=== PATIENT | female | born 1945 | race Caucasian/White ===

== ENCOUNTER → 2017-08-11 | Outpatient (CLI) | payer MEDICARE ==
--- NOTE | 2017-08-11 13:25 | MM ---
Reason for exam: additional evaluation requested from prior study. Last mammogram was performed 11 months ago. History: Patient is postmenopausal, has history of breast cancer at age 62, and is nulliparous. Mastectomy of the right breast, 2006. 3 excisional biopsies of the left breast. Took estrogen for 5 years. Took progesterone for 5 years. Taking antineoplastic for 4 years beginning at age 62. Physical Findings: Nurse did not find any significant physical abnormalities on exam. MG Diagnostic Mammo LT w CAD CC and MLO view(s) were taken of the left breast. Prior study comparison: August 30, 2016, left breast MG 3d diag mammo w/cad LT. August 20, 2015, left breast MG 3d diag mammo w/cad LT. There are scattered fibroglandular densities. Finding: There are typically benign calcifications in the left breast. No significant changes in finding since August 30, 2016 and August 20, 2015. These results were verbally communicated with the patient and result sheet given to the patient on 08/11/17. ASSESSMENT: Benign, BI-RAD 2 RECOMMENDATION: Follow-up diagnostic mammogram of the left breast in 1 year.
== END | disposition home or self-care (01) ==
LOC: RADMAMWWP 12:37
PROVIDERS: ATTEND Family Medicine
DX: C50.919 Malignant neoplasm of unspecified site of unspecified female breast (principal)

== ENCOUNTER → 2017-08-11 | Outpatient (CLI) | payer MEDICARE | END | disposition home or self-care (01) | LOC: LABPAT 13:13 | PROVIDERS: ATTEND Orthopaedic Surgery | DX: Z01.812 Encounter for preprocedural laboratory examination (principal); M16.11 Unilateral primary osteoarthritis, right hip | CPT/HCPCS: 36415; 86850; 86900; 86901; 87070 ==

== ENCOUNTER → 2018-01-08 | Outpatient (CLI) | payer MEDICARE ==
[2018-01-03 15:37] VITALS: BMI 29.2
[2018-01-08 13:41] VITALS: BP 142/93; PULSE 78; RESP 16
--- NOTE | 2018-01-09 06:21 | P.CONS ---
History of Present Illness - Reason for Consult Consult date: 01/08/18 - History of Present Illness This is 72 years old female with a chronic history of severe right knee pain and severe low back pain, the pain in the low back area is constant and increased with any activity, intensity of the pain is 7-8/10, aggravated with any movement, she denies any fever or night sweats denies any change in the bowel movement or urination, pain is more prominent on the right side radiated from the low back area towards the right hip and also to the right mckeon, patient also had severe right knee pain which is aggravated with any activity, patient had right total knee replacement ,the the knee replacement, did not help her knee pain, she is currently on multiple pain medication Ultram 50 mg every 6 hours and Garfield 7.5/325 every 6 hours and Mobic 15 mg daily and the current medication is not helping to control her pain and she denies any side effect of the medication. She denies any excessive drowsiness or sleepiness . Past Medical History Past Medical History: Cancer, Chest Pain / Angina, Fibromyalgia, GERD/Reflux, Hypertension, Osteoarthritis (OA) Additional Past Medical History / Comment(s): HIATAL HERNIA. hx RIGHT BREAST CA. History of Any Multi-Drug Resistant Organisms: None Reported Past Surgical History: Appendectomy, Breast Surgery, Cholecystectomy, Joint Replacement, Orthopedic Surgery Additional Past Surgical History / Comment(s): RODNEY FUNDAPLASTY. RIGHT MASTECTOMY. EDMUNDO CATARACTS. rt knee replacement, left rotator cuff Past Anesthesia/Blood Transfusion Reactions: Previous Problems w/ Anesthesia, Motion Sickness Additional Past Anesthesia/Blood Transfusion Reaction / Comm: Had hallucinations after knee surgery. "takes longer to come out" Past Psychological History: Anxiety Smoking Status: Former smoker Past Alcohol Use History: None Reported Additional Past Alcohol Use History / Comment(s): Quit smoking 25-30 yrs ago. Smoked 1-2 PPD for 30 yrs. Past Drug Use History: None Reported - Past Family History Mother Family Medical History: No Reported History Additional Family Medical History / Comment(s): arthritis Father Family Medical History: Myocardial Infarction (CT) Medications and Allergies Home Medications Medication Instructions Recorded Confirmed Type Escitalopram [Lexapro] 10 mg PO DAILY 09/12/14 01/08/18 History Calcium Carbonate/Vitamin D3 1 tab PO DAILY 08/11/17 01/08/18 History [Calcium 600-Vit D3 200 Tablet] Metoprolol Succinate [Toprol XL] 25 mg PO QAM 08/11/17 01/08/18 History traMADol HCl [Ultram] 50 mg PO Q6H PRN #40 tab 08/22/17 01/08/18 Rx Docusate [Colace] 100 mg PO DAILY PRN 01/03/18 01/08/18 History HYDROcodone/APAP 7.5-325MG [Garfield 1 each PO Q6HR PRN 01/03/18 01/08/18 History 7.5] Meloxicam [Mobic] 15 mg PO DAILY 01/03/18 01/08/18 History Allergies Allergy/AdvReac Type Severity Reaction Status Date / Time ciprofloxacin [From Cipro] Allergy Rash/Hives. Verified 01/08/18 13:33 HOT FLASHES. ciprofloxacin HCl Allergy Rash/Hives. Verified 01/08/18 13:33 [From Cipro] HOT FLASHES. Influenza Virus Vaccines Allergy See Comment Verified 01/08/18 13:33 Sulfa (Sulfonamide Allergy Rash/Hives. Verified 01/08/18 13:33 Antibiotics) HOT FLASHES Physical Exam Vitals: Vital Signs Pulse Resp BP Pulse Ox 01/08/18 13:36 78 16 142/93 99 Social history : not smoker , NO ETOH , NO Illegal drugs Review of Systems : 1- Constitutional : no chills , no fever , no night sweats , 2- Ears : no ear discharge , no change in hearing 3-Nose, Mouth ,Throat ; no bleeding gums, no sore throat , no epistaxis , 4-Cardiovascular : Denies chest pain, , no orthopnea , no palpitation 5-Respiratory : Denies cough , no dyspnea , no hemoptysis 6-Gastrointestinal :, no change in bowel habits , no coffee- ground emesis . 7-Genitourinary : No hematuria , no discharge , no incontinence, 8-Musculoskeletal : gait dysfunction , report low back pain , 9- Neurological : no ataxia , no tremor , no sezure , 10-Psychatric , no suicidal ideation no hallucination 11- Endocrine : no cold intolerence , no polyuria , no polydypsia , 12-Hematologic : no easy bleeding , no easy brusing , 13-Allergic / immunology : no angioedema , no wheezing ,no allergic rhinitis 14-Integumentary : no brttle nails , no change hair / nails , no foot/leg ulcers . Physical Examinations : 1-Constitutional : Cooperative , not in acute distress . 2-HEENT : nech ; supple , no Lymphadenopathy , no Thyromegaly , :eyes , no icterus, no photophobia . ENT : , normal oropharynx , no Thrush 3- Respiratory : Chest clear to auscultations Bilaterally , no wheezing . 4- Cardiovascular : regular rate and rhythem , S1 , S2 , no S3 , no S4. 5- Gastrointestinal: abdomen soft no tenderness , no organomegally . 6- Genitourinary : Defferred . 7-Integumentary : No cellulitis , no ulcers , normal skin turgor , no cyanotic . 8- neurologic : Cranial nerve II to XII intact , no focal neurological deffecit 9-psychatric : alert , oriented X 3 , appropriate affect , intact judgment and insight . 10-Lymphatic : no Lymphadenopathy. 11- musculoskeltal: abnormal gait . Lumber spine moter stegnth lower extremities ,thigh and legs 5/5 Right side , 5/5 Left side deep tendon reflexes : normal Knee Jerk , normal ankle Jerk positive lumber facet Loading Test Range of motion of the lumbar spine Flexion 30 degrees, extension 10 degrees strait leg raising test , positive at 30 degree right side and 60 left side Fabere test positive RT and positive LT . Sever tenderness over the Sacroiliac joint on the right side Decreased ability to flex the right knee joint, decreased ability to extend the right knee joint Results Comments: MRI of the lumbar spine done at [facility]= L4-L5 canal stenosis and disc herniation and facet arthropathy, L5-S1 facet arthropathy and disc bulging Assessment and Plan Assessment: Assessment and plan=1-right knee arthralgia, status post right total knee replacement, should be evaluated by Dr. Dr. Bhatt orthopedic surgeon, 2-chronic severe low back pain secondary to lumbar disc herniation, L4-L5 and L5-S1, and another contributing factor to her low back pain is lumbar facet arthropathy, and right sacroiliitis. Patient could benefit from lumbar epidural steroid injections (right side directed ), in the future if she continued to have pain we'll consider doing right sacroiliac joint , patient should continue using her current pain medication, and she is getting prescription refill from her primary care physician Time with Patient: Greater than 30
== END | disposition home or self-care (01) ==
LOC: PNWHC3 13:10
PROVIDERS: ATTEND Specialist
DX: G89.29 Other chronic pain (principal); M25.561 Pain in right knee; M51.27 Other intervertebral disc displacement, lumbosacral region; M46.1 Sacroiliitis, not elsewhere classified; M46.86 Other specified inflammatory spondylopathies, lumbar region; M79.7 Fibromyalgia; F41.9 Anxiety disorder, unspecified; K44.9 Diaphragmatic hernia without obstruction or gangrene; K21.9 Gastro-esophageal reflux disease without esophagitis; I10 Essential (primary) hypertension; M19.90 Unspecified osteoarthritis, unspecified site; Z85.3 Personal history of malignant neoplasm of breast; Z90.49 Acquired absence of other specified parts of digestive tract; Z87.891 Personal history of nicotine dependence; Z79.899 Other long term (current) drug therapy; Z79.891 Long term (current) use of opiate analgesic; Z96.651 Presence of right artificial knee joint; Z79.1 Long term (current) use of non-steroidal anti-inflammatories (NSAID); Z88.1 Allergy status to other antibiotic agents; Z88.2 Allergy status to sulfonamides; Z88.7 Allergy status to serum and vaccine
CPT/HCPCS: 99201

== ENCOUNTER 2018-02-06 06:23 | Day surgery (SDC) | payer MEDICARE ==
[2018-01-31 14:51] VITALS: BMI 29.5
[2018-02-06] MEDS ORDERED: LACTATED RINGERS 1,000 ML IV SCH (07:30)
[2018-02-06 07:45] VITALS: TEMP 98
[2018-02-06] MEDS ORDERED: LACTATED RINGERS 1,000 ML IV ONE (07:45)
[2018-02-06] MEDS ORDERED: LIDOCAINE 1% 20 ML VIAL (10MG/ML) FOR IV START INTRADERMA ONE (07:46)
[2018-02-06] MEDS ORDERED: IV FLUID CONTINUATION 1,000 ML IV ONE (08:33)
[2018-02-06 08:36] VITALS: RESP 16
[2018-02-06 08:53] VITALS: BP 130/81; PULSE 76
--- NOTE | 2018-02-06 09:20 | FL ---
Fluoroscopy HISTORY: Pain 15 seconds fluoroscopy time supplied to the referring clinician. 3 intraoperative C-arm images docum ent the procedure. See dictated report from anesthesia.
--- NOTE | 2018-02-06 10:50 | P.PCN ---
Date of Procedure: 02/06/18 Surgeon: Adrian Morin Pathology: none sent Condition: stable Disposition: PACU Description of Procedure: PREOPERATIVE DIAGNOSIS: 1-Lumbar radiculitis. POSTOPERATIVE DIAGNOSIS: 1-Lumbar radiculitis. PROCEDURE 1. Lumbar epidural steroid injection under fluoroscopic guidance at the L4-L5 level. 2. Lumbar epidurogram. ANESTHESIA: Local with 1% lidocaine; IV sedation with Versed/fentanyl. EBL: Minimal PROCEDURE INDICATION: The patient with low back pain and radiculitis symptoms unresponsive to conservative treatment, LESI #1 today. Fluoroscopy was used to optimize visualization of the needle placement and to maximize safety. No use of blood thinners. PROCEDURE DESCRIPTION / TECHNIQUE: The patient was seen and identified in the preoperative area. Risks, benefits, complications, and alternatives were discussed with the patient, including but not limited to bleeding, infection, nerve damage, allergic reactions to medications, and incomplete pain relief. The patient agreed to proceed with the procedure and signed the consent after all questions were answered. IV was started, and vital signs were stable. Patient was taken to the OR and time out was completed to confirm patient position, procedure, laterality of pain, and allergies. The patient was placed in the prone position on procedure table and a pillow was placed under the abdomen to reduce lumbar lordosis. The lumbosacral area was prepped and draped in the usual sterile fashion. Critical pause was taken. Vital signs were closely monitored during the procedure. Conscious sedation was used during the procedure to decrease patients anxiety. Using anterior-posterior fluoroscopy, the L4-L5 interlaminar space was identified and the skin over this site was marked and then infiltrated with 1% lidocaine subcutaneously in a right paramedian fashion. Subsequently, a 20- gauge 3.5-inch Tuohy epidural needle was inserted and advanced toward the epidural space using the Loss of resistance technique and guided by AP and lateral fluoroscopy. The correct needle position in the epidural space was verified with the injection of 2 mL of the water soluble contrast dye Isovue 200 contrast and observing an excellent epidurogram with the epidural spread of the dye, after negative aspiration for blood and CSF and in the absence of paresthesias. Again after negative aspiration, a 6 ml mixture containing 40 mg of Depo Medrol and 3 ml of preservative free Normal Saline, and 2 ml of preservative free lidocaine 1% solution was injected and a washout of epidurogram was seen. Needle was withdrawn intact, skin was cleansed, and bandages were applied. COMPLICATIONS: None COMMENTS: DISPOSITION / PLANS: The patient was placed in a supine position and transferred to the recovery area in a stable condition for observation. There was no evidence of lower extremity motor or sensory deficit after the procedure. Patient was discharged from the recovery room after meeting discharge criteria. Home discharge instructions were given to the patient by the staff. The patient was reexamined prior to discharge and there were no issues. The patient will schedule a follow up in the clinic in 2-4 weeks to evaluate efficacy. Per previous notes will consider R SIJ injection if relief minimal from LESI #1.
== END 2018-02-06 09:11 | disposition home or self-care (01) ==
LOC: ORPAIN 06:23
PROVIDERS: ATTEND Anesthesiology
DX: G89.29 Other chronic pain (principal); M51.16 Intervertebral disc disorders with radiculopathy, lumbar region; M46.96 Unspecified inflammatory spondylopathy, lumbar region; M46.1 Sacroiliitis, not elsewhere classified; M25.561 Pain in right knee; Z96.651 Presence of right artificial knee joint; I20.9 Angina pectoris, unspecified; M79.7 Fibromyalgia; K21.9 Gastro-esophageal reflux disease without esophagitis; I10 Essential (primary) hypertension; M19.90 Unspecified osteoarthritis, unspecified site; F41.9 Anxiety disorder, unspecified; K44.9 Diaphragmatic hernia without obstruction or gangrene; Z79.1 Long term (current) use of non-steroidal anti-inflammatories (NSAID); Z79.899 Other long term (current) drug therapy; Z88.1 Allergy status to other antibiotic agents; Z88.2 Allergy status to sulfonamides; Z88.7 Allergy status to serum and vaccine; Z91.048 Other nonmedicinal substance allergy status; Z85.3 Personal history of malignant neoplasm of breast; Z90.11 Acquired absence of right breast and nipple; Z90.49 Acquired absence of other specified parts of digestive tract; Z87.891 Personal history of nicotine dependence
CPT/HCPCS: 62323; J2250; J1030; J3010; Q9966

== ENCOUNTER → 2018-03-05 | Outpatient (CLI) | payer MEDICARE ==
[2018-03-05 15:56] VITALS: BP 161/70; PULSE 66; RESP 16
--- NOTE | 2018-03-05 16:02 | P.PN ---
Subjective Progress Note Date: 03/05/18 Principal diagnosis: Lumbar stenosis This is a 73-year-old female with history of fibromyalgia and lower back pain with bilateral groin pain. The patient had right total hip replacement. She received 1 epidural steroid injection in the lumbar area which had helped her pain only for 3 days as she states. She complains today of a new pain that has been there only for 2 or 3 weeks starting from her mid thoracic spine and going around to the front of the chest with no numbness or tingling and no allodynia to touch. She also has no skin rash in that area. There are no alleviating or relieving factors. The patient denies any weight loss or nocturnal pain recently. The patient has history of remote breast carcinoma with total removal of the right breast. She did not have to have any chemotherapy or radiotherapy. Objective - Vital Signs Vital signs: Intake & Output 03/04/18 03/05/18 03/05/18 18:59 06:59 18:59 Weight 78.925 kg - Constitutional General appearance: Present: obese - EENT Eyes: Present: PERRLA - Neurologic Neurologic: Present: CNII-XII intact - Psychiatric Psychiatric: Present: A&O x's 3, appropriate affect, intact judgment & insight ( Positive tenderness on the right side of the chest wall with no allodynia to touch and no skin rash.) Assessment and Plan Plan: This is a pleasant 73-year-old lady with history of lower back pain, bilateral groin pain and lumbar stenosis. She also has recent pain in the midthoracic area with radiation around the chest anteriorly with no paresthesia and no skin rash. The patient has history of remote breast carcinoma with total right breast removal 10 years ago and she said that since her breast surgery she's been having some pain on the right side of the chest however it has become more severe lately. It seems that this midthoracic pain is musculoskeletal in origin most likely, I do not see signs of tumor recurrence with the patient denying any nocturnal pain or any weight loss recently. Just to be on the safe side I will recommend that the patient sees her family for this physician or oncologist to rule out any recurrence of her breast tumor. We will repeat lumbar epidural steroid injection for only one more time. I will give her prescription for Lyrica 50 mg at night. The patient receives [place]eland 7.5 mg from her family physician who is weaning her off norco.
== END | disposition home or self-care (01) ==
LOC: PNWHC3 14:12
PROVIDERS: ATTEND Anesthesiology
DX: G89.28 Other chronic postprocedural pain (principal); M54.6 Pain in thoracic spine; M48.061 Spinal stenosis, lumbar region without neurogenic claudication; M79.7 Fibromyalgia; Z85.3 Personal history of malignant neoplasm of breast; Z96.641 Presence of right artificial hip joint; Z79.891 Long term (current) use of opiate analgesic; Z98.890 Other specified postprocedural states; Z90.11 Acquired absence of right breast and nipple
CPT/HCPCS: 99211

== ENCOUNTER 2018-04-04 07:55 | Day surgery (SDC) | payer MEDICARE ==
[2018-04-02 12:54] VITALS: BMI 29.8
[~2018-04-04 07:55] MED LIST: LACTATED RINGERS 1,000 ML IV SCH
[2018-04-04 08:27] VITALS: RESP 16; TEMP 97.5
[2018-04-04] MEDS ORDERED: LIDOCAINE 1% 20 ML VIAL (10MG/ML) FOR IV START INTRADERMA ONE (08:30)
[2018-04-04] MEDS ORDERED: IV FLUID CONTINUATION 1,000 ML IV ONE (10:10)
--- NOTE | 2018-04-04 10:19 | P.PCN ---
Date of Procedure: 04/04/18 Surgeon: Adrian Morin Pathology: none sent Condition: stable Disposition: PACU Description of Procedure: PREOPERATIVE DIAGNOSIS: 1-Lumbar radiculitis. POSTOPERATIVE DIAGNOSIS: 1-Lumbar radiculitis. PROCEDURE 1. Lumbar epidural steroid injection under fluoroscopic guidance at the L4-L5 level. 2. Lumbar epidurogram. ANESTHESIA: Local with 1% lidocaine; IV sedation with Versed/fentanyl. EBL: Minimal PROCEDURE INDICATION: The patient with low back pain and radiculitis symptoms unresponsive to conservative treatment, LESI #3 today after good relief from previous two. Fluoroscopy was used to optimize visualization of the needle placement and to maximize safety. No use of blood thinners. PROCEDURE DESCRIPTION / TECHNIQUE: The patient was seen and identified in the preoperative area. Risks, benefits, complications, and alternatives were discussed with the patient, including but not limited to bleeding, infection, nerve damage, allergic reactions to medications, and incomplete pain relief. The patient agreed to proceed with the procedure and signed the consent after all questions were answered. IV was started, and vital signs were stable. Patient was taken to the OR and time out was completed to confirm patient position, procedure, laterality of pain, and allergies. The patient was placed in the prone position on procedure table and a pillow was placed under the abdomen to reduce lumbar lordosis. The lumbosacral area was prepped and draped in the usual sterile fashion. Critical pause was taken. Vital signs were closely monitored during the procedure. Conscious sedation was used during the procedure to decrease patients anxiety. Using anterior-posterior fluoroscopy, the L4-L5 interlaminar space was identified and the skin over this site was marked and then infiltrated with 1% lidocaine subcutaneously in a right paramedian fashion. Subsequently, a 20- gauge 3.5-inch Tuohy epidural needle was inserted and advanced toward the epidural space using the Loss of resistance technique and guided by AP and lateral fluoroscopy. The correct needle position in the epidural space was verified with the injection of 2 mL of the water soluble contrast dye Isovue 200 contrast and observing an excellent epidurogram with the epidural spread of the dye, after negative aspiration for blood and CSF and in the absence of paresthesias. Again after negative aspiration, a 6 ml mixture containing 40 mg of Depo Medrol and 3 ml of preservative free Normal Saline, and 2 ml of preservative free lidocaine 1% solution was injected and a washout of epidurogram was seen. Needle was withdrawn intact, skin was cleansed, and bandages were applied. COMPLICATIONS: None COMMENTS: DISPOSITION / PLANS: The patient was placed in a supine position and transferred to the recovery area in a stable condition for observation. There was no evidence of lower extremity motor or sensory deficit after the procedure. Patient was discharged from the recovery room after meeting discharge criteria. Home discharge instructions were given to the patient by the staff. The patient was reexamined prior to discharge and there were no issues. The patient will schedule a follow up in the clinic in 2-4 weeks to evaluate efficacy.
[2018-04-04 10:30] VITALS: BP 132/97; PULSE 64
--- NOTE | 2018-04-04 12:01 | FL ---
Fluoroscopy HISTORY: Pain 6 seconds fluoroscopy time supplied to the referring clinician. 3 intraoperative C-arm images docume nt the procedure. See dictated report from anesthesia.
== END 2018-04-04 10:49 | disposition home or self-care (01) ==
LOC: ORPAIN 07:55
PROVIDERS: ATTEND Anesthesiology
DX: M54.16 Radiculopathy, lumbar region (principal); M79.7 Fibromyalgia; Z96.641 Presence of right artificial hip joint; Z90.11 Acquired absence of right breast and nipple; Z85.3 Personal history of malignant neoplasm of breast; M48.061 Spinal stenosis, lumbar region without neurogenic claudication; Z88.1 Allergy status to other antibiotic agents; Z88.2 Allergy status to sulfonamides; Z88.7 Allergy status to serum and vaccine; Z91.048 Other nonmedicinal substance allergy status
CPT/HCPCS: 62323; J2250; J1030; J3010; Q9966

== ENCOUNTER 2018-05-01 07:48 | Day surgery (SDC) | payer MEDICARE ==
[2018-04-30 08:44] VITALS: BMI 29.5
[2018-05-01 08:52] VITALS: RESP 16; TEMP 97
[2018-05-01] MEDS ORDERED: LIDOCAINE 1% 20 ML VIAL (10MG/ML) FOR IV START INTRADERMA ONE (08:56)
--- NOTE | 2018-05-01 10:00 | P.PCN ---
Date of Procedure: 05/01/18 Procedure(s) Performed: PREOPERATIVE DIAGNOSIS: 1- Lumbar herniated Disc Diseases 2-Lumbar spondylosis with Facet arthropathy without myelopathy. POSTOPERATIVE DIAGNOSIS: 1-Lumber herniated Disc Diseases 2-Lumbar spondylosis with Facet arthropathy without myelopathy. PROCEDURE 1. Lumbar epidural steroid injection under fluoroscopic guidance at the L4-5 level. 2. Lumbar epidurogram. ANESTHESIA: Local with 1% lidocaine 3 ml and , moderate sedation with intravenous Versed 2 mg ,and fentanyle 50 Mcg EBL: Minimal PROCEDURE INDICATION: The patient with low back pain and radiculitis symptoms unresponsive to conservative treatment. Fluoroscopy was used to optimize visualization of the needle placement and to maximize safety. PROCEDURE DESCRIPTION / TECHNIQUE: The patient was seen and identified in the preoperative area. Risks, benefits , complications including but not limited to infections ,bleeding ,allergic reaction to the medications ,nerve damage and not complete pain releife , and alternatives were discussed with the patient. The patient agreed to proceed with the procedure and signed the consent. IV was started, and vital signs were stable. Patient was taken to the OR and time out was completed. The patient was placed in the prone position on procedure table and a pillow was placed under the abdomen to reduce lumbar lordosis. The lumbosacral area was prepped and draped in the usual sterile fashion.ere closely monitored during the procedure. Conscious sedation was used during the procedure to decrease patients anxiety. Vital signs was monitered during the entire procedure. Using anterior-posterior fluoroscopy, the L4-5 interlaminar space was identified and the skin over this site was marked and then infiltrated with 1% lidocaine subcutaneously. Subsequently, a 20-gauge Tuohy epidural needle was inserted and advanced toward the epidural space using the ``Loss of resistance technique and guided by AP and lateral fluoroscopy. The correct needle position in the epidural space was verified with the injection of 2 mL of the water soluble contrast dye Isovue 200 contrast and observing an excellent epidurogram with the epidural spread of the dye, after negative aspiration for blood and CSF and in the absence of paresthesias. Again after negative aspiration, a 6 ml mixture containing 40 mg of Depo-Medrol, and 2 ml of preservative free Normal Saline, and 2 ml of preservative free lidocaine 1% solution was injected and a washout of epidurogram was seen. Needle was withdrawn intact, skin was cleansed, and bandages were applied. COMPLICATIONS: None DISPOSITION / PLANS: The patient was placed in a supine position and transferred to the recovery area in a stable condition for observation. There was no evidence of lower extremity motor or sensory deficit after the procedure. Patient was discharged from the recovery room after meeting discharge criteria. Home discharge instructions were given to the patient by the staff. The patient was reexamined prior to discharge. The patient will schedule a follow up in the clinic in 2-4 weeks.
[2018-05-01 10:49] VITALS: BP 154/67; PULSE 59
[2018-05-01] MEDS ORDERED: IV FLUID CONTINUATION 1,000 ML IV ONE (10:51)
--- NOTE | 2018-05-01 12:29 | FL ---
Fluoroscopy HISTORY: Pain 3 seconds fluoroscopy time supplied to the referring clinician. 1 intraoperative C-arm images doc ument the procedure. See dictated report from anesthesia.
== END 2018-05-01 11:02 | disposition home or self-care (01) ==
LOC: ORPAIN 07:48
PROVIDERS: ATTEND Specialist
DX: M51.16 Intervertebral disc disorders with radiculopathy, lumbar region (principal); M47.26 Other spondylosis with radiculopathy, lumbar region; I10 Essential (primary) hypertension; Z79.1 Long term (current) use of non-steroidal anti-inflammatories (NSAID); Z88.1 Allergy status to other antibiotic agents; Z88.2 Allergy status to sulfonamides; Z88.7 Allergy status to serum and vaccine; Z91.048 Other nonmedicinal substance allergy status
CPT/HCPCS: 62323; J2250; J1030; J3010; 99211

== ENCOUNTER → 2018-09-05 | Outpatient (CLI) | payer MEDICARE ==
--- NOTE | 2018-09-06 11:08 | MM ---
Reason for exam: additional evaluation requested from prior study. Last mammogram was performed 1 year and 1 month ago. History: Patient is postmenopausal, has history of breast cancer at age 62, and is nulliparous. Mastectomy of the right breast, 2006. 3 excisional biopsies of the left breast. Took estrogen for 5 years. Took progesterone for 5 years. Taking antineoplastic for 4 years beginning at age 62. Physical Findings: Nurse Summary: A 1 x 1.5 cm nodule in the left breast below excision (nurse ts). MG 3D Diag Mammo W/Cad LT CC and MLO view(s) were taken of the left breast. Prior study comparison: August 11, 2017, left breast MG diagnostic mammo LT w CAD. August 30, 2016, left breast MG 3d diag mammo w/cad LT. August 20, 2015, left breast MG 3d diag mammo w/cad LT. August 18, 2014, left breast MG diagnostic mammo LT w CAD. August 16, 2013, left diagnostic mammogram w/CAD. There are benign-appearing diffuse calcification the left breast. There are increasing linear arranged calcifications in the left lower outer quadrant 8 cm from the nipple. Stereotactic core biopsy recommended. Finding is changed when compared to previous study. These results were verbally communicated with the patient and result sheet given to the patient on 09/05/18. ASSESSMENT: Suspicious, BI-RAD 4 RECOMMENDATION: Stereotactic core biopsy of the left breast. Manage on a clinical basis with regard to right side lump at mastectomy site. Recurrence not excluded. Called Dr. Dodge with mammographic findings and has scheduled an appointment for the patient for 09/10/18 at 1:[address] Mendosa. PRELIMINARY REPORT CALLED AND FAXED TO DR. MENDOSA ON 09/06/18.
--- NOTE | 2018-09-06 11:10 | USB ---
Reason for exam: clinical finding. History: Patient is postmenopausal, has history of breast cancer at age 62, and is nulliparous. Mastectomy of the right breast, 2007. 3 excisional biopsies of the left breast. Took estrogen for 5 years. Took progesterone for 5 years. Taking antineoplastic for 4 years beginning at age 62. US Breast Limited RT Right limited breast ultrasound including focal area of concern, retroareolar and axilla demonstrates a 2.6 x 0.6 x 1.9cm mixed lesion at 5 o'clock. These results were verbally communicated with the patient and result sheet given to the patient on 09/05/18. ASSESSMENT: Suspicious, BI-RAD 4 RECOMMENDATION: Aspiration and ultrasound core biopsy of the right breast. Manage on a clinical basis with regard to palpable abnormality. Called Dr. Dodge with mammographic findings and has scheduled an appointment for the patient for 09/10/18 at 1:[address] Mendosa. PRELIMINARY REPORT CALLED AND FAXED TO DR. MENDOSA ON 09/06/18.
== END | disposition home or self-care (01) ==
LOC: RADMAMWWP 10:04
PROVIDERS: ATTEND Family Medicine
DX: R92.8 Other abnormal and inconclusive findings on diagnostic imaging of breast (principal)
CPT/HCPCS: 77065; 76642; G0279; 77061

== ENCOUNTER → 2018-09-25 | Day surgery (SDC) | payer MEDICARE ==
[2018-09-25 11:31] VITALS: RESP 15; TEMP 98.1; BMI 30.9
--- NOTE | 2018-09-25 13:58 | MM ---
EXAMINATION TYPE: MG stereo VAD BX LT DATE OF EXAM: 09/25/2018 COMPARISON: Previous mammogram 08/11/2017 CLINICAL HISTORY: Abnormal mammogram TECHNIQUE: Stereotactic guided core biopsy of left breast. FINDINGS: The procedure of stereotactic guided core biopsy was explained to the patient. Benefits, alternatives, and risks were discussed. An informed consent was then obtained. The shortness pathway for biopsy was chosen. Shortness pathway was inferior approach. A vacuum assisted biopsy gun was used to obtain multiple core samples. Marker clip was deployed at the site of biopsy. The patient tolerated the procedure well without any immediate complication. The patient was kept in the radiology department for short stay after the procedure and then discharged home in stable condition. Targeted calcifications are identified in specimen mammogram. Post biopsy mammogram shows the clip to appear in satisfactory position relative to the targeted area of concern on the preprocedure images. Originally described microcalcifications appear somewhat more lateral to the calcifications that have been removed. IMPRESSION: Stereotactic vacuum-assisted breast biopsy as described. Originally described calcifications for biopsy are slightly medial to the calcifications that were removed. Pathology is pending. Short interval follow-up diagnostic mammogram in 3-6 months is recommended, patient can be rescheduled for additional biopsy following wound healing. Pathology Results: Benign LEFT BREAST, NEEDLE CORE BIOPSY: Fibrocystic change with focal dystrophic calcification. Recommendation Follow up mammogram of the left breast in 6 months. LJ
[2018-09-25 16:02] VITALS: BP 163/72; PULSE 69
== END ==
LOC: RADMAMWWP 11:03
PROVIDERS: ATTEND Surgery
DX: N60.12 Diffuse cystic mastopathy of left breast (principal); R92.1 Mammographic calcification found on diagnostic imaging of breast; R92.8 Other abnormal and inconclusive findings on diagnostic imaging of breast; Z88.1 Allergy status to other antibiotic agents; Z88.2 Allergy status to sulfonamides; Z88.7 Allergy status to serum and vaccine; Z91.09 Other allergy status, other than to drugs and biological substances
CPT/HCPCS: 88305; 19081; A4648; J2001

== ENCOUNTER → 2018-11-02 | Outpatient (CLI) | payer MEDICARE ==
[2018-11-02 13:08] LABS: HCT 39.9 % (34.0-46.0); HGB 12.5 gm/dL (11.4-16.0); MCHC 31.4 g/dL (31.0-37.0); MCV 95.5 fL (80.0-100.0); Mean Platelet Volume 7.2; Platelet Count 257 k/uL (150-450); RBC 4.18 m/uL (3.80-5.40); RDW 12.8 % (11.5-15.5); WBC 6.4 k/uL (3.8-10.6)
[2018-11-02 19:52] LABS: Anion Gap 7.8 mmol/L (4.00-12.00); Carbon Dioxide 28.2 mmol/L (21.6-31.8); Potassium 4.8 mmol/L (3.5-5.5)
== END ==
LOC: LABWHC1 12:16
PROVIDERS: ATTEND Internal Medicine Interventional Cardiology
DX: Z01.812 Encounter for preprocedural laboratory examination (principal); I10 Essential (primary) hypertension; R09.89 Other specified symptoms and signs involving the circulatory and respiratory systems; R07.9 Chest pain, unspecified
CPT/HCPCS: 36415; 80051; 82565; 84520; 85027

== ENCOUNTER 2018-11-20 10:45 | Day surgery (SDC) | payer MEDICARE ==
[~2018-11-20 10:45] MED LIST changes: +ALPRAZolam 0.25 MG TAB PO PRN; +ALPRAZolam 0.5 MG TAB PO PRN; +ASPIRIN 325 MG TAB PO STA; +ATORVASTATIN 80 MG TAB PO STA; -LACTATED RINGERS 1,000 ML IV SCH; +NITROGLYCERIN SL TABS 0.4 MG TAB SUBLINGUAL PRN; +SODIUM CHLORIDE 0.9% 1,000 ML in EMPTY BAG 1 BAG IV ONE
[2018-11-20] MEDS ORDERED: LIDOCAINE 1% INJ 10MG/ML (20 ML MDV) ONE (12:51)
[2018-11-20] MEDS ORDERED: MIDAZOLAM 2 MG/2 ML VIAL IV ONE (13:03)
[2018-11-20] MEDS ORDERED: hydrALAZINE HCL 20 MG/ML 1 ML VIAL ONE (13:04)
[2018-11-20] MEDS: hydrALAZINE HCL 20 MG/ML 1 ML VIAL IV ONE ×2 (13:07→13:46)
[2018-11-20] MEDS ORDERED: fentaNYL (PF) 50 MCG/ML 2 ML AMP ONE (13:07)
[2018-11-20] MEDS ORDERED: fentaNYL (PF) 50 MCG/ML 2 ML AMP IV ONE (13:12)
[2018-11-20] MEDS ORDERED: CLOPIDOGREL 75 MG TAB ONE ×3 (13:37→14:40)
[2018-11-20] MEDS ORDERED: BIVALIRUDIN BOLUS 250 MG/50 ML IV ONE (13:38)
[2018-11-20] MEDS ORDERED: CLOPIDOGREL 75 MG TAB PO ONE (13:42)
[2018-11-20] MEDS ORDERED: BIVALIRUDIN 250 MG in SODIUM CHLORIDE 0.9% 50 ML IV ONE (13:43)
[2018-11-20] MEDS ORDERED: NITROGLYCERIN 1000MCG/10ML SYRINGE INTRACORON ONE ×2 (13:48)
[2018-11-20] MEDS ORDERED: IOPAMIDOL-370 125ML BTL INJ ONE (13:50)
[2018-11-20] MEDS ORDERED: hydrALAZINE HCL 20 MG/ML 1 ML VIAL IVP PRN (13:58)
[2018-11-20] MEDS ORDERED: ZOLPIDEM 5 MG TAB PO PRN (13:59)
[2018-11-20] MEDS ORDERED: MAG HYDROX/AL HYDROX/SIMETH 30 ML CUP PO PRN (13:59)
[2018-11-20] MEDS ORDERED: RX INFO: IV CONTRAST WAS GIVEN 1 EACH MISC MISCELLANE PRN (13:59)
[2018-11-20] MEDS ORDERED: ATROPINE SULFATE 0.1 MG/ML 10ML SYRINGE IV PRN (13:59)
[2018-11-20] MEDS ORDERED: NITROGLYCERIN SL TABS 0.4 MG TAB SUBLINGUAL PRN (13:59)
[2018-11-20] MEDS ORDERED: SODIUM CHLORIDE 0.9% 1,000 ML IV SCH (14:00)
--- NOTE | 2018-11-20 14:27 | LTR ---
DATE OF SERVICE: 11/20/2018 RE: Coni Beatty Dear Dr. Dodge; Ms. Coni Beatty underwent a heart catheterization today and she was found to have critical disease involving the mid LAD and severe disease involving the PDA branch of the circumflex. She underwent successful stenting of the LAD with good angiographic results. Thank you for allowing us to participate in her care and please do not hesitate to call if you have any question or concern. Sincerely, Jorgito Gonsalez MD MMEDWINA / JACOB: [id number] /
[2018-11-20] MEDS ORDERED: MAG HYDROX/AL HYDROX/SIMETH 30 ML CUP ONE (14:40)
--- NOTE | 2018-11-20 14:42 | CC ---
CARDIAC CATHETERIZATION REPORT CARDIAC CATHETERIZATION AND PERCUTANEOUS CORONARY INTERVENTION: DATE OF SERVICE: 11/20/2018 PERFORMING PHYSICIAN: Jorgito Gonsalez MD, Senior Information Security Analyst. PROCEDURE PERFORMED: 1. Right heart catheterization. 2. Left heart catheterization. 3. Selective right and left coronary angiogram. 4. Successful stenting of the mid LAD using 2.0 x 12 mm [place] drug-eluting stent with an excellent angiographic result and reduction of stenosis from 90% to 0%. INDICATION: This is a pleasant 73-year-old female patient who was seen for shortness of breath, chest discomfort. The chest discomfort most of the time exertional. She underwent an echocardiogram which revealed normal LV function with evidence of moderate pulmonary hypertension. Because of that, she is scheduled today to undergo a right and left heart catheterization. APPROACH: Right common femoral artery and right common femoral vein. COMPLICATION: None. LEVEL OF SEDATION: Moderate with sedation length of 48 minutes. PROCEDURE DESCRIPTION: After obtaining an informed consent, the patient was brought to the cardiac labor specialist. The right common femoral vein was cannulated using micropuncture technique, the micropuncture wire passed easily. then I placed an 8-[place] sheath in the right common femoral vein. The right common femoral artery was cannulated. Also using micropuncture technique, the micropuncture wire passed easily, then I placed a 6-[place] sheath in the right common femoral artery. After that, I did right heart catheterization using 6-[place]icaraguan swan catheter. Subsequently, I did selective right and left coronary angiogram using JR4 and JL3.5 catheters. Left heart catheterization was performed using 6-[place]icaraguan pigtail catheter. The procedure was completed without any complication. HEMODYNAMICS: 1. The pulmonary artery pressures were as follows, systolic 37, diastolic 16 and mean of 26 mmHg. 2. RV pressures were as follows, systolic 41 and end-diastolic of 11 mmHg. 3. RA pressure was 6 mmHg. 4. The left ventricular end-diastolic pressure was 10 mmHg. SELECTIVE CORONARY ANGIOGRAM: 1. The right coronary artery is a moderate caliber vessel and it is a nondominant vessel and seems to be angiographically normal. 2. The left main is a short left main but appeared to be angiographically normal. It bifurcates into the left circumflex and left anterior descending artery. 3. The left circumflex is a large caliber vessel. It is a nondominant vessel. The proximal circumflex appeared to have intermediate lesion only in the range of 50%. The mid circumflex appeared to be angiographically normal. The circumflex distally appeared to be normal and bifurcates into PDA and PLV branches. The proximal PDA branch appeared to have a tight lesion in the range of 70%. The PLV branch appeared to be angiographically normal. 4. The LAD, the proximal LAD appeared to be calcified with mild disease only. The mid LAD appeared to have a lesion in the range of 50% with another lesion distal to that lesion appeared to be in the range of 90%. The LAD in the very distal portion appeared to be angiographically normal. using Angiomax. Subsequently, I did engage the left main using JL3.5 guide. The LAD was wired using a whisper wire. After that I did balloon angioplasty using 3.5 x 12 mm balloon before I deployed 2.0 x 12 mm balloon and then full stent was performed under fluoroscopy guidance and deployed under 20 atmospheres for 20 seconds with the following angiogram showing good angiographic result and without stenosis from 90% to 0%. There was a flap proximal which I did not touch. CONCLUSION: 1. Mild pulmonary hypertension. The PA systolic pressure was 37 mmHg and mean of 26 mmHg. 2. Critical disease involving the mid LAD. The LAD was stented as described above. 3. Severe disease involving the PDA branch of left circumflex. The disease appeared to be in the range of 70%. POSTPROCEDURE MANAGEMENT: 1. Dual anti-platelet therapy. 2. Risk factor modifications. 3. If the patient continues to be symptomatic, we will proceed with PCI of the PDA. MMODL / IJN: [id number] /
[2018-11-20] MEDS ORDERED: ONDANSETRON 4 MG/2 ML VIAL ONE ×2 (14:48→15:29)
[2018-11-20 19:03] VITALS: RESP 18
[2018-11-21 06:10] LABS: Basophils % (A) 1 %; Eosinophils # (A) 0.1 k/uL (0-0.7); Eosinophils % (A) 2 %; HCT 37.8 % (34.0-46.0); HGB 11.7 gm/dL (11.4-16.0); Lymphocytes # (A) 1.7 k/uL (1.0-4.8); Lymphocytes % (A) 26 %; MCH 29.4 pg (25.0-35.0); MCHC 31.1 g/dL (31.0-37.0); MCV 94.6 fL (80.0-100.0); Mean Platelet Volume 7.3; Monocytes # (A) 0.4 k/uL (0-1.0); Monocytes % (A) 6 %; Neutrophils # (A) 4.2 k/uL (1.3-7.7); Neutrophils % (A) 63 %; Platelet Count 169 k/uL (150-450); RBC 3.99 m/uL (3.80-5.40); RDW 13.4 % (11.5-15.5); WBC 6.7 k/uL (3.8-10.6)
[2018-11-21 06:34] LABS: Calcium 9.1 mg/dL (8.4-10.2); Potassium 4.6 mmol/L (3.5-5.1)
[2018-11-21 08:06] VITALS: BP 134/69; PULSE 98; TEMP 97.8
[2018-11-21] MEDS ORDERED: ASPIRIN 81 MG PO SCH (09:00)
[2018-11-21] MEDS ORDERED: MELOXICAM 7.5 MG TAB PO SCH (09:00)
[2018-11-21] MEDS ORDERED: CHOLECALCIFEROL 1,000 UNIT TAB PO SCH (09:00)
[2018-11-21] MEDS ORDERED: METOPROLOL SUCCINATE (ER) 25 MG TAB.ER.24H PO SCH (09:00)
[2018-11-21] MEDS ORDERED: CLOPIDOGREL 75 MG TAB PO SCH (09:00)
[2018-11-21] MEDS ORDERED: ESCITALOPRAM 10 MG TAB PO SCH (09:00)
[2018-11-21] MEDS ORDERED: ATORVASTATIN 80 MG TAB PO SCH ×2 (09:00→21:00)
[2018-11-21] MEDS ORDERED: CALCIUM CARB-VIT D 500MG-200UN 1 EACH TAB PO SCH (09:00)
[2018-11-21 09:38] VITALS: BMI 30.2
--- NOTE | 2018-11-21 14:03 | P.PN ---
Subjective Progress Note Date: 11/21/18 Discharge note This is a pleasant 73-year-old female who was evaluated as an outpatient for symptoms of chest discomfort and shortness of breath. Is advised to undergo cardiac catheterization which was performed yesterday by Dr. Gonsalez. Subsequently patient underwent angioplasty with stent placement of the left anterior descending artery. Seen and examined this morning, denied any chest pain or difficulty in breathing. She's been up ambulating without any difficulty. Hemodynamically she is stable. EKG from this morning shows normal sinus rhythm with no changes from PCI. Objective - Vital Signs Vital signs: Vital Signs Temp 97.8 F 11/21/18 08:00 Pulse 98 11/21/18 08:00 Resp 18 11/21/18 08:00 BP 134/69 11/21/18 08:00 Pulse Ox 97 11/21/18 08:00 Intake & Output 11/20/18 11/21/18 11/21/18 18:59 06:59 18:59 Intake Total 507 Balance 507 Weight 80 kg 80 kg Intake: IV 192 Intake, IV Titration 75 Amount Sodium Chloride 0.9% 1, 75 000 ml @ 75 mls/hr IV . [id number] KOURTNEY Rx#:[id number] Oral 240 Other: # Voids 1 0 - Exam PHYSICAL EXAMINATION: GENERAL: 73-year-old female in no acute distress at the time of my examination HEENT: Head is atraumatic, normocephalic. Pupils equal, round. Sclera anicteric. Conjunctiva are clear. Mucous membranes of the mouth are moist. Neck is supple. There is no elevated jugular venous pressure. No carotid bruit is heard. HEART EXAMINATION: Heart S1, S2 normal. No murmur or gallop heard. CHEST EXAMINATION: Lungs are clear to auscultation and precussion. No chest wall tenderness is noted on palpation or with deep breathing. ABDOMEN: Soft, nontender. Bowel sounds are heard. No organomegaly noted. EXTREMITIES: 2+ peripheral pulses with no evidence of peripheral edema and no calf tenderness noted. Right groin does have some mild ecchymosis, no hematoma , good distal pulse. NEUROLOGIC patient is awake, alert and oriented 3 . . - Labs CBC & Chem 7: 11/21/18 05:27 11/21/18 05:27 Labs: Abnormal Lab Results - Last 24 Hours (Table) 11/21/18 Range/Units 05:27 Chloride 108 H (98-107) mmol/L Assessment and Plan Plan: Assessment and plan #1 status post angioplasty and stenting of the LAD #2 hyperlipidemia Plan Patient will be discharged home today. Follow-up appointment to see Dr. Chavez in the office in one week. She will be discharged home on Toprol XL 25 mg daily , Lexapro 10 mg daily, vitamin D, calcium, aspirin 81 mg daily, Plavix 75 mg daily, Lipitor 80 mg daily and sublingual nitroglycerin as needed for chest pain. DNP note has been reviewed, I agree with a documented findings and plan of care. Patient was seen and examined.
== END 2018-11-21 09:45 | disposition home or self-care (01) ==
LOC: CATHCVL 10:45 → 3SCARD 15:42 → CATHCVL 11-21 09:45
PROVIDERS: ATTEND Internal Medicine Interventional Cardiology
DX: I25.110 Atherosclerotic heart disease of native coronary artery with unstable angina pectoris (principal); R94.39 Abnormal result of other cardiovascular function study; I10 Essential (primary) hypertension; E78.00 Pure hypercholesterolemia, unspecified; E78.5 Hyperlipidemia, unspecified; I27.20 Pulmonary hypertension, unspecified; Z82.49 Family history of ischemic heart disease and other diseases of the circulatory system; Z72.0 Tobacco use; Z79.1 Long term (current) use of non-steroidal anti-inflammatories (NSAID); Z79.82 Long term (current) use of aspirin; Z79.899 Other long term (current) drug therapy; Z88.1 Allergy status to other antibiotic agents; Z88.2 Allergy status to sulfonamides; Z91.011 Allergy to milk products
CPT/HCPCS: 93460; 80048; 85025; C9600; C1760; C1769 ×5; C1887; C1725; C1894 ×2; C1874; J2250; J0360; J2405; J3010; J0583; Q9967

== ENCOUNTER 2019-01-31 06:23 | Day surgery (SDC) | payer MEDICARE ==
[2019-01-31] MEDS ORDERED: SODIUM CHLORIDE 0.9% 1,000 ML in EMPTY BAG 1 BAG IV ONE (06:28)
[2019-01-31] MEDS ORDERED: ALPRAZolam 0.25 MG TAB PO PRN (06:28)
[2019-01-31] MEDS ORDERED: ASPIRIN 325 MG TAB PO ONE (06:28)
[2019-01-31] MEDS: MIDAZOLAM 2 MG/2 ML VIAL IV ONE ×2 (07:58→08:24)
[2019-01-31] MEDS ORDERED: LIDOCAINE 1% INJ 10MG/ML (20 ML MDV) SQ ONE (08:01)
[2019-01-31] MEDS: VERAPAMIL SYRINGE (5 MG/10 ML) INTRAARTER ONE ×2 (08:02→08:26)
[2019-01-31] MEDS ORDERED: BIVALIRUDIN BOLUS 250 MG/50 ML IV ONE (08:04)
[2019-01-31] MEDS ORDERED: BIVALIRUDIN 250 MG in SODIUM CHLORIDE 0.9% 50 ML IV ONE (08:05)
[2019-01-31] MEDS ORDERED: hydrALAZINE HCL 20 MG/ML 1 ML VIAL IV ONE (08:05)
[2019-01-31] MEDS ORDERED: NITROGLYCERIN 1000MCG/10ML SYRINGE INTRACORON ONE (08:23)
[2019-01-31] MEDS ORDERED: CLOPIDOGREL 75 MG TAB PO ONE (08:26)
[2019-01-31] MEDS ORDERED: IOPAMIDOL-370 125ML BTL INJ ONE (08:26)
[2019-01-31] MEDS ORDERED: NITROGLYCERIN SL TABS 0.4 MG TAB SUBLINGUAL PRN ×2 (08:36→08:37)
[2019-01-31] MEDS ORDERED: MAG HYDROX/AL HYDROX/SIMETH 30 ML CUP PO PRN (08:37)
[2019-01-31] MEDS ORDERED: RX INFO: IV CONTRAST WAS GIVEN 1 EACH MISC MISCELLANE PRN (08:37)
[2019-01-31] MEDS ORDERED: ZOLPIDEM 5 MG TAB PO PRN (08:37)
[2019-01-31] MEDS ORDERED: ATROPINE SULFATE 0.1 MG/ML 10ML SYRINGE IV PRN (08:37)
[2019-01-31] MEDS ORDERED: SODIUM CHLORIDE 0.9% 1,000 ML IV SCH (08:45)
[2019-01-31] MEDS ORDERED: ONDANSETRON 4 MG/2 ML VIAL ONE (08:48)
--- NOTE | 2019-01-31 09:01 | LTR ---
January 31, 2019 Re: Coniade Beatty Dear Dr. Dodge: Ms. Coni Beatty underwent successful stenting of the left circumflex with good angiographic results and without any complication. Thank you again for allowing me to participate in her care and please do not hesitate to call if you have any questions or concerns. Sincerely, MD CASEY Perez / FLYN: [id number] /
--- NOTE | 2019-01-31 09:40 | PTCA ---
PERCUTANEOUSTRANS CORORONARY ANGIOGRAPHY DATE OF SERVICE: January 31, 2019 PERFORMING PHYSICIAN: Jorgito Gonsalez MD, resourcing consultant. PROCEDURE PERFORMED: Successful stenting of the second obtuse marginal branch of left circumflex using 2.0 x 15 mm [place] drug-eluting stent with an excellent angiographic result. INDICATION: This is a 73-year-old lady with history of coronary artery disease and prior stenting of the LAD, who was found to have severe disease involving OM2 and was brought today to undergo an intervention on OM 2. APPROACH: Right radial artery. COMPLICATION: None. LEVEL OF SEDATION: Moderate with sedation length of 26 minutes. PROCEDURE DESCRIPTION: After obtaining an informed consent, the patient was brought to cardiac laborer operator. The right radial artery was cannulated using micropuncture technique, the micropuncture wire passed easily then I placed a 6-Somali sheath 11 cm in the right radial artery. At that point, anticoagulation was initiated using Angiomax. Subsequently I gave the patient 2 mg of verapamil IA. I did engage the left main using JL3.5 Guide. Subsequently I wired OM2 using a run- through wire. I attempted advancing the stent to OM2, but the stent will not cross the mid left circumflex, so because of that, I did wire the OM2 using a heidi wire with another run-through wire. With that, I was able to advance the stent to the OM2 where the stent was positioned under fluoroscopy guidance and deployed under 12 atmospheres for 20 seconds with the following angiogram showing excellent angiographic results and the procedure was completed without any complication. POSTPROCEDURE MANAGEMENT: 1. Dual antiplatelet therapy. 2. Risk factor modifications. 3. Follow up with the patient. MMODL / IJN: [id number] /
[2019-01-31] MEDS ORDERED: ONDANSETRON 4 MG/2 ML VIAL IVP STA (10:32)
[2019-01-31] MEDS: NITROFURANTOIN MONOHYD/M-CRYST 100 MG CAP PO SCH ×2 (12:59→19:55)
[2019-01-31] MEDS: ESCITALOPRAM 10 MG TAB PO SCH (13:00)
[2019-01-31] MEDS: CHOLECALCIFEROL 1,000 UNIT TAB PO SCH (13:00)
[2019-01-31] MEDS: CALCIUM CARB-VIT D 500MG-200UN 1 EACH TAB PO SCH (13:00)
[2019-01-31] MEDS: METOPROLOL SUCCINATE (ER) 25 MG TAB.ER.24H PO SCH (13:01)
[2019-01-31] MEDS ORDERED: ACETAMINOPHEN TAB 325 MG TAB PO PRN (15:15)
[2019-01-31 15:39] VITALS: BMI 30.2
[2019-01-31] MEDS ORDERED: ATORVASTATIN 80 MG TAB PO SCH (21:00)
[2019-02-01 06:34] VITALS: RESP 16
[2019-02-01 07:23] VITALS: BP 136/55; PULSE 67; TEMP 97.2
[2019-02-01 07:32] LABS: Basophils % (A) 1 %; Eosinophils # (A) 0.3 k/uL (0-0.7); Eosinophils % (A) 3 %; HCT 37.9 % (34.0-46.0); HGB 12.3 gm/dL (11.4-16.0); Lymphocytes # (A) 1.5 k/uL (1.0-4.8); Lymphocytes % (A) 19 %; MCH 30.9 pg (25.0-35.0); MCHC 32.5 g/dL (31.0-37.0); Mean Platelet Volume 7.6; Monocytes # (A) 0.4 k/uL (0-1.0); Monocytes % (A) 5 %; Neutrophils # (A) 5.4 k/uL (1.3-7.7); Neutrophils % (A) 70 %; Platelet Count 170 k/uL (150-450); RBC 3.99 m/uL (3.80-5.40); RDW 13.4 % (11.5-15.5); WBC 7.7 k/uL (3.8-10.6)
[2019-02-01 07:48] LABS: Calcium 9.1 mg/dL (8.4-10.2); Potassium 4.6 mmol/L (3.5-5.1)
[2019-02-01] MEDS ORDERED: ASPIRIN 81 MG PO SCH (09:00)
[2019-02-01] MEDS ORDERED: MELOXICAM 7.5 MG TAB PO SCH (09:00)
[2019-02-01] MEDS ORDERED: ATORVASTATIN 80 MG TAB PO SCH (09:00)
[2019-02-01] MEDS ORDERED: CLOPIDOGREL 75 MG TAB PO SCH (09:00)
[2019-02-01] MEDS: ESCITALOPRAM 10 MG TAB PO SCH (09:09)
[2019-02-01] MEDS: METOPROLOL SUCCINATE (ER) 25 MG TAB.ER.24H PO SCH (09:09)
[2019-02-01] MEDS: CHOLECALCIFEROL 1,000 UNIT TAB PO SCH (09:09)
[2019-02-01] MEDS: NITROFURANTOIN MONOHYD/M-CRYST 100 MG CAP PO SCH (09:13)
[2019-02-01] MEDS: CALCIUM CARB-VIT D 500MG-200UN 1 EACH TAB PO SCH (09:13)
--- NOTE | 2019-02-01 10:53 | DS ---
DISCHARGE SUMMARY ADMISSION DATE: 01/31/2019 DISCHARGE DATE: 02/01/2019 BRIEF HISTORY: This is a pleasant 73-year-old female patient who was admitted to the hospital yesterday and underwent successful stenting of OM2 of the circumflex from right radial approach. The procedure was completed without any complication and with good angiographic results. On follow up with her today, she is good and she is asymptomatic. She is going to be discharged home on dual anti-platelet therapy and I will follow up with the patient in the office. MMEDWINA / IJN: [id number] /
== END 2019-02-01 10:39 | disposition home or self-care (01) ==
LOC: CATHCVL 06:23 → 3SCARD 08:26 → CATHCVL 02-01 10:39
PROVIDERS: ATTEND Internal Medicine Interventional Cardiology
DX: I25.10 Atherosclerotic heart disease of native coronary artery without angina pectoris (principal); I10 Essential (primary) hypertension; Z79.02 Long term (current) use of antithrombotics/antiplatelets; Z79.1 Long term (current) use of non-steroidal anti-inflammatories (NSAID); Z88.1 Allergy status to other antibiotic agents; Z88.2 Allergy status to sulfonamides; Z82.49 Family history of ischemic heart disease and other diseases of the circulatory system; Z95.5 Presence of coronary angioplasty implant and graft; Z79.899 Other long term (current) drug therapy; Z72.0 Tobacco use
CPT/HCPCS: 94760; 80048; 85025; C9600; C1887; C1769; C1874; J2250; J0360; J2405; J2001; J0583; Q9967

== ENCOUNTER → 2019-03-28 | Outpatient (CLI) | payer MEDICARE ==
--- NOTE | 2019-03-28 11:49 | MM ---
Reason for exam: follow-up at short interval from prior study. Last mammogram was performed 7 months ago. History: Patient is postmenopausal, has history of breast cancer at age 62, and is nulliparous. Benign MG stereo VAD BX LT of the left breast, September 25, 2018. Mastectomy of the right breast, 2006. 3 excisional biopsies of the left breast. Took estrogen for 5 years. Took progesterone for 5 years. Taking antineoplastic for 4 years beginning at age 62. Physical Findings: Nurse did not find any significant physical abnormalities on exam. MG 3D Diag Mammo W/Cad LT CC, MLO, and XCCL view(s) were taken of the left breast. Prior study comparison: September 05, 2018, left breast MG 3d diag mammo w/cad LT. August 11, 2017, left breast MG diagnostic mammo LT w CAD. The breast tissue is heterogeneously dense. This may lower the sensitivity of mammography. Benign calcifications. Left biopsy marker. These results were verbally communicated with the patient and result sheet given to the patient on 03/28/19. ASSESSMENT: Benign, BI-RAD 2 RECOMMENDATION: Follow-up diagnostic mammogram of the left breast in 1 year.
== END | disposition home or self-care (01) ==
LOC: RADMAMWWP 10:51
PROVIDERS: ATTEND Family Medicine
DX: R92.8 Other abnormal and inconclusive findings on diagnostic imaging of breast (principal)
CPT/HCPCS: 77065; G0279; 77061

== ENCOUNTER → 2019-05-07 | Outpatient (CLI) | payer MEDICARE ==
--- NOTE | 2019-05-07 12:13 | CT ---
EXAMINATION TYPE: CT angio neck DATE OF EXAM: 05/07/2019 HISTORY: Occlusion and stenosis of unspecified carotid artery. COMPARISON: NONE CT DLP: 275.5 mGycm. Automated Exposure Control for Dose Reduction was Utilized. TECHNIQUE: CTA scan of the neck is performed with IV Contrast, patient injected with 50 mL of Isovue 370, axial images are obtained, coronal and sagittal reformatted images are reviewed. Three-D recons tructed images are created on an independent workstation and reviewed. FINDINGS: Carotid/Vascular Structures: Mild to moderate peripheral plaque is seen in the aortic arch . There is normal three-vessel origin from the arch without significant stenosis, mild peripheral plaque is not ed. Right common carotid artery shows normal origin from right brachiocephalic artery. There is moder ate anterior eccentric calcified plaque distal right common carotid artery extending into carotid bul b where there is more significant noncalcified plaque extending into the external carotid artery caus ing significant stenosis. More mild to moderate plaque extends into right internal carotid artery wit h stenosis approaching but measured under 50%. There is some tortuous course to the right internal ca rotid artery without significant plaque or stenosis distal to this. Left common carotid artery shows no significant plaque or stenosis to carotid bulb level where there is moderate anterior calcified plaque that shows more dense mixed but predominantly noncalcified plaq ue extending into proximal internal carotid artery causing significant stenosis. Luminal diameter is narrowed to 2.5 mm raw data image 453 and reconstitutes to 5.6 mm superior to this raw data image 476 . 3-D postprocessing cannot be performed due to IT issues ongoing at this time. There is significant stenosis in the left external carotid artery at its origin. Remainder of left internal carotid artery shows tortuous course with mild calcified plaque but no additional significant stenosis. There is dominant left vertebral artery. Vertebral arteries are patent to basilar junction. Other: Mild to moderate underlying emphysematous changes present. Mild multilevel spurring in the cervical spine with mild multilevel disc space narrowing IMPRESSION: Confirmation of significant stenosis left internal carotid artery estimated at 55%.
== END | disposition home or self-care (01) ==
LOC: RADCTMAIN 10:11
PROVIDERS: ATTEND Thoracic Surgery (Cardiothoracic Vascular Surgery)
DX: I65.22 Occlusion and stenosis of left carotid artery (principal)
CPT/HCPCS: 82565; 84520; 70498; 36415; Q9967

== ENCOUNTER → 2019-07-17 | Outpatient (CLI) | payer MEDICARE ==
[2019-07-17 12:41] LABS: Basophils # (A) 0.1 k/uL (0-0.2); Basophils % (A) 1 %; Eosinophils # (A) 0.2 k/uL (0-0.7); Eosinophils % (A) 3 %; HCT 39.6 % (34.0-46.0); HGB 13.2 gm/dL (11.4-16.0); Lymphocytes # (A) 1.6 k/uL (1.0-4.8); Lymphocytes % (A) 28 %; MCH 31.1 pg (25.0-35.0); MCHC 33.3 g/dL (31.0-37.0); MCV 93.3 fL (80.0-100.0); Monocytes # (A) 0.3 k/uL (0-1.0); Monocytes % (A) 6 %; Neutrophils # (A) 3.4 k/uL (1.3-7.7); Neutrophils % (A) 60 %; Platelet Count 197 k/uL (150-450); RBC 4.24 m/uL (3.80-5.40); RDW 13.7 % (11.5-15.5); WBC 5.6 k/uL (3.8-10.6)
[2019-07-17 12:58] LABS: Potassium 4.4 mmol/L (3.5-5.1)
== END | disposition home or self-care (01) ==
LOC: LABPAT 11:44
PROVIDERS: ATTEND Surgery
DX: Z01.812 Encounter for preprocedural laboratory examination (principal); I65.22 Occlusion and stenosis of left carotid artery
CPT/HCPCS: 80051; 82565; 84520; 85025

== ENCOUNTER 2019-07-25 08:24 | Inpatient (IN) | payer MEDICARE ==
[2019-07-19 09:30] VITALS: BMI 30.5
[~2019-07-25 08:24] MED LIST changes: -ALPRAZolam 0.25 MG TAB PO PRN; -ALPRAZolam 0.5 MG TAB PO PRN; -ASPIRIN 325 MG TAB PO STA; -ATORVASTATIN 80 MG TAB PO STA; +HYDROmorphone 0.5 MG/0.5 ML SYRINGE IVP PRN; +LACTATED RINGERS 1,000 ML IV SCH; +LIDOCAINE 1% 20 ML VIAL (10MG/ML) FOR IV START INTRADERMA PRN; -NITROGLYCERIN SL TABS 0.4 MG TAB SUBLINGUAL PRN; +ONDANSETRON 4 MG/2 ML VIAL IVP ONE; -SODIUM CHLORIDE 0.9% 1,000 ML in EMPTY BAG 1 BAG IV ONE
[2019-07-25] MEDS ORDERED: NITROGLYCERIN-D5W PMX 50 MG in DEXTROSE/WATER 1 250ML.BAG IV SCH (09:15)
[2019-07-25] MEDS ORDERED: ROCURONIUM BROMIDE 10 MG/ML 10 ML VIAL IV ONE (10:10)
[2019-07-25] MEDS ORDERED: LIDOCAINE 1% INJ 10MG/ML (20 ML MDV) ONE (10:10)
[2019-07-25] MEDS ORDERED: PROTAMINE SULFATE 10 MG/ML 5 ML VIAL IV ONE (10:10)
[2019-07-25] MEDS ORDERED: PHENYLEPHRINE-0.9% NACL SYG 1 MG/10 ML SYRINGE ONE (10:10)
[2019-07-25] MEDS ORDERED: fentaNYL (PF) 50 MCG/ML 2 ML AMP ONE (10:10)
[2019-07-25] MEDS ORDERED: PROPOFOL 10 MG/ML 20 ML VIAL IV ONE (10:10)
[2019-07-25] MEDS ORDERED: NITROGLYCERIN-D5W PMX 50 MG/250 ML BOTTLE IV ONE (10:10)
[2019-07-25] MEDS ORDERED: NEOSTIGMINE 1 MG/ML 10 ML VIAL ONE (10:10)
[2019-07-25] MEDS ORDERED: HEPARIN SODIUM,PORCINE 5,000 UNIT/ML 1 ML VIAL ONE (10:10)
[2019-07-25] MEDS ORDERED: GLYCOPYRROLATE 0.2 MG/ML 2 ML VIAL ONE (10:10)
[2019-07-25] MEDS ORDERED: GELATIN SPONGE,ABSORB (LARGE) 1 EACH SPONGE TOPICAL ONE ×2 (10:43→12:06)
[2019-07-25] MEDS ORDERED: LIDOCAINE 1% INJ 10MG/ML (20 ML MDV) SQ ONE ×2 (10:43→12:09)
[2019-07-25] MEDS ORDERED: THROMBIN (BOVINE) 5,000 UNIT VIAL TOPICAL ONE ×2 (10:43→12:06)
[2019-07-25] MEDS ORDERED: LACTATED RINGERS 1,000 ML IV ONE (11:36)
[2019-07-25] MEDS ORDERED: MEPERIDINE 50 MG/ML SYRINGE IVP ONE (12:46)
[2019-07-25] MEDS ORDERED: ACETAMINOPHEN TAB 325 MG TAB PO PRN (12:58)
[2019-07-25] MEDS ORDERED: MAG HYDROX/AL HYDROX/SIMETH 30 ML CUP PO PRN (12:58)
[2019-07-25] MEDS ORDERED: TRIMETHOBENZAMIDE 100 MG/ML 2 ML VIAL IM PRN (12:58)
[2019-07-25] MEDS ORDERED: HYDROcodone/APAP 5-325MG 1 EACH TAB PO PRN (12:58)
--- NOTE | 2019-07-25 13:10 | P.OP ---
Date of Procedure: 07/25/19 Description of Procedure: Date of Procedure: 07/25/2019 Preoperative Diagnosis: High-grade Left Internal carotid artery stenosis, asymptomatic Postoperative Diagnosis: Same Procedure(s) Performed: Left carotid endarterectomy with patch angioplasty Anesthesia: VALENTINE Surgeon: Holly Clark DO Estimated Blood Loss (ml): 30 mL IV Fluids: See anesthesia records Urine Output: See anesthesia records Specimen: Left carotid plaque Condition: stable Disposition: PACU Indications for Procedure: The patient is a 74-year-old female who has been undergoing routine surveillance of her bilateral carotid arteries and on recent evaluation had increased velocities with a ratio greater than 4. Imaging was performed and she was found to be a candidate for left carotid endarterectomy. Risks and benefits were discussed. She seemingly understood and was willing to proceed. At the time of the procedure there was an area of focal high-grade stenosis with significant soft plaquing noted. Normal anatomy otherwise Description of Procedure: After written informed consent was obtained the patient all risks benefits and competitions were described the patient is brought to the operative suite and laid in a supine position. The area of the neck was prepped and draped in usual sterile fashion after appropriate anesthetic was performed per the anesthesiologist. A timeout was performed in normal fashion antibiotics were administered prior to incision. An oblique incision was then created just anterior to the sternocleidomastoid musculature with a 10 blade scalpel and dissection was carried down to the carotid sheath. The carotid sheath was then entered after facial vein was located and suture ligated in normal fashion. The common carotid, internal carotid, external carotid and superior thyroid arteries were located and dissected free in a meticulous fashion circumferentially and controlled with ve ssel loops. Attention was then placed to locating the vagus nerve as well as hypoglossal nerve which were both spared. Once controlled patient was administered heparin and followed with ACTs for appropriate heparinization. Once ACT was above 200 the proximal and distal aspects of the dissection were then controlled with vascular clamps. Arteriotomy was then created with 11 blade scalpel and extended with Adames Singh scissors. Utilizing pressure tubing, stump pressures were obtained and were in the 90s. No shunt was required and endarterectomy was then performed with a [place] and elevator. The plaque was then feathered at the distal aspect and the internal carotid artery and removed. The area was copiously irrigated with heparinized saline and all free debris was removed. A 6-0 Prolene suture was then placed to tack the distal aspect of the dissection at the internal carotid artery. A 0.8 x 8 cm bovine pericardial patch was then chosen and patch angioplasty was performed with 6-0 Prolene suture in a running fashion. Prior to last sutures being placed the inflow was released flushing any free debris out of the patch. This was reclamped and the internal carotid artery was released revealing good brisk flow and was once again reclamped. The external carotid and superior thyroid artery were then released followed by the common carotid artery to allow any free debris to be flushed into the external system. Final sutures were placed and secured. Internal carotid artery control was then released. Good pulsatile flow was noted through the patch and a Doppler was utilized demonstrating good brisk flow into the internal, external carotid arteries without any signs of obstruction. Hemostasis was then assured with thrombin and Gelfoam. A 10- Sinhala TATIANA drain was then placed in normal fashion and secured with 3-0 nylon suture. The incision was then closed in a multilayer fashion after hemostasis was assured. The skin was then cleansed and dressings were placed. Patient tolerated the procedure well and was following commands and moving all extremities. Patient was then sent to PACU for recovery.
[2019-07-25 14:13] LABS: Glucose,Whole Blood 138 mg/dL (75-99)
[2019-07-25] MEDS: PHENYLEPHRINE 40 MG in SODIUM CHLORIDE 0.9% 250 ML IV ONE ×2 (14:16→21:46)
[2019-07-25] MEDS: LACTATED RINGERS 1,000 ML IV SCH ×2 (14:17→21:18)
[2019-07-25] MEDS: BENZOCAINE/MENTHOL LOZENG 1 EACH LOZENGE MUCOUS MEM PRN (14:20)
[2019-07-25] MEDS: CLOPIDOGREL 75 MG TAB PO SCH (15:41)
[2019-07-25] MEDS: HEPARIN SODIUM,PORCINE 5,000 UNIT/ML 1 ML VIAL SQ SCH (15:41)
--- NOTE | 2019-07-25 15:54 | P.CNPUL ---
History of Present Illness Consult date: 07/25/19 Requesting physician: Danny Pat Reason for consult: other (ICU management) Chief complaint: status post left carotid endarterectomy History of present illness: this is a 74-year-old female with history of multiple medical problems including coronary artery disease, history of stenting of the obtuse marginal 2 of the circumflex back in January of 2019 and this procedure was done by Dr. Chavez. Patient had history of carotid artery disease, and has been monitored for quite some time by her primary care physician. Recent workup showed worsening left carotid artery disease, and the patient underwent left carotid endarterectomy today. Postoperatively, the patient was admitted to the intensive care unit, and I was asked to see her on consultation. During my evaluation, the patient had no specific complaints, she had no headache no blurred vision no dizziness. Denies any shortness of breath no cough no wheezing. No nausea no vomiting no abdominal pain, no melena, no hematemesis, no dysuria and no frequency no urgency.her past medical history significant for hypertension, [id number] smoker quit over 25 years ago, strong family history of coronary artery disease.patient also had history of breast cancer and previous mastectomyand previous history of LAD disease requiring stenting. Review of Systems constitutional: Denies any fevers chills night sweats or weight loss. HEENT: Denies any headache blurred vision dizziness or diplopia. Pulmonary: Denies any cough wheezing or shortness of breath Cardiac: Denies any symptoms of angina, known to have history of coronary artery disease and previous stenting 2. GI: Denies any nausea vomiting abdominal pain melena or hematemesis, patient had previous history of EGD for evaluation of hiatal hernia and GERD. Genitourinary: Denies any dysuria frequency or urgency. Neurologic: Denies any headache blurred vision or dizziness. Hematologic: Denies any clotting bleeding or bruising Psychiatric: Denies any symptoms of active depression Endocrine: Denies any heat or cold intolerance. Musculoskeletal: Has chronic arthritis and chronic back pain. She had previous history of right knee arthroplasty. Past Medical History Past Medical History: Coronary Artery Disease (CAD), Cancer, Chest Pain / Angina, Fibromyalgia, GERD/Reflux, Hearing Disorder / Deafness, Hypertension, Osteoarthritis (OA) Additional Past Medical History / Comment(s): Hiatal hernia, hx right breast cancer 2006, hx UTI's, bilateral hearing aid use. History of Any Multi-Drug Resistant Organisms: None Reported Past Surgical History: Appendectomy, Breast Surgery, Cholecystectomy, Hernia Repair, Joint Replacement, Orthopedic Surgery Additional Past Surgical History / Comment(s): RODNEY FUNDOPLASTY. RIGHT MASTECTOMY. BILATERAL CATARACTS, right knee replacement, left rotator cuff repair, right hip replacement, PAIN CLINIC PROCEDURES. Past Anesthesia/Blood Transfusion Reactions: Previous Problems w/ Anesthesia, Motion Sickness Additional Past Anesthesia/Blood Transfusion Reaction / Comment(s): Had "terrible hallucinations" after knee surgery. "Takes longer to come out." Past Psychological History: Anxiety Smoking Status: Former smoker Past Alcohol Use History: None Reported Additional Past Alcohol Use History / Comment(s): Quit smoking 25-30 yrs ago. Smoked 1-2 PPD for 30 yrs. Past Drug Use History: None Reported - Past Family History Mother Family Medical History: No Reported History, Coronary Artery Disease (CAD) Additional Family Medical History / Comment(s): . Father Family Medical History: Myocardial Infarction ([place]) Medications and Allergies Home Medications Medication Instructions Recorded Confirmed Type Escitalopram [Lexapro] 10 mg PO DAILY 09/12/14 07/19/19 History Metoprolol Succinate [Toprol XL] 25 mg PO QAM 08/11/17 07/19/19 History Meloxicam [Mobic] 15 mg PO DAILY 01/03/18 07/25/19 History Aspirin 81 mg PO DAILY 11/15/18 07/25/19 History Calcium Carbonate/Vitamin D3 1 each PO DAILY 11/15/18 07/19/19 History [Calcium 500-Vit D3 200 Tablet] Cholecalciferol (Vitamin D3) 2,000 unit PO DAILY 11/15/18 07/25/19 History [Vitamin D3] Atorvastatin [Lipitor] 80 mg PO HS #30 tab 11/21/18 07/19/19 Rx Clopidogrel [Plavix] 75 mg PO DAILY #30 tab 11/21/18 07/25/19 Rx Nitroglycerin Sl Tabs [Nitrostat] 0.4 mg SUBLINGUAL Q5M PRN #25 tab 11/21/18 07/19/19 Rx Allergies Allergy/AdvReac Type Severity Reaction Status Date / Time adhesive tape Allergy Itching Verified 07/19/19 09:10 ciprofloxacin [From Cipro] Allergy Rash/Hives. Verified 07/19/19 09:10 HOT FLASHES. ciprofloxacin HCl Allergy Rash/Hives. Verified 07/19/19 09:10 [From Cipro] HOT FLASHES. Influenza Virus Vaccines Allergy redness/hot Verified 07/19/19 09:10 flashes Sulfa (Sulfonamide Allergy Rash/Hives. Verified 07/19/19 09:10 Antibiotics) HOT FLASHES, skin turns red Physical Exam Vitals: Vital Signs Temp Pulse Pulse Pulse Resp BP BP 07/25/19 15:00 64 13 07/25/19 14:45 70 16 07/25/19 14:30 79 10 L 07/25/19 14:15 98 F 68 71 15 106/69 07/25/19 13:30 71 18 132/42 07/25/19 13:15 69 18 132/42 07/25/19 13:00 74 18 144/44 07/25/19 12:39 98 F 96 12 154/74 07/25/19 08:56 97.8 F 64 16 197/88 Pulse Ox 07/25/19 15:00 95 07/25/19 14:45 94 L 07/25/19 14:30 94 L 07/25/19 14:15 95 07/25/19 13:30 94 L 07/25/19 13:15 95 07/25/19 13:00 96 07/25/19 12:39 97 07/25/19 08:56 96 Intake and Output 07/25/19 07/25/19 07/25/19 06:59 14:59 22:59 Intake Total 1550 325 Output Total 520 35 Balance 1030 290 Intake: IV 1550 75 Lactated Ringers 1,000 ml 75 @ 75 mls/hr IV .[id number] [facility] Rx#:[id number] Oral 250 Output: Urine 485 35 Estimated Blood Loss 35 Other: Voiding Method Indwelling Catheter ABP, PAP, CO, CI - Last 8 Hours Arterial Blood Pressure 139/40 Arterial Blood Pressure 135/44 Arterial Blood Pressure 125/50 Arterial Blood Pressure 124/42 Physical Exam: Revealed 74-year-old female in no distress. Head: Atraumatic normocephalic. HEENT:[Neck is supple.] [No neck masses.] [No thyromegaly.] [No JVD.]left carotid surgical incision noted, clean, drain is noted, Chest: [Clear throughout, no crackles, no rhonchi, no wheezes.]symmetrical chest expansion Cardiac Exam: [Normal S1 and S2, no S3 gallop, no murmur.] Abdomen: [Soft, nontender, no megaly, no rebound, no guarding, normal bowel sounds.] Extremities: [No clubbing, no edema, no cyanosis.] Neurological Exam: [No focal neurologic deficit.]alert and oriented 3. Psychiatric: Normal mood affect and normal mental status examination. Skin: No rashes. Lymphatics: No lymphadenopathy. Musculoskeletal good muscle tone and no limitation in range of motion, no deformities. Results - Laboratory Findings Abnormal lab findings: Abnormal Labs 07/25/19 14:01 POC Glucose (mg/dL) 138 H Assessment and Plan Assessment: impression: 1 status post elective left carotid endarterectomy, postoperative day #0. 2 history of coronary artery disease, presently asymptomatic and stable, previous stents of LAD and obtuse marginal 2office circumflex. 3 history of breast cancer and previous mastectomy 4 remote smoking history [id number] smoker, presently does not smoke, quit smoking over 25 years ago. 5 history of degenerative joint disease 6 history of fibromyalgia 7 history of hypertension 8 history of GERD 9 history of degenerative joint disease. 10 history of multiple surgeries including appendectomy meniscectomy cholecystectomy and the right knee arthroplasty. History of Rodney fundoplasty. Recommendation: Fully agree with the present treatment plan, patient will be monitored overnight in the ICU, resume back on her usual medications, will co ntinue to follow. Time with Patient: Greater than 30
[2019-07-26] MEDS: HEPARIN SODIUM,PORCINE 5,000 UNIT/ML 1 ML VIAL SQ SCH ×2 (00:27→08:16)
[2019-07-26 05:06] LABS: Basophils % (A) 0 %; Eosinophils # (A) 0.1 k/uL (0-0.7); Eosinophils % (A) 1 %; HCT 30.9 % (34.0-46.0); Lymphocytes # (A) 1.5 k/uL (1.0-4.8); Lymphocytes % (A) 26 %; MCH 31.7 pg (25.0-35.0); Mean Platelet Volume 7.2; Monocytes # (A) 0.3 k/uL (0-1.0); Monocytes % (A) 6 %; Neutrophils # (A) 3.8 k/uL (1.3-7.7); Neutrophils % (A) 65 %; Platelet Count 141 k/uL (150-450); RBC 3.22 m/uL (3.80-5.40); RDW 13.5 % (11.5-15.5); WBC 5.8 k/uL (3.8-10.6)
[2019-07-26 05:10] LABS: HGB 10.2 gm/dL (11.4-16.0)
[2019-07-26] MEDS: BENZOCAINE/MENTHOL LOZENG 1 EACH LOZENGE MUCOUS MEM PRN (05:25)
[2019-07-26] MEDS: LACTATED RINGERS 1,000 ML IV SCH (06:12)
[2019-07-26 06:17] LABS: African American GFR (CKD) >90 (>60 ml/min/1.73 sqM); Anion Gap 4 mmol/L; Blood Urea Nitrogen 15 mg/dL (7-17); Calcium 8.4 mg/dL (8.4-10.2); Carbon Dioxide 28 mmol/L (22-30); Chloride 108 mmol/L (98-107); Glucose 86 mg/dL (74-99); Potassium 4.1 mmol/L (3.5-5.1); Sodium 140 mmol/L (137-145)
[2019-07-26 08:16] VITALS: TEMP 98
[2019-07-26] MEDS: CLOPIDOGREL 75 MG TAB PO SCH (08:16)
--- NOTE | 2019-07-26 08:57 | P.DS ---
Providers Date of admission: 07/25/19 08:24 Attending physician: Holly Pan DO Consults: 07/25/19 13:01 Consult Physician Routine Consulting Provider: Michael Deluca Consult Reason/Comments: icu management Do you want consulting provider notified?: Yes Consult Physician Routine Consulting Provider: Bobby Dodge Reason/Comments: post op carotid endart Do you want consulting provider notified?: Yes Primary care physician: Bobby [facility] Course: Pt is a 74 y/o female who came in initially for a Left carotid endarterectomy for high grade stenosis. She underwent this on 07/25 and it was uneventful. She was monitored in the ICU overnight and did need some hemodynamic support. She is off any precious or nitro as of this morning. She has has minimal drain output. This is removed. She is tolertaing a diet. We will remove her a line and pan catheter. We will increase activity as tolerated. She will continue her home medications. Discharge instructions given, she seemingly understands. We will follow up with her in 2 weeks in the office. Her vital signs are stable and she is in satisfactory condition for discharge home Plan - Discharge Summary Discharge Rx Participant: No New Discharge Prescriptions: No Action Escitalopram [Lexapro] 10 mg PO DAILY Metoprolol Succinate [Toprol XL] 25 mg PO QAM Meloxicam [Mobic] 15 mg PO DAILY Aspirin 81 mg PO DAILY Cholecalciferol (Vitamin D3) [Vitamin D3] 2,000 unit PO DAILY Calcium Carbonate/Vitamin D3 [Calcium 500-Vit D3 200 Tablet] 1 each PO DAILY Atorvastatin [Lipitor] 80 mg PO HS #30 tab Clopidogrel [Plavix] 75 mg PO DAILY #30 tab Nitroglycerin Sl Tabs [Nitrostat] 0.4 mg SUBLINGUAL Q5M PRN #25 tab PRN Reason: Chest Pain Discharge Medication List Escitalopram [Lexapro] 10 mg PO DAILY 09/12/14 [History] Metoprolol Succinate [Toprol XL] 25 mg PO QAM 08/11/17 [History] Meloxicam [Mobic] 15 mg PO DAILY 01/03/18 [History] Aspirin 81 mg PO DAILY 11/15/18 [History] Calcium Carbonate/Vitamin D3 [Calcium 500-Vit D3 200 Tablet] 1 each PO DAILY 11/15/18 [History] Cholecalciferol (Vitamin D3) [Vitamin D3] 2,000 unit PO DAILY 11/15/18 [History] Atorvastatin [Lipitor] 80 mg PO HS #30 tab 11/21/18 [Rx] Clopidogrel [Plavix] 75 mg PO DAILY #30 tab 11/21/18 [Rx] Nitroglycerin Sl Tabs [Nitrostat] 0.4 mg SUBLINGUAL Q5M PRN #25 tab 11/21/18 [Rx] Activity/Diet/Wound Care/Special Instructions: May shower. Resume activity as tolerated. Resume previous diet. Resume home medications. She is already on plavix, aspirin and a high dose statin. Discharge Disposition: HOME SELF-CARE
[2019-07-26] MEDS ORDERED: NITROGLYCERIN SL TABS 0.4 MG TAB SUBLINGUAL PRN (09:12)
[2019-07-26] MEDS ORDERED: ESCITALOPRAM 10 MG TAB PO SCH (09:13)
[2019-07-26] MEDS ORDERED: METOPROLOL SUCCINATE (ER) 25 MG TAB.ER.24H PO SCH (09:14)
[2019-07-26] MEDS ORDERED: ASPIRIN 81 MG PO SCH (09:15)
--- NOTE | 2019-07-26 10:57 | XR ---
EXAMINATION TYPE: XR chest 1V portable DATE OF EXAM: 07/26/2019 COMPARISON: 07/23/2013 HISTORY: Shortness of breath TECHNIQUE: Single frontal view of the chest is obtained. FINDINGS: Subsegmental changes at both lung bases. Atherosclerotic change aorta. Heart size stable. IMPRESSION: Basilar atelectasis or early infiltrate correlate clinically.
--- NOTE | 2019-07-26 11:30 | P.PN ---
Subjective Progress Note Date: 07/26/19 Principal diagnosis: Status post left carotid endarterectomy postoperative day #1 this is a 74-year-old female with history of multiple medical problems including coronary artery disease, history of stenting of the obtuse marginal 2 of the circumflex back in January of 2019 and this procedure was done by Dr. Chavez. Patient had history of carotid artery disease, and has been monitored for quite some time by her primary care physician. Recent workup showed worsening left carotid artery disease, and the patient underwent left carotid endarterectomy today. Postoperatively, the patient was admitted to the intensive care unit, and I was asked to see her on consultation. During my evaluation, the patient had no specific complaints, she had no headache no blurred vision no dizziness. Denies any shortness of breath no cough no wheezing. No nausea no vomiting no abdominal pain, no melena, no hematemesis, no dysuria and no frequency no urgency.her past medical history significant for hypertension, [id number] smoker quit over 25 years ago, strong family history of coronary artery disease.patient also had history of breast cancer and previous mastectomyand previous history of LAD disease requiring stenting. Patient was reevaluated today on 07/26/2019, patient is doing great, no issues overnight, denies any cough no wheezing or shortness of breath. Chest x-ray this morning showed mostly basilar atelectasis, labs including CBC and basic metabolic profile are normal renal profile is normal. Patient is being evaluated by vascular surgery for discharge planning today. Objective - Vital Signs Vital signs: Vital Signs Temp 98 F 07/26/19 08:00 Pulse 63 07/26/19 09:00 Resp 18 07/26/19 09:00 BP 141/44 07/26/19 09:00 Pulse Ox 92 L 07/26/19 09:00 Intake & Output 07/25/19 07/26/19 07/26/19 18:59 06:59 18:59 Intake Total 2157.35 1380.51 610 Output Total 635 1195 290 Balance 1522.35 185.51 320 Weight 86.2 kg Intake: IV 1900 1370 360 Lactated Ringers 1,000 ml 300 1370 360 @ 120 mls/hr IV .Q8H20M [facility] Rx#:[id number] ceFAZolin 2 gm In Sodium 50 Chloride 0.9% 50 ml @ 100 mls/hr IVPB ONCE ONE Rx# :[id number] Intake, IV Titration 7.35 10.51 Amount Nitroglycerin-D5w Pmx 50 7.35 mg In Dextrose/Water 1 250ml.bag @ Titrate IV . Q0M [facility] Rx#:[id number] Phenylephrine 40 mg In 10.51 Sodium Chloride 0.9% 250 ml @ 0.5 MCG/KG/MIN 15. 381 mls/hr IV .[id number] [facility] Rx#:[id number] Oral 250 250 Output: Drainage 40 Left Neck 40 Urine 600 1155 290 Estimated Blood Loss 35 Other: Voiding Method Indwelling Catheter Indwelling Catheter ABP, PAP, CO, CI - Last Documented Arterial Blood Pressure 135/34 - Exam Physical Exam: Revealed a 74-year-old female in no distress. HEENT:[Neck is supple.] [No neck masses.] [No thyromegaly.] [No JVD.] Surgical wound is clean and dry. Chest: [Clear throughout, no crackles, no rhonchi, no wheezes.] Cardiac Exam: [Normal S1 and S2, no S3 gallop, no murmur.] Abdomen: [Soft, nontender, no megaly, no rebound, no guarding, normal bowel sounds.] Extremities: [No clubbing, no edema, no cyanosis.] Neurological Exam: [No focal neurologic deficit.] Psychiatric normal mood affect and normal mental status examination. Skin: No rashes. - Labs CBC & Chem 7: 07/26/19 04:40 07/26/19 05:50 Labs: Abnormal Lab Results - Last 24 Hours (Table) 07/25/19 07/26/19 07/26/19 Range/Units 14:01 04:40 05:50 RBC 3.22 L (3.80-5.40) m/uL Hgb 10.2 L D (11.4-16.0) gm/dL Hct 30.9 L (34.0-46.0) % Plt Count 141 L (150-450) k/uL Chloride 108 H (98-107) mmol/L POC Glucose (mg/dL) 138 H (75-99) mg/dL Assessment and Plan Assessment: impression: 1 status post elective left carotid endarterectomy, postoperative day #1 2 history of coronary artery disease, presently asymptomatic and stable, previous stents 3 history of breast cancer and previous mastectomy 4 remote smoking history [id number] smoker, presently does not smoke, quit smoking over 25 years ago. 5 history of degenerative joint disease 6 history of fibromyalgia 7 history of hypertension 8 history of GERD 9 history of degenerative joint disease. 10 history of multiple surgeries including appendectomy meniscectomy cholecystectomy and the right knee arthroplasty. History of Cindy fundoplasty. Recommendation: Agree with discharge planning, suggest incentive spirometry, follow-up with the primary care physician after discharge in few days or one week, will see on when necessary basis. Time with Patient: Less than 30
[2019-07-26] MEDS ORDERED: ATORVASTATIN 80 MG TAB PO ONE (12:30)
[2019-07-26 12:38] VITALS: BP 137/65; RESP 16
[2019-07-26 13:07] VITALS: PULSE 65
[2019-07-26] MEDS ORDERED: ATORVASTATIN 80 MG TAB PO SCH (21:00)
--- NOTE | 2019-07-26 22:19 | P.CONS ---
History of Present Illness - Reason for Consult Consult date: 07/26/19 - History of Present Illness this is a pleasant 74-year-old white female who was asked to consult and participate in the intensive care unit. Patient is currently stable however has undergone a left carotid endarterectomy. She has known coronary artery disease and cardiovascular disease was found to have a left carotid occlusion and underwen she is doing well with no significant incident. Review of Systems GENERAL: Patient denies fever. Denies chills. EYES: Denies blurred vision. Denies vision changes. Denies eye pain. EARS, NOSE, MOUTH, & THROAT: Denies headache. Denies sore throat. Denies ear pain. RESPIRATORY: Denies cough. Denies shortness of breath. Denies sputum production. Denies hemoptysis. CARDIOVASCULAR: Denies chest pain or pressure. Denies palpitations. Denies arrhythmias. GASTROINTESTINAL: Denies abdominal pain. Denies diarrhea. Denies constipation. Denies nausea. Denies vomiting. Denies heartburn. Denies blood in the stool. GENITOURINARY: Denies urinary frequency. Denies burning. Denies dysuria. Denies cloudy urine. Denies blood in the urine. MUSCULOSKELETAL: Denies myalgias. Denies joint swelling. Denies decreased range of motion beyond patients baseline. INTEGUMENTARY: Denies pruitis. Denies rash. PSYCHIATRIC: Denies suicidal or homicial ideations. ENDOCRINE: Denies weight change. Denies polydipsia. Denies polyuria. HEMATOLOGIC: Denies bleeding disorders. Past Medical History Past Medical History: Coronary Artery Disease (CAD), Cancer, Chest Pain / Angina, Fibromyalgia, GERD/Reflux, Hearing Disorder / Deafness, Hypertension, Osteoarthritis (OA) Additional Past Medical History / Comment(s): Hiatal hernia, hx right breast cancer 2006, hx UTI's, bilateral hearing aid use. History of Any Multi-Drug Resistant Organisms: None Reported Past Surgical History: Appendectomy, Breast Surgery, Cholecystectomy, Hernia Repair, Joint Replacement, Orthopedic Surgery Additional Past Surgical History / Comment(s): RODNEY FUNDOPLASTY. RIGHT MASTECTOMY. BILATERAL CATARACTS, right knee replacement, left rotator cuff repair, right hip replacement, PAIN CLINIC PROCEDURES. Past Anesthesia/Blood Transfusion Reactions: Previous Problems w/ Anesthesia, Motion Sickness Additional Past Anesthesia/Blood Transfusion Reaction / Comm: Had "terrible chapa ucinations" after knee surgery. "Takes longer to come out." Past Psychological History: Anxiety Smoking Status: Former smoker Past Alcohol Use History: None Reported Additional Past Alcohol Use History / Comment(s): Quit smoking 25-30 yrs ago. Smoked 1-2 PPD for 30 yrs. Past Drug Use History: None Reported - Past Family History Mother Family Medical History: No Reported History, Coronary Artery Disease (CAD) Additional Family Medical History / Comment(s): . Father Family Medical History: Myocardial Infarction ([place]) Medications and Allergies Home Medications Medication Instructions Recorded Confirmed Type Escitalopram [Lexapro] 10 mg PO DAILY 09/12/14 07/19/19 History Metoprolol Succinate [Toprol XL] 25 mg PO QAM 08/11/17 07/19/19 History Meloxicam [Mobic] 15 mg PO DAILY 01/03/18 07/25/19 History Aspirin 81 mg PO DAILY 11/15/18 07/25/19 History Calcium Carbonate/Vitamin D3 1 each PO DAILY 11/15/18 07/19/19 History [Calcium 500-Vit D3 200 Tablet] Cholecalciferol (Vitamin D3) 2,000 unit PO DAILY 11/15/18 07/25/19 History [Vitamin D3] Atorvastatin [Lipitor] 80 mg PO HS #30 tab 11/21/18 07/19/19 Rx Clopidogrel [Plavix] 75 mg PO DAILY #30 tab 11/21/18 07/25/19 Rx Nitroglycerin Sl Tabs [Nitrostat] 0.4 mg SUBLINGUAL Q5M PRN #25 tab 11/21/18 07/19/19 Rx Allergies Allergy/AdvReac Type Severity Reaction Status Date / Time adhesive tape Allergy Itching Verified 07/19/19 09:10 ciprofloxacin [From Cipro] Allergy Rash/Hives. Verified 07/19/19 09:10 HOT FLASHES. ciprofloxacin HCl Allergy Rash/Hives. Verified 07/19/19 09:10 [From Cipro] HOT FLASHES. Influenza Virus Vaccines Allergy redness/hot Verified 07/19/19 09:10 flashes Sulfa (Sulfonamide Allergy Rash/Hives. Verified 07/19/19 09:10 Antibiotics) HOT FLASHES, skin turns red Physical Exam Osteopathic Statement: *. No significant issues noted on an osteopathic structural exam other than those noted in the History and Physical/Consult. Vitals: Vital Signs Temp Pulse Pulse Resp BP BP Pulse Ox 07/26/19 12:00 98 F 60 16 137/65 94 L 07/26/19 11:00 61 14 90 L 07/26/19 10:00 67 15 129/59 90 L 07/26/19 09:00 63 18 141/44 92 L 07/26/19 08:00 98 F 69 92 L 07/26/19 07:00 87 94 L 07/26/19 06:00 61 14 96 07/26/19 05:00 84 17 94 L 07/26/19 04:00 98.1 F 58 L 65 12 96 07/26/19 03:00 62 13 96 07/26/19 02:00 62 12 95 07/26/19 01:00 61 15 96 07/26/19 00:38 96 07/26/19 00:02 62 14 96 07/26/19 00:00 98.2 F 62 63 16 95 07/25/19 23:00 63 14 95 07/25/19 22:00 60 16 97 07/25/19 21:00 61 15 96 07/25/19 20:00 98.3 F 65 64 14 94 L 07/25/19 19:00 67 14 95 07/25/19 18:00 67 71 10 L 95 07/25/19 17:00 69 16 93 L 07/25/19 16:45 74 13 95 07/25/19 16:30 72 15 94 L 07/25/19 16:15 62 12 95 07/25/19 16:00 97.9 F 64 13 94 L 07/25/19 15:45 70 17 95 07/25/19 15:30 15 95 07/25/19 15:15 66 15 106/69 96 07/25/19 15:00 64 13 95 07/25/19 14:45 70 16 94 L 07/25/19 14:30 79 10 L 94 L 07/25/19 14:15 98 F 68 71 15 106/69 95 07/25/19 13:30 71 18 132/42 94 L 07/25/19 13:15 69 18 132/42 95 Intake and Output 07/25/19 07/26/19 07/26/19 22:59 06:59 14:59 Intake Total 1025.36 960 860 Output Total 555 755 290 Balance 470.36 205 570 Intake: IV 760 960 410 Lactated Ringers 1,000 ml 710 960 360 @ 120 mls/hr IV .Q8H20M [facility] Rx#:[id number] ceFAZolin 2 gm In Sodium 50 Chloride 0.9% 50 ml @ 100 mls/hr IVPB ONCE ONE Rx# :[id number] ceFAZolin 2 gm In Sodium 50 Chloride 0.9% 50 ml @ 100 mls/hr IVPB Q8H [facility] Rx#: [id number] Intake, IV Titration 15.36 Amount Nitroglycerin-D5w Pmx 50 4.85 mg In Dextrose/Water 1 250ml.bag @ Titrate IV . Q0M [facility] Rx#:[id number] Phenylephrine 40 mg In 10.51 Sodium Chloride 0.9% 250 ml @ 0.5 MCG/KG/MIN 15. 381 mls/hr IV .[id number] [facility] Rx#:[id number] Oral 250 450 Output: Drainage 20 20 Left Neck 20 20 Urine 535 735 290 Other: Voiding Method Indwelling Catheter Indwelling Catheter Weight 86.2 kg ABP, PAP, CO, CI - Last 8 Hours Arterial Blood Pressure 135/34 Arterial Blood Pressure 149/41 Arterial Blood Pressure 153/41 GENERAL: This is a -74 year-old in no apparent distress at the time of examination. Pleasant and cooperative. HEENT: Head is atraumatic, normocephalic. Pupils are equal, round, and reactive to light. Sclerae anicteric. Conjunctivae are clear. Mucus membranes of the mouth are moist. Neck is supple with left carotid endarterectomy scar with drain and Abd pad in place. RESPIRATORY: Clear to auscultation. No wheezes, rales, or rhonchi. No use of a ccessory muscles. Patient maintaining oxygen saturation greater than 92%. No chest wall tenderness is noted on palpation or with deep breathing. CARDIOVASCULAR: Regular rate and rhythm. S1 and S2 noted. No systolic or diastolic murmur auscultated. No JVD noted. No S3 or S4 noted. GASTROINTESTINAL: No distention noted. Abdomen soft and round. Normal active bowel sounds auscultated x 4 quadrants. No pain or tenderness noted upon palpation. INTEGUMENTARY: No cyanosis. No jaundice. No rashes noted. No cellulitis noted. EXTREMITIES: 2+ peripheral pulses. No evidence of peripheral edema. No calf tenderness noted. NEUROLOGIC: Cranial nerves II-XII intact. PSYCHIATRIC: Awake, alert, and oriented X 3. Appropriate affect. Intact judgement and insight. Results CBC & Chem 7: 07/26/19 04:40 07/26/19 05:50 Labs: Abnormal Lab Results - Last 24 Hours (Table) 07/25/19 07/26/19 07/26/19 Range/Units 14:01 04:40 05:50 RBC 3.22 L (3.80-5.40) m/uL Hgb 10.2 L D (11.4-16.0) gm/dL Hct 30.9 L (34.0-46.0) % Plt Count 141 L (150-450) k/uL Chloride 108 H (98-107) mmol/L POC Glucose (mg/dL) 138 H (75-99) mg/dL Assessment and Plan (1) Cardiovascular disease with arteriosclerosis Status: Acute Code(s): I25.10 - ATHSCL HEART DISEASE OF [place] CORONARY ARTERY W/O ANG PCTRS SNOMED Code(s): 22091001 (2) Carotid stenosis, left Status: Acute Code(s): I65.22 - OCCLUSION AND STENOSIS OF LEFT CAROTID ARTERY SNOMED Code(s): 876007460624435 (3) Osteoarthritis of right hip Status: Acute Code(s): M16.11 - UNILATERAL PRIMARY OSTEOARTHRITIS, RIGHT HIP SNOMED Code(s): 910447225597586 Plan: patient is doing well postoperatively.she is stable and probably be transferred to the floor later on today or possibly home. She is to continue her home medications postsurgical recommendationsand follow-up in the office 1-2 weeks at discharge. Thank you for allowing me to participate in this patient's care thank you very for the assistance please do not hesitate to contact me
[2019-07-27] MEDS ORDERED: CALCIUM CARB-VIT D 500MG-200UN 1 EACH TAB PO SCH (09:00)
[2019-07-27] MEDS ORDERED: CHOLECALCIFEROL 1,000 UNIT TAB PO SCH (09:00)
[2019-07-27] MEDS ORDERED: CLOPIDOGREL 75 MG TAB PO SCH (09:00)
[2019-07-27] MEDS ORDERED: MELOXICAM 7.5 MG TAB PO SCH (09:00)
== END 2019-07-26 13:54 | disposition home or self-care (01) | DRG 39 ==
LOC: 2ORMAIN 08:24 → 2SICU 13:37
PROVIDERS: ADMIT Surgery; ATTEND Surgery
PROC: 03UL0KZ Supplement Left Internal Carotid Artery with Nonautologous Tissue Substitute, Open Approach (ICD-10-PCS; 2019-07-25)
PROC: 03CL0ZZ Extirpation of Matter from Left Internal Carotid Artery, Open Approach (ICD-10-PCS; principal; 2019-07-25 10:00)
DX: I65.22 Occlusion and stenosis of left carotid artery (principal); H91.90 Unspecified hearing loss, unspecified ear; I10 Essential (primary) hypertension; I25.10 Atherosclerotic heart disease of native coronary artery without angina pectoris; K21.9 Gastro-esophageal reflux disease without esophagitis; M16.11 Unilateral primary osteoarthritis, right hip; M79.7 Fibromyalgia; Z79.02 Long term (current) use of antithrombotics/antiplatelets; Z79.1 Long term (current) use of non-steroidal anti-inflammatories (NSAID); Z79.82 Long term (current) use of aspirin; Z79.899 Other long term (current) drug therapy; Z82.49 Family history of ischemic heart disease and other diseases of the circulatory system; Z85.3 Personal history of malignant neoplasm of breast; Z87.440 Personal history of urinary (tract) infections; Z87.891 Personal history of nicotine dependence; Z90.11 Acquired absence of right breast and nipple; Z96.641 Presence of right artificial hip joint; Z96.651 Presence of right artificial knee joint; Z97.4 Presence of external hearing-aid; Z98.42 Cataract extraction status, left eye; Z98.41 Cataract extraction status, right eye; Z90.49 Acquired absence of other specified parts of digestive tract; G89.29 Other chronic pain; M54.9 Dorsalgia, unspecified; K44.9 Diaphragmatic hernia without obstruction or gangrene; Z95.5 Presence of coronary angioplasty implant and graft; Z88.1 Allergy status to other antibiotic agents; Z88.2 Allergy status to sulfonamides; Z88.7 Allergy status to serum and vaccine
CPT/HCPCS: 36415; 71045; 80048; 85025; 86850; 86900; 86901; 88304; 88311

== ENCOUNTER → 2019-12-12 | Outpatient (CLI) | payer MEDICARE ==
[2019-12-12 11:10] VITALS: BP 149/74; PULSE 73; RESP 18
--- NOTE | 2019-12-16 14:41 | P.PAINPG ---
Subjective Progress Note Date: 12/12/19 This is a 74-year-old female with history of lumbar degenerative disc disease, lumbar spinal stenosis, fibromyalgia. She was last seen in our clinic in April 2018, at which point she underwent lumbar epidural steroid injections at L4-5 2. She was then lost to follow-up. Today, she returns to clinic, her chief complaint is bilateral low back pain, radiating to bilateral groin and anterior thigh, rated as 8/10. She reports that she had 2 and 4 months of good relief from prior epidurals. Of note, she has undergone carotid endarterectomy approximately 5 months ago, and is on Plavix, which cannot be stopped until January 2020. She is interested in noninterventional pain management at this point. Of note, she is not doing any home exercises. She has also undergone right hip replacement in the past. Her current medications for pain include meloxicam. Review of systems is negative for shortness of breath, new onset weakness, numbness/tingling, abdominal pain, malaise, fever, night sweats, chills, homicidal or suicidal ideation, or bowel or bladder incontinence. She doesn't endorse chronic chest tightness with exertion. Objective Physical exam: Vitals: Reviewed in EMR GENERAL: Well appearing, in no acute distress PSYCH: Mood and affect is appropriate. Awake, alert, and oriented SKIN: Skin color, texture, turgor normal, no rashes or lesions HEENT: Normocephalic, atraumatic. EOM intact CV: No pedal edema RESP: Respirations are unlabored, no audible wheezing GI: Abdomen non-distended MUSCULOSKELETAL: Bilateral lower extremity strength is normal and symmetric. No atrophy or tone abnormalities are noted. Lumbar spine: Straight leg raising in the sitting position is positive bilaterally for radicular pain. Tenderness to palpation over the lumbar spine and paraspinous muscles bilaterally. Positive for pain with facet loading and back extension/rotation bilaterally. Buttocks: No pain to palpation over the PSIS, sacroiliac joint maneuvers are negative for pain. FADIR test is positive bilaterally, mildly decreased range of motion of right hip Extremities: No edema or skin discolorations noted. NEUR: Bilateral lower extremity coordination and muscle stretch reflexes are physiologic and symmetric. Negative clonus bilaterally. No loss of sensation is noted. Imaging: MRI lumbar spine from November 2017 shows moderate central canal stenosis at L4-5. Assessment and Plan Plan: This is a pleasant 73-year-old lady with history of lower back pain, diagnosed with lumbar stenosis, with good results from prior lumbar epidural steroid injections, last done in 2017. Unfortunately, she is unable to stop Plavix until January 2020, and would like to delay any further procedures until that time. Did discuss lumbar facet injections as well as hip injections, for which she would not have to stop the Plavix, however at this point, she is interested in non-interventional pain management. I encouraged water aerobics, weight loss and provided prescription for physical therapy. Follow-up: When necessary for lumbar epidural steroid injection at L4-5, as she has had good benefit from this in the past. Procedure will have to be delayed until after January 2020 due to patient being on Plavix from carotid endarter ectomy. PQRS Measure Charge Sheet Measure #130: Documentation of Current Meds in Medical Chart: Patient's medications documented in chart Measure #226: Tobacco Use: Screen & Cessation Intervention: Pt not a tobacco user Measure #111: Pneumonia Vaccination: Pneumococcal vaccine administered or previously received Measure #47: Advance Care Plan: Advance care planning discussed & documented, pt chose/unable to give Measure #412: Opioid Treatment Agreement: No documentation of signed opioid treatment agreement Measure #408: Opioid Therapy Follow-up Evaluation: Patient had NO f/u eval minimum every 3 months during opioid therapy Measure #317: Preventitive Care & Scrn High Bld Press & F/U: Pre-hypertensive or hypertensive BP documented, pt will f/u with PCP Measure #128: Body Mass Index (BMI) Screening & Follow-up: BMI documented ABOVE normal parameters - f/u documented Measure #131: Pain Assessment & Follow-up: Pain positive & plan documented, Follow-up scheduled Measure #431: Unhealthy Alcohol Use Preventative Care & Scrn: Patient not identified as an unhealthy alcohol user PQRS Narrative: Smoking Status Former smoker Pain Intensity [Right Knee] 4 Pain Intensity [Back] 8 Scale Used Numeric (1 - 10) Hx Alcohol Use (MH) No Home Medications: Ambulatory Orders Escitalopram [Lexapro] 10 mg PO DAILY 09/12/14 Metoprolol Succinate [Toprol XL] 25 mg PO QAM 08/11/17 Meloxicam [Mobic] 15 mg PO DAILY 01/03/18 Aspirin 81 mg PO DAILY 11/15/18 Calcium Carbonate/Vitamin D3 [Calcium 500-Vit D3 200 Tablet] 1 each PO DAILY 11/15/18 Cholecalciferol (Vitamin D3) [Vitamin D3] 2,000 unit PO DAILY 11/15/18 Atorvastatin [Lipitor] 80 mg PO HS #30 tab 11/21/18 Clopidogrel [Plavix] 75 mg PO DAILY #30 tab 11/21/18 Nitroglycerin Sl Tabs [Nitrostat] 0.4 mg SUBLINGUAL Q5M PRN #25 tab 11/21/18 Controlled Substance Measures - Controlled Substance Measures Is patient prescribed a controlled substance at discharge?: No
== END | disposition home or self-care (01) ==
LOC: PNWHC3 10:50
PROVIDERS: ATTEND Anesthesiology
DX: M48.061 Spinal stenosis, lumbar region without neurogenic claudication (principal); Z87.891 Personal history of nicotine dependence; Z79.899 Other long term (current) drug therapy; Z79.1 Long term (current) use of non-steroidal anti-inflammatories (NSAID); Z79.82 Long term (current) use of aspirin; Z79.02 Long term (current) use of antithrombotics/antiplatelets
CPT/HCPCS: 99211

== ENCOUNTER → 2020-01-01 | Outpatient (CLI) | payer MEDICARE ==
[2020-01-01 13:25] LABS: HGB 12.5 gm/dL (11.4-16.0); MCH 30.3 pg (25.0-35.0); MCHC 32.1 g/dL (31.0-37.0); MCV 94.6 fL (80.0-100.0); Mean Platelet Volume 8.9; Platelet Count 196 k/uL (150-450); RBC 4.13 m/uL (3.80-5.40); RDW 13.5 % (11.5-15.5); WBC 7.4 k/uL (3.8-10.6)
[2020-01-01 14:14] LABS: African American GFR (CKD) >90 (>60 ml/min/1.73 sqM); Anion Gap 10 mmol/L; Blood Urea Nitrogen 17 mg/dL (7-17); Carbon Dioxide 24 mmol/L (22-30); Chloride 104 mmol/L (98-107); Non-African American GFR(CKD) 86 (>60 ml/min/1.73 sqM); Potassium 4.4 mmol/L (3.5-5.1); Sodium 138 mmol/L (137-145)
== END | disposition home or self-care (01) ==
LOC: LABPAT 11:59
PROVIDERS: ATTEND Internal Medicine Interventional Cardiology
DX: Z01.818 Encounter for other preprocedural examination (principal); I25.10 Atherosclerotic heart disease of native coronary artery without angina pectoris
CPT/HCPCS: 80051; 82565; 84520; 85027

== ENCOUNTER 2020-01-09 06:20 | Day surgery (SDC) | payer MEDICARE ==
[2020-01-08 11:32] VITALS: BMI 30.5
[2020-01-09] MEDS ORDERED: NITROGLYCERIN SL TABS 0.4 MG TAB SUBLINGUAL PRN ×3 (06:30→09:14)
[2020-01-09] MEDS ORDERED: SODIUM CHLORIDE 0.9% 1,000 ML in EMPTY BAG 1 BAG IV ONE (06:30)
[2020-01-09] MEDS ORDERED: ALPRAZolam 0.5 MG TAB PO PRN (06:30)
[2020-01-09] MEDS ORDERED: ALPRAZolam 0.25 MG TAB PO PRN (06:30)
[2020-01-09] MEDS ORDERED: hydrALAZINE HCL 20 MG/ML 1 ML VIAL IVP STA (06:30)
[2020-01-09] MEDS ORDERED: HYDROmorphone 0.5 MG/0.5 ML SYRINGE IVP STA (06:30)
[2020-01-09] MEDS ORDERED: ATORVASTATIN 80 MG TAB PO ONE (07:00)
[2020-01-09] MEDS ORDERED: ASPIRIN 325 MG TAB PO ONE (07:00)
[2020-01-09] MEDS ORDERED: HEPARIN SODIUM 1,000 UN/ML (10ML VL) ONE (07:40)
[2020-01-09] MEDS ORDERED: VERAPAMIL 2.5 MG/ML 2 ML AMP ONE (07:40)
[2020-01-09] MEDS ORDERED: LIDOCAINE 1% INJ 10MG/ML (20 ML MDV) ONE (07:40)
[2020-01-09] MEDS ORDERED: MIDAZOLAM 2 MG/2 ML VIAL IVP ONE (08:13)
[2020-01-09] MEDS ORDERED: LIDOCAINE 1% INJ 10MG/ML (20 ML MDV) SQ ONE (08:23)
[2020-01-09] MEDS ORDERED: VERAPAMIL SYRINGE (5 MG/10 ML) INTRAARTER ONE (08:24)
[2020-01-09] MEDS: HEPARIN SODIUM 1,000 UN/ML (10ML VL) IV ONE ×2 (08:25→08:41)
[2020-01-09] MEDS ORDERED: MIDAZOLAM 2 MG/2 ML VIAL IV ONE (08:41)
[2020-01-09] MEDS: NITROGLYCERIN 1000MCG/10ML SYRINGE INTRACORON ONE ×2 (08:50→08:57)
[2020-01-09] MEDS ORDERED: IOPAMIDOL-370 125ML BTL INJ ONE (09:00)
[2020-01-09] MEDS ORDERED: CLOPIDOGREL 75 MG TAB PO ONE (09:00)
[2020-01-09] MEDS ORDERED: CLOPIDOGREL 75 MG TAB ONE (09:01)
[2020-01-09] MEDS ORDERED: ZOLPIDEM 5 MG TAB PO PRN (09:14)
[2020-01-09] MEDS ORDERED: RX INFO: IV CONTRAST WAS GIVEN 1 EACH MISC MISCELLANE PRN (09:14)
[2020-01-09] MEDS ORDERED: ATROPINE SULFATE 0.1 MG/ML 10ML SYRINGE IV PRN (09:14)
[2020-01-09] MEDS ORDERED: MAG HYDROX/AL HYDROX/SIMETH 30 ML CUP PO PRN (09:14)
[2020-01-09] MEDS ORDERED: SODIUM CHLORIDE 0.9% 1,000 ML IV SCH (09:15)
--- NOTE | 2020-01-09 09:25 | P.PCN ---
Date of Procedure: 01/09/20 Operative Findings: HEART CATHETERIZATION AND PERCUTANEOUS CORONARY INTERVENTION Performing physician Jorgito Gonsalez MD Procedure performed 1. Selective right and left coronary angiogram 2. Left heart catheterization 3. Successful stenting of OM 2 of the LCx using 2.5 x 8 mm Xience CONCEPCIÓN with an excellent angiographic results Indication This is a 74-year-old female patient with CAD and prior stenting of the LCx and LAD was experiencing symptoms of chest discomfort with exertion concerning for angina. Because of that a heart catheterization was possible PCI was advised Approach Right radial artery Complications None Level of sedation Moderate sedation and 41 minutes Procedure description After obtaining an informed consent the patient was brought to the cardiac slab worker Right radial artery was cannulated using micropuncture technique, the micropuncture wire passed easily then I placed a 6-Malian sheath at the right radial artery. After that I give the patient 2 mg of verapamil IV a and 10,000 use of heparin IV. After that I did selective right and left coronary angiogram using a JR4 and JL 3.5 catheters. Left heart catheterization was performed using 5-Malian pigtail catheter. After that I did intervene on the LCx Selective coronary angiogram The RCA: is a large caliber vessel. It is a nondominant vessel. Its angiographically normal The LM: is a large caliber vessel, short and appears to be angiographically normal The LCx: Is a large caliber vessel and its a dominant vessel. The proximal LCx has intermediate lesion appears to be in the range of 50%. The mid LCx appeared to be angiographically normal and gives rises into OM 2 which is a stented from before and just proximal to the stent there is a lesion appeared to be in the range of 90%. The left circumflex distally appears to be angiographically normal The LAD: Is a large caliber vessel. The proximal LAD appears to have intermediate lesion only. The lesion appeared to be in the range of 50%. The mid LAD the stented and the stent is patent. The LAD distally appears to be angiographically normal. The LAD gives rises into multiple small diagonal branches there appeared to be angiographically normal. Hemodynamics The LVEDP was 10 mmHg without significant gradient across aortic valve PCI of the LCx Anticoagulation was achieved with heparin with ACT monitoring throughout the procedure. In the beginning the patient was given 10,000 as of heparin and throughout the procedure she was given 3000 as of heparin. I did engage the left main using a JL 3.5 which short period. I did wire the left circumflex using a run-through wire and I did wire OM 2 using a whisper wire. After that I did PTCA ballooning of OM to using 20 by 12 mm balloon before I deployed 2.5 x 8 mm Xience CONCEPCIÓN where the stent was positioned under fluoroscopy guidance and the stent was deployed under 16 steven for 20 seconds. The following angiogram showed good angiographic results and the procedure was completed without any complication Conclusion 1. Medium size nondominant the right coronary artery appeared to be angiographically normal 2. Normal left main coronary artery 3. Intermediate disease involving the proximal LCx. Critical disease involving OM 2 of the LCx. I did successful stenting of OM 2. 4. Intermediate disease involving the proximal LAD. Patent stent in the mid LAD. Postprocedure management 1. Dual antiplatelet therapy 2. Risk factors modifications 3. Follow-up with the patient
[2020-01-09] MEDS ORDERED: ATORVASTATIN 80 MG TAB PO SCH (21:00)
[2020-01-09 23:29] VITALS: RESP 16
[2020-01-10 06:46] LABS: Basophils % (A) 0 %; Eosinophils # (A) 0.2 k/uL (0-0.7); Eosinophils % (A) 3 %; HCT 38.2 % (34.0-46.0); HGB 12.2 gm/dL (11.4-16.0); Lymphocytes # (A) 1.5 k/uL (1.0-4.8); Lymphocytes % (A) 25 %; MCH 30.2 pg (25.0-35.0); MCV 94.3 fL (80.0-100.0); Mean Platelet Volume 8.9; Monocytes # (A) 0.4 k/uL (0-1.0); Monocytes % (A) 6 %; Neutrophils # (A) 3.8 k/uL (1.3-7.7); Neutrophils % (A) 63 %; Platelet Count 174 k/uL (150-450); RBC 4.05 m/uL (3.80-5.40); RDW 13.5 % (11.5-15.5); WBC 5.9 k/uL (3.8-10.6)
[2020-01-10 06:59] LABS: African American GFR (CKD) >90 (>60 ml/min/1.73 sqM); Anion Gap 4 mmol/L; Blood Urea Nitrogen 15 mg/dL (7-17); Calcium 8.7 mg/dL (8.4-10.2); Carbon Dioxide 29 mmol/L (22-30); Chloride 108 mmol/L (98-107); Glucose 97 mg/dL (74-99); Non-African American GFR(CKD) 81 (>60 ml/min/1.73 sqM); Potassium 4.5 mmol/L (3.5-5.1); Sodium 141 mmol/L (137-145)
[2020-01-10 08:07] VITALS: BP 147/71; PULSE 71; TEMP 98.1
[2020-01-10] MEDS ORDERED: ISOSORBIDE MONONITRATE ER 30 MG TAB.ER.24H PO SCH (09:00)
[2020-01-10] MEDS ORDERED: MELOXICAM 7.5 MG TAB PO SCH (09:00)
[2020-01-10] MEDS ORDERED: CHOLECALCIFEROL 1,000 UNIT TAB PO SCH (09:00)
[2020-01-10] MEDS ORDERED: CALCIUM CARB-VIT D 500MG-200UN 1 EACH TAB PO SCH (09:00)
[2020-01-10] MEDS ORDERED: ESCITALOPRAM 10 MG TAB PO SCH (09:00)
[2020-01-10] MEDS ORDERED: ASPIRIN 81 MG PO SCH (09:00)
[2020-01-10] MEDS ORDERED: CLOPIDOGREL 75 MG TAB PO SCH (09:00)
[2020-01-10] MEDS ORDERED: METOPROLOL SUCCINATE (ER) 25 MG TAB.ER.24H PO SCH (09:00)
--- NOTE | 2020-01-10 10:10 | P.DS ---
Providers Date of admission: January 08- Attending physician: Jorgito Gonsalez Consults: 01/09/20 09:14 Consult Physician Routine Consulting Provider: [facility] Consult Reason/Comments: Post Interventional patient Do you want consulting provider notified?: Already Contacted Primary care physician: Bobby Dodge [facility] Course: This is a 74-year-old female patient was known CAD and prior stenting of the LCx and LAD was experiencing symptoms of chest pain with exertion concerning for severe CAD. She underwent yesterday heart catheterization and was found to have severe stenosis involving the obtuse marginal branch of the left circumflex and she underwent successful stenting of the obtuse marginal branch. The procedure was completed with excellent angiographic results and without any complication. She was seen this morning. The right radial site is soft and nontender and without any bruises. The patient is going to be discharged home on dual antiplatelet therapy and I'll follow-up with the patient next week in the office Plan - Discharge Summary Discharge Rx Participant: No New Discharge Prescriptions: New Clopidogrel [Plavix] 75 mg PO DAILY #90 tab Continue Escitalopram [Lexapro] 10 mg PO DAILY Metoprolol Succinate [Toprol XL] 25 mg PO QAM Meloxicam [Mobic] 15 mg PO DAILY Aspirin 81 mg PO DAILY Cholecalciferol (Vitamin D3) [Vitamin D3] 2,000 unit PO DAILY Calcium Carbonate/Vitamin D3 [Calcium 500-Vit D3 200 Tablet] 1 each PO DAILY Atorvastatin [Lipitor] 80 mg PO HS #30 tab Nitroglycerin Sl Tabs [Nitrostat] 0.4 mg SUBLINGUAL Q5M PRN #25 tab PRN Reason: Chest Pain Isosorbide Mononitrate [Isosorbide Mononitrate ER] 30 mg PO DAILY Discharge Medication List Escitalopram [Lexapro] 10 mg PO DAILY 09/12/14 [History] Metoprolol Succinate [Toprol XL] 25 mg PO QAM 08/11/17 [History] Meloxicam [Mobic] 15 mg PO DAILY 01/03/18 [History] Aspirin 81 mg PO DAILY 11/15/18 [History] Calcium Carbonate/Vitamin D3 [Calcium 500-Vit D3 200 Tablet] 1 each PO DAILY 11/15/18 [History] Cholecalciferol (Vitamin D3) [Vitamin D3] 2,000 unit PO DAILY 11/15/18 [History] Atorvastatin [Lipitor] 80 mg PO HS #30 tab 11/21/18 [Rx] Nitroglycerin Sl Tabs [Nitrostat] 0.4 mg SUBLINGUAL Q5M PRN #25 tab 11/21/18 [Rx] Isosorbide Mononitrate [Isosorbide Mononitrate ER] 30 mg PO DAILY 01/09/20 [History] Clopidogrel [Plavix] 75 mg PO DAILY #90 tab 01/10/20 [Rx] Follow up Appointment(s)/Referral(s): Jorgito Gonsalez MD [STAFF PHYSICIAN] - 1 Week
== END 2020-01-10 11:50 | disposition home or self-care (01) ==
LOC: CATHCVL 06:20 → 3SCARD 09:15 → CATHCVL 01-10 11:50
PROVIDERS: ATTEND Internal Medicine Interventional Cardiology
DX: I25.110 Atherosclerotic heart disease of native coronary artery with unstable angina pectoris (principal); I10 Essential (primary) hypertension; Z72.0 Tobacco use; E78.5 Hyperlipidemia, unspecified; I65.23 Occlusion and stenosis of bilateral carotid arteries; M19.90 Unspecified osteoarthritis, unspecified site; Z82.49 Family history of ischemic heart disease and other diseases of the circulatory system; E78.00 Pure hypercholesterolemia, unspecified; Z95.5 Presence of coronary angioplasty implant and graft; Z79.1 Long term (current) use of non-steroidal anti-inflammatories (NSAID); Z79.82 Long term (current) use of aspirin; Z79.899 Other long term (current) drug therapy; Z88.1 Allergy status to other antibiotic agents; Z88.2 Allergy status to sulfonamides
CPT/HCPCS: 93458; 85347; 80048; 85025; C9600; C1769 ×3; C1887; C1725; C1874; C1894; J2250; J2001; J1644; Q9967

== ENCOUNTER → 2020-06-03 | Outpatient (CLI) | payer MEDICARE ==
--- NOTE | 2020-06-03 16:09 | BD ---
EXAMINATION TYPE: Axial Bone Density DATE OF EXAM: 06/03/2020 COMPARISON: 09/11/2015 CLINICAL HISTORY: 75-year-old female postmenopausal screening Height: 63 IN Weight: 176 LBS RISK FACTORS HISTORY OF: Surgery to Hip(right): YES When: 2018 Family History of Osteoporosis: YES MOTHER Active: YES Postmenopausal woman: AGE 51 Take estrogen and/or progesterone medications: NOT NOW How lon YEARS MEDICATIONS: Additional Medications: CALCIUM, VIT D, MOBIC, ANXIETY MEDS, CHOLESTEROL MEDS, PLAVIX, 81 MG ASPIRIN, BLOOD PRESSURE MEDS Additional History: BREAST CANCER 2006 EXAM MEASUREMENTS: Bone mineral densitometry was performed using the [employer]. Bone mineral density as measured about the Lumbar spine is: ----- L1-L4(G/cm2): 1.288 T Score Values are as follows: ----- L2: 0.8 ----- L3: 1.3 ----- L4: 1.8 ----- L1-L4: 0.9 Bone mineral density has: Increased 1.3% since study of: 09/11/2015 Bone mineral density about the L hip (g/cm2): 0.986 T Score values are as follows: -----L Neck: -0.4 -----L Total: 0.4 Bone mineral density has: Decreased -0.7% since study of: 09/11/2015 IMPRESSION: Normal (Values between +1 and -1 indicate normal bone mass). Consider repeating this study in 5 year s or sooner if there is some new clinical indication. NOTE: T-SCORE=SD OF THE YOUNG ADULT MEAN.
--- NOTE | 2020-06-04 08:50 | MM ---
Reason for exam: additional evaluation requested from prior study. Last mammogram was performed 1 year and 2 months ago. History: Patient is postmenopausal, has history of breast cancer at age 62, and is nulliparous. Benign MG stereo VAD BX LT of the left breast, September 25, 2018. Mastectomy of the right breast, 2006. 3 excisional biopsies of the left breast. Took estrogen for 5 years. Took progesterone for 5 years. Taking antineoplastic for 4 years beginning at age 62. Physical Findings: Nurse did not find any significant physical abnormalities on exam. MG 3D Diag Mammo W/Cad LT CC and MLO view(s) were taken of the left breast. Prior study comparison: March 28, 2019, left breast MG 3d diag mammo w/cad LT. September 05, 2018, left breast MG 3d diag mammo w/cad LT. There are scattered fibroglandular densities. Previous mammotome biopsy in the left breast. Scattered calcifications are unchanged. No significant new findings when compared with previous films. These results were verbally communicated with the patient and result sheet given to the patient on 06/03/20. ASSESSMENT: Incomplete: need additional imaging evaluation, BI-RAD 0 RECOMMENDATION: Ultrasound. (right breast, patient's palpable site, medial mastectomy site)
--- NOTE | 2020-06-04 08:57 | USB ---
Reason for exam: additional evaluation requested from abnormal screening. History: Patient is postmenopausal, has history of breast cancer at age 62, and is nulliparous. Benign MG stereo VAD BX LT of the left breast, September 25, 2018. Mastectomy of the right breast, 2006. 3 excisional biopsies of the left breast. Took estrogen for 5 years. Took progesterone for 5 years. Taking antineoplastic for 4 years beginning at age 62. US Breast Limited RT Right limited breast ultrasound including focal area of concern, retroareolar and axilla demonstrates no cystic or solid lesion seen. Scanning was performed from3-9 o'clock over the mastectomy scar as well as the axilla. In the axilla there is a borderline sized node measuring 1.4 x 1.2 x 0.8cm with contex showing slight uniform thickening up to 5mm. This maybe reactive. 3 month follow up recommended. These results were verbally communicated with the patient and result sheet given to the patient on 06/03/20. ASSESSMENT: Probably benign, BI-RAD 3 RECOMMENDATION: Ultrasound of the right breast in 3 months.
== END | disposition home or self-care (01) ==
LOC: RADMAMWWP 13:55
PROVIDERS: ATTEND Obstetrics & Gynecology
DX: R92.8 Other abnormal and inconclusive findings on diagnostic imaging of breast (principal); N95.1 Menopausal and female climacteric states; Z85.3 Personal history of malignant neoplasm of breast; Z90.11 Acquired absence of right breast and nipple
CPT/HCPCS: 77080; 77065; 76642; G0279; 77061

== ENCOUNTER → 2020-09-07 | Outpatient (CLI) | payer MEDICARE ==
--- NOTE | 2020-09-07 09:38 | USB ---
Reason for exam: follow-up at short interval from prior study. History: Patient is postmenopausal, has history of breast cancer at age 62, and is nulliparous. Benign MG stereo VAD BX LT of the left breast, September 25, 2018. Mastectomy of the right breast, 2006. 3 excisional biopsies of the left breast. Took estrogen for 5 years. Took progesterone for 5 years. Taking antineoplastic for 4 years beginning at age 62. Physical Findings: Nurse Summary: Patient complains of pain upper outer right chest radiating to upper back (nurse davina). US Breast Axilla RT Right breast axilla ultrasound demonstrates a 1.3 x 0.6 x 1.0cm lymph node at the axilla. These results were verbally communicated with the patient and result sheet given to the patient on 09/07/20. ASSESSMENT: Probably benign, BI-RAD 3 RECOMMENDATION: Ultrasound of the right breast in 9 months.
== END | disposition home or self-care (01) ==
LOC: RADUSWWP 08:46
PROVIDERS: ATTEND Obstetrics & Gynecology
DX: R92.8 Other abnormal and inconclusive findings on diagnostic imaging of breast (principal)

== ENCOUNTER → 2020-10-26 | Outpatient (CLI) | payer MEDICARE | END | disposition home or self-care (01) | LOC: LABPAT 11:11 | PROVIDERS: ATTEND Orthopaedic Surgery | DX: Z01.812 Encounter for preprocedural laboratory examination (principal); M16.12 Unilateral primary osteoarthritis, left hip | CPT/HCPCS: 87070 ==

== ENCOUNTER 2020-11-12 10:25 | Day surgery (SDC) | payer MEDICARE ==
[2020-11-09 09:57] VITALS: BMI 29.9
[~2020-11-12 10:25] MED LIST changes: +ALPRAZolam 0.25 MG TAB PO PRN; +ALPRAZolam 0.5 MG TAB PO PRN; +ASPIRIN 325 MG TAB PO STA; +ATORVASTATIN 80 MG TAB PO STA; -HYDROmorphone 0.5 MG/0.5 ML SYRINGE IVP PRN; -LACTATED RINGERS 1,000 ML IV SCH; -LIDOCAINE 1% 20 ML VIAL (10MG/ML) FOR IV START INTRADERMA PRN; +NITROGLYCERIN SL TABS 0.4 MG TAB SUBLINGUAL PRN; -ONDANSETRON 4 MG/2 ML VIAL IVP ONE; +SODIUM CHLORIDE 0.9% 1,000 ML in EMPTY BAG 1 BAG IV ONE
[2020-11-12] MEDS ORDERED: fentaNYL (PF) 50 MCG/ML 2 ML AMP IVP ONE (12:27)
[2020-11-12] MEDS ORDERED: LIDOCAINE 1% INJ 10MG/ML (20 ML MDV) SQ ONE (12:27)
[2020-11-12] MEDS: MIDAZOLAM 2 MG/2 ML VIAL IVP ONE ×2 (12:27→12:47)
[2020-11-12] MEDS ORDERED: VERAPAMIL SYRINGE (5 MG/10 ML) INTRAARTER ONE (12:27)
[2020-11-12] MEDS ORDERED: BIVALIRUDIN BOLUS 250 MG/50 ML IV ONE (12:40)
[2020-11-12] MEDS ORDERED: BIVALIRUDIN 250 MG in SODIUM CHLORIDE 0.9% 50 ML IV ONE (12:40)
[2020-11-12] MEDS ORDERED: CLOPIDOGREL 75 MG TAB PO ONE (12:51)
[2020-11-12] MEDS ORDERED: IOPAMIDOL-370 125ML BTL INJ ONE (12:56)
[2020-11-12] MEDS ORDERED: NITROGLYCERIN SL TABS 0.4 MG TAB SUBLINGUAL PRN ×2 (12:59→13:00)
[2020-11-12] MEDS ORDERED: ZOLPIDEM 5 MG TAB PO PRN (13:00)
[2020-11-12] MEDS ORDERED: ATROPINE SULFATE 0.1 MG/ML 10ML SYRINGE IV PRN (13:00)
[2020-11-12] MEDS ORDERED: RX INFO: IV CONTRAST WAS GIVEN 1 EACH MISC MISCELLANE PRN (13:00)
[2020-11-12] MEDS ORDERED: SODIUM CHLORIDE 0.9% 1,000 ML IV SCH (13:00)
[2020-11-12] MEDS ORDERED: MAG HYDROX/AL HYDROX/SIMETH 30 ML CUP PO PRN (13:00)
--- NOTE | 2020-11-12 14:59 | CC ---
CARDIAC CATHETERIZATION REPORT CARDIAC CATHETERIZATION AND PERCUTANEOUS CORONARY INTERVENTION: DATE OF SERVICE: November 12, 2020. PERFORMING PHYSICIAN: Jorgito Gonsalez MD. PROCEDURE PERFORMED: 1. Selective right and left coronary angiogram. 2. Successful stenting of the proximal left circumflex using 3.5 x 15 mm Xience CONCEPCIÓN with an excellent angiographic results. INDICATION: This is a 75-year-old female patient with coronary artery disease and prior stenting of the LAD and LCX, who was experiencing symptoms of chest discomfort with exertion concerning for angina. She underwent myocardial perfusion imaging stress test and that revealed reversible defect and because of that, a heart catheterization was advised. APPROACH: Right radial artery. COMPLICATION: None. LEVEL OF SEDATION: Moderate with sedation length of 31 minutes. PROCEDURE DESCRIPTION: After obtaining an informed consent, the patient was brought to the cardiac label stamper. The right radial artery was cannulated using micropuncture technique and a micropuncture wire passed easily then I placed a 6-Chinese sheath in the right radial artery. Selective right and left coronary angiogram performed with JR4 and JL3.5 catheters. After that I did intervene on the left circumflex, please see a separate paragraph for that. SELECTIVE CORONARY ANGIOGRAM: 1. The RCA is a small caliber vessel and nondominant vessel and appeared to be angiographically normal. 2. The left main is angiographically normal. It bifurcates into LCX and LAD. 3. The LCX is a large caliber vessel and it is a dominant vessel. The proximal circumflex has eccentric lesion appeared to be in the range of 70% was most appreciated on the MELISSA caudal view. The mid left circumflex appeared to be angiographically normal and the circumflex distally is normal. The gives rise into an OM branch in the midportion which has a stent and the stent is patent. 4. The LAD: The proximal LAD has mild disease only. The mid LAD is stented and the stent is patent and the LAD distally appeared to be angiographically normal. PCI OF THE LEFT CIRCUMFLEX: Anticoagulation was initiated using Angiomax. Subsequently I did engage the left main using JL4 with a short tip. I did wire the left circumflex with using a run- through wire. I attempted advancing stent over the run-through, but the stent will not cross the lesion in the left circumflex and because of that I double wire the circumflex using a heidi wire with a Whisper in addition to the run-through. Balloon angioplasty achieved using 3.5 x 12 mm balloon. Subsequently, I deployed a 3.5 x 15 mm Xience drug-eluting stent where the stent was positioned under fluoroscopy guidance and deployed under its nominal pressure. The following angiogram showed excellent angiographic results. CONCLUSION: 1. A medium caliber nondominant right coronary artery appeared to be angiographically normal. 2. Severe disease involving the proximal left circumflex. Patent stent in the OM1. I did successful stenting of the proximal left circumflex today with good angiographic results. 3. Patent stent in the mid LAD. POSTPROCEDURE MANAGEMENT: 1. Dual anti-platelet therapy. 2. Risk factor modifications. 3. Follow up with the patient. MMODL / IJN: [id number] /
--- NOTE | 2020-11-12 15:22 | LTR ---
November 12, 2020 Re: Coni Rogerio Dear Dr. Dodge: Ms. Coni Beatty underwent today heart catheterization and that revealed severe disease involving the left circumflex coronary artery. I did perform successful stenting of the left circumflex with an excellent angiographic result and without any complication. I want to thank you for allowing me to participate in her care and please do not hesitate to call if you have any question or concern. Sincerely, MD CASEY Perez / JACOB: [id number] /
[2020-11-12] MEDS ORDERED: METOPROLOL SUCCINATE (ER) 50 MG TAB.ER.24H PO SCH (21:00)
[2020-11-13 08:21] VITALS: BP 147/78; PULSE 63; RESP 20; TEMP 98
[2020-11-13] MEDS ORDERED: CHOLECALCIFEROL 25 MCG (1000 IU) TABLET PO SCH (09:00)
[2020-11-13] MEDS ORDERED: ESCITALOPRAM 10 MG TAB PO SCH (09:00)
[2020-11-13] MEDS ORDERED: CLOPIDOGREL 75 MG TAB PO SCH (09:00)
[2020-11-13] MEDS ORDERED: MELOXICAM 7.5 MG TAB PO SCH (09:00)
[2020-11-13] MEDS ORDERED: ASPIRIN 81 MG PO SCH (09:00)
[2020-11-13] MEDS ORDERED: ATORVASTATIN 80 MG TAB PO SCH (09:00)
[2020-11-13] MEDS ORDERED: CALCIUM CARB-VIT D 500 MG-5 MCG TAB PO SCH (09:00)
[2020-11-13 09:10] LABS: Basophils % (A) 0 %; Eosinophils # (A) 0.2 k/uL (0-0.7); Eosinophils % (A) 2 %; HCT 40.9 % (34.0-46.0); HGB 13.1 gm/dL (11.4-16.0); Lymphocytes # (A) 1.4 k/uL (1.0-4.8); Lymphocytes % (A) 20 %; MCH 30.3 pg (25.0-35.0); MCHC 31.9 g/dL (31.0-37.0); Monocytes # (A) 0.4 k/uL (0-1.0); Monocytes % (A) 6 %; Neutrophils % (A) 70 %; Platelet Count 181 k/uL (150-450); RBC 4.31 m/uL (3.80-5.40); RDW 13.7 % (11.5-15.5); WBC 7.1 k/uL (3.8-10.6)
[2020-11-13 09:25] LABS: African American GFR (CKD) >90 (>60 ml/min/1.73 sqM); Anion Gap 4 mmol/L; Blood Urea Nitrogen 19 mg/dL (7-17); Calcium 8.9 mg/dL (8.4-10.2); Carbon Dioxide 29 mmol/L (22-30); Chloride 106 mmol/L (98-107); Glucose 103 mg/dL (74-99); Non-African American GFR(CKD) 84 (>60 ml/min/1.73 sqM); Potassium 4.3 mmol/L (3.5-5.1); Sodium 139 mmol/L (137-145)
--- NOTE | 2020-11-13 13:36 | DS ---
DISCHARGE SUMMARY ADMISSION DATE: November 12, 2020. DISCHARGE DATE: November 13, 2020. BRIEF HISTORY: This is a 75-year-old female patient who was seen in the office recently where she was experiencing chest discomfort with exertion concerning for angina. She underwent a heart catheterization yesterday and that revealed severe disease involving the left circumflex which was stented with good angiographic results. She was seen this morning. She is asymptomatic. She is going to be discharged home on dual anti-platelet therapy and high-intensity statin and I will follow up with the patient next week in the office. MMODL / IJN: [id number] /
== END 2020-11-13 11:33 | disposition home or self-care (01) ==
LOC: CATHCVL 10:25 → 3SCARD 14:40 → CATHCVL 11-13 11:33
PROVIDERS: ATTEND Internal Medicine Interventional Cardiology
DX: I25.110 Atherosclerotic heart disease of native coronary artery with unstable angina pectoris (principal); I35.1 Nonrheumatic aortic (valve) insufficiency; I10 Essential (primary) hypertension; E78.5 Hyperlipidemia, unspecified; Z79.82 Long term (current) use of aspirin; Z79.02 Long term (current) use of antithrombotics/antiplatelets; Z79.899 Other long term (current) drug therapy; Z88.1 Allergy status to other antibiotic agents; Z88.2 Allergy status to sulfonamides; Z95.5 Presence of coronary angioplasty implant and graft; Z82.49 Family history of ischemic heart disease and other diseases of the circulatory system
CPT/HCPCS: 93458; 80048; 85025; C9600; C1769 ×3; C1887; C1725; C1874; C1894; J2250; J2001; J3010; J0583; Q9967

== ENCOUNTER → 2021-03-09 | Outpatient (CLI) | payer MEDICARE ==
--- NOTE | 2021-03-09 12:02 | CT ---
EXAMINATION TYPE: CT angio neck DATE OF EXAM: 03/09/2021 HISTORY: Carotid stenosis of the right carotid artery. COMPARISON: CTA neck May 07, 2019 CT DLP: 389.3 mGycm. Automated Exposure Control for Dose Reduction was Utilized. TECHNIQUE: CTA scan of the neck is performed with IV Contrast, patient injected with 65 mL of Isovue 370, axial images are obtained, coronal and sagittal reformatted images are reviewed. MIP Images are created on CT scanner and reviewed. 3D reconstructed images are created on an independent workstatio n and reviewed. FINDINGS: Carotid/Vascular Structures: Mild to moderate peripheral calcified plaque is seen in the aortic arch . There is normal three-vessel origin from the arch without significant stenosis redemonstrated, mild peripheral plaque is noted. Right common carotid artery shows normal origin from right brachiocephal ic artery. There is stable moderate anterior eccentric calcified plaque distal right common carotid a rtery extending into carotid bulb where there is more significant noncalcified plaque extending into the external carotid artery causing significant stenosis. More mild to moderate plaque extends into r ight internal carotid artery with stenosis approaching but measured under 50%. No significant progres miguel from prior. There is some tortuous course to the right internal carotid artery without significa nt plaque or stenosis distal to this. Left common carotid artery shows mild peripheral plaque without significant stenosis to carotid bulb level where there has been interval surgery. No significant focal plaque or stenosis on current study . Patent left external carotid artery without significant plaque or stenosis. Remainder of left inter nal carotid artery shows tortuous course with mild calcified plaque but no significant stenosis. There is dominant left vertebral artery. Vertebral arteries are patent to basilar junction. Other: Mild to moderate underlying emphysematous change is redemonstrated. Mild multilevel spurring in the cervical spine with mild multilevel disc space narrowing IMPRESSION: Successful interval treatment of left carotid stenosis. Stable findings on the right with out significant interval progression or new greater than 50% stenosis in the right internal carotid a rtery. Significant stenosis right external carotid artery remains present without interval progressio n.
== END | disposition home or self-care (01) ==
LOC: RADCTMAIN 07:56
PROVIDERS: ATTEND Surgery
DX: I65.23 Occlusion and stenosis of bilateral carotid arteries (principal)
CPT/HCPCS: 82565; 84520; 70498; 36415; Q9967

== ENCOUNTER → 2021-06-09 | Outpatient (CLI) | payer MEDICARE ==
--- NOTE | 2021-06-09 12:13 | MM ---
Reason for exam: additional evaluation requested from prior study. Last mammogram was performed 1 year ago. History: Patient is postmenopausal, has history of breast cancer at age 62, and is nulliparous. Benign MG stereo VAD BX LT of the left breast, September 25, 2018. Mastectomy of the right breast, 2006. 3 excisional biopsies of the left breast. Took estrogen for 5 years. Took progesterone for 5 years. Taking antineoplastic for 4 years beginning at age 62. Physical Findings: Nurse did not find any significant physical abnormalities on exam. MG 3D Diag Mammo W/Cad LT CC and MLO view(s) were taken of the left breast. Prior study comparison: June 03, 2020, left breast MG 3d diag mammo w/cad LT. March 28, 2019, left breast MG 3d diag mammo w/cad LT. The breast tissue is heterogeneously dense. This may lower the sensitivity of mammography. Stable benign calcifications. There is no discrete abnormality. No significant new findings when compared with previous films. These results were verbally communicated with the patient and result sheet given to the patient on 06/09/21. ASSESSMENT: Benign, BI-RAD 2 RECOMMENDATION: Follow-up diagnostic mammogram of the left breast in 1 year. Manage patient on a clinical basis.
--- NOTE | 2021-06-09 12:14 | USB ---
Reason for exam: clinical finding. History: Patient is postmenopausal, has history of breast cancer at age 62, and is nulliparous. Benign MG stereo VAD BX LT of the left breast, September 25, 2018. Mastectomy of the right breast, 2006. 3 excisional biopsies of the left breast. Took estrogen for 5 years. Took progesterone for 5 years. Taking antineoplastic for 4 years beginning at age 62. US Breast Axilla RT Right breast axilla ultrasound demonstrates a 1.2 x 0.7 x 0.8cm lymph node at the axilla. No change. These results were verbally communicated with the patient and result sheet given to the patient on 06/09/21. ASSESSMENT: Probably benign, BI-RAD 3 RECOMMENDATION: Ultrasound of the right breast in 6 months.
== END | disposition home or self-care (01) ==
LOC: RADMAMWWP 08:57
PROVIDERS: ATTEND Family Medicine
DX: R92.2 Inconclusive mammogram (principal); R92.1 Mammographic calcification found on diagnostic imaging of breast; Z78.0 Asymptomatic menopausal state; Z85.3 Personal history of malignant neoplasm of breast; R59.0 Localized enlarged lymph nodes
CPT/HCPCS: 77065; 76642; G0279; 77061

== ENCOUNTER → 2021-08-05 | Outpatient (CLI) | payer MEDICARE ==
[2021-08-05 15:25] LABS: Basophils % (A) 0 %; Eosinophils # (A) 0.3 k/uL (0-0.7); Eosinophils % (A) 5 %; HCT 36.9 % (34.0-46.0); HGB 12.2 gm/dL (11.4-16.0); Lymphocytes # (A) 1.7 k/uL (1.0-4.8); Lymphocytes % (A) 28 %; MCH 32.1 pg (25.0-35.0); MCV 97.2 fL (80.0-100.0); Mean Platelet Volume 9.2; Monocytes # (A) 0.3 k/uL (0-1.0); Monocytes % (A) 5 %; Neutrophils # (A) 3.7 k/uL (1.3-7.7); Neutrophils % (A) 59 %; Platelet Count 164 k/uL (150-450); RDW 13.5 % (11.5-15.5); WBC 6.2 k/uL (3.8-10.6)
[2021-08-05 15:34] LABS: Prothrombin Time 10.7 sec (9.0-12.0)
[2021-08-05 15:47] LABS: Potassium 3.9 mmol/L (3.5-5.1)
== END | disposition home or self-care (01) ==
LOC: LABPAT 14:05
PROVIDERS: ATTEND Orthopaedic Surgery
DX: Z01.812 Encounter for preprocedural laboratory examination (principal); M16.12 Unilateral primary osteoarthritis, left hip; Z22.322 Carrier or suspected carrier of Methicillin resistant Staphylococcus aureus
CPT/HCPCS: 80051; 85025; 85610; 87070

== ENCOUNTER 2021-08-16 06:19 | Day surgery (SDC) | payer MEDICARE ==
[2021-08-09 11:17] VITALS: BMI 29.1
--- NOTE | 2021-08-15 11:41 | HP ---
HISTORY AND PHYSICAL DATE OF SURGERY: 08/16/2021 Coni Beatty is a 76-year-old patient seen with symptomatic left hip osteoarthritis. After treatment options were discussed with her, she elected to proceed with direct anterior left total hip arthroplasty. Consent was obtained. Cardiac clearance was provided by Dr. Gonsalez, medical clearance by Dr. Dodge. PAST MEDICAL HISTORY: Cardiovascular disease, hypertension, hyperlipidemia. PAST SURGICAL HISTORY: Right total knee arthroplasty, cardiac catheterization with stent insertion. DAILY MEDICATIONS: Lexapro, Lipitor, meloxicam, Plavix, Toprol. ALLERGIES: SULFA, CIPRO, CLEOCIN, AMOXICILLIN. SOCIAL HISTORY: She denies tobacco use. PHYSICAL EVALUATION OF THE LEFT HIP: There is diffuse tenderness about the hip girdle. There is limited range of motion with severe pain. Positive hip impingement sign. Straight-leg raise negative. Distal neurovascular exam is intact. RADIOGRAPHS: Left hip radiographs reveal severe osteoarthritic changes. IMPRESSION: 1. Left hip osteoarthritis. 2. Hypertension. 3. Hyperlipidemia. 4. Cardiovascular disease. PLAN: Left total hip arthroplasty via direct anterior approach. MMODL / IJN: [id number] /
[~2021-08-16 06:19] MED LIST changes: +ACETAMINOPHEN TAB 500 MG TAB PO PRN; -ALPRAZolam 0.25 MG TAB PO PRN; -ALPRAZolam 0.5 MG TAB PO PRN; -ASPIRIN 325 MG TAB PO STA; -ATORVASTATIN 80 MG TAB PO STA; +MELOXICAM 7.5 MG TAB PO PRN; -NITROGLYCERIN SL TABS 0.4 MG TAB SUBLINGUAL PRN; +ROPIVACAINE 246.25 MG, EPINEPHrine 0.5 MG, KETOROLAC 30 MG, cloNIDine HCL/PF 80 MCG, WA... MISCELLANE PRN; -SODIUM CHLORIDE 0.9% 1,000 ML in EMPTY BAG 1 BAG IV ONE; +TRANEXAMIC ACID 1,000 MG in SODIUM CHLORIDE 0.9% 100 ML IVPB PRN
[2021-08-16] MEDS ORDERED: DEXAMETHASONE SOD PHOSPHATE 4 MG/ML 1 ML VIAL IV ONE (06:28)
[2021-08-16] MEDS ORDERED: MIDAZOLAM 2 MG/2 ML VIAL IV PRN (06:28)
[2021-08-16] MEDS ORDERED: ONDANSETRON 4 MG/2 ML VIAL IVP ONE ×2 (06:28→09:58)
[2021-08-16] MEDS: LACTATED RINGERS 1,000 ML IV SCH ×3 (07:06→21:17)
[2021-08-16] MEDS ORDERED: TRANEXAMIC ACID 1,000 MG/10 ML VIAL ONE (07:34)
[2021-08-16] MEDS ORDERED: LIDOCAINE 1% INJ 10MG/ML (20 ML MDV) ONE (07:34)
[2021-08-16] MEDS ORDERED: SUCCINYLCHOLINE CHLORIDE 100 MG/5 ML SYR IV ONE (07:34)
[2021-08-16] MEDS ORDERED: ePHEDrine SULFATE/0.9% NACL/PF 50 MG/5 ML SYRINGE IV ONE (07:34)
[2021-08-16] MEDS ORDERED: SODIUM CHLORIDE 0.9% 100 ML BAG ONE (07:34)
[2021-08-16] MEDS ORDERED: hydrALAZINE HCL 20 MG/ML 1 ML VIAL ONE (07:34)
[2021-08-16] MEDS ORDERED: PROPOFOL 10 MG/ML 20 ML VIAL IV ONE (07:34)
[2021-08-16] MEDS ORDERED: MIDAZOLAM 2 MG/2 ML VIAL ONE (07:34)
[2021-08-16] MEDS ORDERED: fentaNYL (PF) 50 MCG/ML 2 ML AMP ONE (07:34)
[2021-08-16] MEDS ORDERED: ceFAZolin 1,000 MG in SODIUM CHLORIDE 0.9% 1,000 ML IRRIGATION ONE (07:39)
--- NOTE | 2021-08-16 08:59 | FL ---
Fluoroscopy HISTORY: Hip arthroplasty 7 seconds fluoroscopy time supplied to the referring clinician. 2 intraoperative C-arm images docume nt the procedure. See dictated report from orthopedic surgery.
[2021-08-16] MEDS ORDERED: HYDROmorphone 0.5 MG/0.5 ML SYRINGE IVP PRN ×2 (09:14)
[2021-08-16] MEDS ORDERED: HYDROmorphone 0.2 MG/1 ML SYRINGE IVP PRN (09:14)
[2021-08-16] MEDS ORDERED: NALOXONE 0.4 MG/ML 1 ML VIAL IV PRN (09:14)
[2021-08-16] MEDS ORDERED: HYDROcodone/APAP 5-325MG 1 EACH TAB PO PRN (09:14)
[2021-08-16] MEDS ORDERED: ONDANSETRON 4 MG/2 ML VIAL IVP PRN (09:14)
--- NOTE | 2021-08-16 09:14 | P.OP ---
Date of Procedure: 08/16/21 Preoperative Diagnosis: Left hip osteoarthritis Postoperative Diagnosis: Left hip osteoarthritis Procedure(s) Performed: Direct anterior left total arthroplasty Implants: 1. Depuy Corail standard collar KA size 10 press-fit femoral stem 2. Depuy pinnacle 52 mm press-fit acetabular shell 3. Depuy pinnacle neutral polyethylene acetabular liner 36 mm ID 52 mm OD 4. Biolox delta ceramic femoral head +1.5 36 mm Anesthesia: SANDEEPA, local Surgeon: Juventino Bhatt [employer] Metal Car Operator #1: Kiko Ballard Estimated Blood Loss (ml): 95 Pathology: other (Femoral head) Condition: stable Disposition: PACU Indications for Procedure: 76-year-old patient seen with symptomatic left hip osteoarthritis. After treatment options were discussed, she elected to proceed with total hip arthroplasty. Operative Findings: See description of procedure Description of Procedure: The patient was taken to the operative suite. Patient underwent a general anesthetic by the department of anesthesia. Patient was then transferred to the [place] table. Patient was given preoperative IV antibiotics and TXA. Both lower extremities were placed in standard leg spars. The hip was then prepped and draped in the normal sterile orthopedic fashion. A standard anterior incision was made beginning 3 cm lateral and 1 cm distal to the ASIS extending 10 cm. Dissection was then carried down through the subcutaneous soft tissues down to the fascia overlying the tensor fascia benito. An incision was now made through the fascia. Careful dissection was taken down exposing the tensor fascia benito muscle. A Cobra retractor was now placed along the medial femoral neck and a second one along the lateral femoral neck. The venous circumflex vessels were now identified, cauterized and clipped. We identified the anterior hip capsule. An incision was made through the hip capsule along the lateral border. I performed a partial anterior capsulectomy. Retractors were now placed around the femoral neck itself. A femoral neck cut was now made with a sagittal saw. It was completed with an osteotome at the lateral neck area. The femoral head was now removed without difficulty. The extremity was now rotated to 60 of external rotation. It was locked in position. Residual labrum was now debrided out. Serial reaming was performed of the acetabulum while Vinod MORGAN assisted holding an anterior retractor for exposure. Once we reached the appropriate size and a trial was position and fit nicely. The appropriate size was now chosen opened and made available. It was introduced into the acetabulum without difficulty. The C-arm/fluoroscopy was now brought into the operative field. We made sure we had a true AP pelvic view. We now under direct C- arm/fluoroscopy introduced into the acetabular component with appropriate version and inclination. I held the cup in appropriate position well Vinod MORGAN used a mallet to seat the acetabular component. I noted the component now to be well seated and stable. Acetabular cup introduce her was removed. The C-arm was pulled back. An appropriate liner was introduced and clicked into position. It was felt to be stable. At this point retractors were removed. The extremity was now placed into 140 external rotation with no traction. The leg was now dropped to the ground and adducted. Appropriate retractors were now positioned along the proximal femur. We also placed our femoral look into position. Additional capsular releasing was performed to gain access to the proximal femur. We now used a box osteotome. A canal finder was now utilized. Serial broaching was now performed with the assistance of Vinod MORGAN tapping the broaches down with a mallet while held the broach in appropriate rotation and position. This was done until we reached the appropriate size with good overall rotational stability. Appropriate calcar planing was performed. A trial head/neck was placed into position. The hip was now reduced. The C- arm/fluoroscopy was brought back into the operative field. I obtained an AP pelvis which demonstrated reasonable alignment. The trial components appeared adequately size. The C-arm/fluoroscopy was pulled back. Retractors were repositioned and the hip was dislocated. The leg was again taken down to the ground and adducted. Appropriate retractors were repositioned as well as the femoral hook. All trial components were removed. The femoral implant was opened along with the femoral head. The femoral implant was introduced on the appropriate handle into our pre-broached area. I held the component position well Vinod MORGAN used a mallet to seat the femoral component. The femoral component was now noted to be well seated and stable.. The femoral head was introduced with good positioning and fixation noted. Retractors were now removed. The hip was now reduced. There appeared be good positioning of the hip confirmed on intraoperative fluoroscopy. Spot films were obtained to document this. A second gram of TXA was given. The deep and superficial soft tissues were infiltrated with local analgesic. Bipolar cautery had been utilized intermittently through the procedure for hemostasis. The wound was irrigated copiously with pulse lavage mechanical irrigation. The subcutaneous soft tissues were infiltrated local analgesic. The fascia was repaired with Vicryl suture. The subcutaneous soft tissues were repaired in layers with Vicryl suture. The skin was approximated with pernio/Dermabond. Sterile dressings were applied. Patient was then awakened, transferred to a bed and taken to recovery in stable condition. Vinod MORGAN assisted with the complex procedure.
[2021-08-16] MEDS ORDERED: LACTATED RINGERS 1,000 ML IV ONE ×2 (10:00)
[2021-08-16] MEDS: HYDROmorphone 0.5 MG/0.5 ML SYRINGE IVP PRN ×2 (10:02→10:17)
[2021-08-16] MEDS: HYDROcodone/APAP 5-325MG 1 EACH TAB PO PRN ×2 (16:59→21:49)
[2021-08-16] MEDS ORDERED: SENNOSIDES-DOCUSATE SODIUM 1 EACH TAB PO SCH (21:00)
[2021-08-17] MEDS: LACTATED RINGERS 1,000 ML IV SCH (02:14)
[2021-08-17] MEDS: HYDROcodone/APAP 5-325MG 1 EACH TAB PO PRN (03:57)
[2021-08-17 08:37] VITALS: BP 130/80; PULSE 59; RESP 16; TEMP 98
[2021-08-17] MEDS ORDERED: ENOXAPARIN 40 MG/0.4 ML SYRINGE SQ SCH (09:00)
[2021-08-17] MEDS ORDERED: FAMOTIDINE 20 MG TAB PO SCH (09:00)
[2021-08-17 11:42] LABS: Basophils # (A) 0.02 X 10*3/uL (0.00-0.10); Basophils % (A) 0.1 %; Eosinophils # (A) 0 X 10*3/uL (0.04-0.35); Eosinophils % (A) 0 %; HCT 31.1 % (37.2-46.3); HGB 9.6 g/dL (12.0-15.0); Lymphocytes # (A) 1.53 X 10*3/uL (0.90-5.00); Lymphocytes % (A) 9.7 %; MCH 31.2 pg (27.0-32.0); MCHC 30.9 g/dL (32.0-37.0); Mean Platelet Volume 12.1 fL (9.5-12.2); Monocytes % (A) 7.6 %; Neutrophils # (A) 12.99 X 10*3/uL (1.80-7.70); Neutrophils % (A) 82.2 %; Platelet Count 181 X 10*3/uL (140-440); RBC 3.08 X 10*6/uL (4.10-5.20); RDW 14.2 % (11.5-14.5)
--- NOTE | 2021-08-17 11:53 | P.PN ---
Subjective Progress Note Date: 08/17/21 Principal diagnosis: status post direct anterior left total hip arthroplasty Patient evaluated today at bedside, she is resting in her hospital chair. She is ambulated well with physical therapy. Her pain is currently controlled with current medication regimen. She is denying any headaches, lightheadedness, chest pain or shortness of breath. Objective - Vital Signs Vital signs: Vital Signs Temp 98 F 08/17/21 08:00 Pulse 59 L 08/17/21 08:00 Resp 16 08/17/21 08:00 BP 130/80 08/17/21 08:00 Pulse Ox 97 08/17/21 08:00 Intake & Output 08/16/21 08/17/21 08/17/21 18:59 06:59 18:59 Intake Total 1326 1480 Output Total 95 Balance 1231 1480 Weight 80.9 kg Intake: IV 1326 Intake, IV Titration 1000 Amount Lactated Ringers 1,000 ml 1000 @ 70 mls/hr IV .[id number] KOURTNEY Rx#:[id number] Oral 480 Output: Estimated Blood Loss 95 Other: # Voids 1 - Exam Left lower extremity: Incision is clean, dry, and intact. The foam dressing is in good condition. There is minimal soft tissue swelling and ecchymosis surrounding the medial and lateral aspects of the incision. Calf is soft, no tenderness with palpation. Plantar flexion, dorsiflexion, EHL, FHL are intact. Sensory exam to light touch throughout the extremity is intact, dorsal pedis pulses 2+. - Labs CBC & Chem 7: 08/17/21 06:51 Labs: Abnormal Lab Results - Last 24 Hours (Table) 08/17/21 Range/Units 06:51 WBC 15.80 H (4.50-10.00) X 10*3/uL RBC 3.08 L (4.10-5.20) X 10*6/uL Hgb 9.6 L (12.0-15.0) g/dL Hct 31.1 L (37.2-46.3) % MCV 101.0 H (80.0-97.0) fL MCHC 30.9 L (32.0-37.0) g/dL Immature Gran # 0.06 H (0.00-0.04) X 10*3/uL Neutrophils # 12.99 H (1.80-7.70) X 10*3/uL Monocytes # 1.20 H (0.20-1.00) X 10*3/uL Eosinophils # 0 L (0.04-0.35) X 10*3/uL Assessment and Plan Assessment: Postoperative day #1 status post direct anterior left total hip arthroplasty Acute blood loss anemia, expected surgical outcome Plan: Pain control, plan for discharge home on [place] 5 mg/325 mg Ferrous sulfate 325 mg twice a day for 2 weeks due to anemia GI and DVT prophylaxis, patient received Lovenox subcu while in hospital, she will restart her Plavix and aspirin tomorrow Wound care injections were discussed, this to include foam tape instructions along with showering Icing and elevating techniques were discussed Home physical therapy/nursing after discharge Medical recommendations Discharge planning: Patient will be discharged home today Time with Patient: Less than 30
--- NOTE | 2021-08-17 11:59 | P.DS ---
Providers Date of admission: 08/16/2021 Expected date of discharge: 08/17/21 Attending physician: Juventino Bhatt Consults: 08/16/21 09:14 Consult Physician Routine Consulting Provider: Bobby Dodge Reason/Comments: Medical management Do you want consulting provider notified?: Yes Primary care physician: Bobby Dodge Hospital Course: Date of admission: 08/16/2021 Date of discharge: 08/17/2021 Admission diagnosis: Status post direct anterior left total hip arthroplasty Discharge diagnosis: Same Attending physician: Dr. Bhatt Surgical procedures: Direct anterior left total hip arthroplasty Brief history: Patient is a 76-year-old female with a history of progressive primary left hip osteoarthritis. At this point patient has failed conservative treatment measures and has opted to proceed with a elective direct anterior left total hip arthroplasty. Hospital course: Details of patient's surgery can be found in operative report. Patient tolerated the procedure well and was subsequently transported to orthopedic floor. Patient's orthopeidc and medical care was provided daily. Patient had daily laboratory tests performed for evaluation of overall blood counts. Patient had daily physical therapy to include strengthening range of motion as well as education with walker ambulation. Patient was treated with Lovenox for their postoperative DVT prophylaxis during their inpatient stay. Patient was noted to have a relatively uneventful postoperative course. Patient reported satisfactory pain control with oral pain medications by postoperative day 0. Patient showed satisfactory progress with physical therapy. Patient moved steadily through the program and had no difficulty meeting the goals by postoperative day 1. Given patient's otherwise satisfactory course and having met physical therapy goals, plan is to discharge patient home on postoperative day 1. Discharge condition/disposition: Patient will be discharged home in stable condition. Discharge medications: Instructions are given on resumption of patient's normal daily medications per primary care recommendation, in addition patient will be prescribed [place] 5 mg/325 mg, ferrous sulfate 325 mg. Discharge instructions: 1. Wound care and infection precautions, keep incision dry and covered while showering, no lotions, creams, moisturizers. No soaking, tubs, pools, hottubs. D o not scrub over the incision. 2. Weight-bear as tolerated with walker / cane until follow-up. 3. Ice and elevate when necessary. Do not exceed 20 minutes per hour with ice pack. 4. Utilize compression sleeve until seen at first follow up appointment. 5. Visiting nursing care. 6. Home physical therapy. 7. Pain meds and anticoagulants per prescription. 8. Pain medication has potential to cause constipation. Increase oral fluid and fiber intake. Contact primary care provider if you have not had a bowel movement within 48 hours after discharge 9. No anti-inflammatory medication until discussed at first post operative visit, this including Motrin, Aleve, Mobic, Diclofenac. 10. Follow up in office at 2 weeks postop with Vinod Ballard PA-C/Richard Li 11. Follow up with your primary care doctor 7-10 days after discharge. 12. Contact [facility] with any questions, . Procedures: Direct anterior left total hip arthroplasty Patient Condition at Discharge: Good Plan - Discharge Summary Discharge Rx Participant: No New Discharge Prescriptions: New Ferrous Sulfate [Iron (65 MG Elemental)] 325 mg PO BID #30 tab HYDROcodone/APAP 5-325MG [[place] 5-325] 1 - 2 tab PO Q6HR PRN #42 tab PRN Reason: Pain No Action Escitalopram [Lexapro] 10 mg PO QAM Meloxicam [Mobic] 15 mg PO QAM Aspirin 81 mg PO QAM Cholecalciferol (Vitamin D3) [Vitamin D3] 2,000 unit PO DAILY Nitroglycerin Sl Tabs [Nitrostat] 0.4 mg SUBLINGUAL Q5M PRN #25 tab PRN Reason: Chest Pain Metoprolol Succinate [Toprol XL] 50 mg PO HS Atorvastatin [Lipitor] 80 mg PO QAM Clopidogrel [Plavix] 75 mg PO QAM Calcium Carbonate/Vitamin D3 [Calcium 600 mg-Vit D3 5 mcg (200 unit)] 1 each PO DAILY Pantoprazole [Protonix] 40 mg PO DAILY Discharge Medication List Escitalopram [Lexapro] 10 mg PO QAM 09/12/14 [History] Meloxicam [Mobic] 15 mg PO QAM 01/03/18 [History] Aspirin 81 mg PO QAM 11/15/18 [History] Cholecalciferol (Vitamin D3) [Vitamin D3] 2,000 unit PO DAILY 11/15/18 [History] Nitroglycerin Sl Tabs [Nitrostat] 0.4 mg SUBLINGUAL Q5M PRN #25 tab 11/21/18 [Rx] Atorvastatin [Lipitor] 80 mg PO QAM 10/26/20 [History] Metoprolol Succinate [Toprol XL] 50 mg PO HS 10/26/20 [History] Calcium Carbonate/Vitamin D3 [Calcium 600 mg-Vit D3 5 mcg (200 unit)] 1 each PO DAILY 08/09/21 [History] Clopidogrel [Plavix] 75 mg PO QAM 08/09/21 [History] Pantoprazole [Protonix] 40 mg PO DAILY 08/16/21 [History] Ferrous Sulfate [Iron (65 MG Elemental)] 325 mg PO BID #30 tab 08/17/21 [Rx] HYDROcodone/APAP 5-325MG [[place] 5-325] 1 - 2 tab PO Q6HR PRN #42 tab 08/17/21 [Rx] Follow up Appointment(s)/Referral(s): [facility] [NON-STAFF] - ([facility] will call you to schedule your home care visits/home physical therapy. ) Kiko Ballard, PAC [PHYSICIAN ELECTROMECHANICAL EQUIPMENT TESTER] - 2 Weeks Activity/Diet/Wound Care/Special Instructions: Orthopedic Discharge Instructions: 1. Wound care and infection precautions, keep incision dry and covered while showering, no lotions, creams, moisturizers. No soaking, pools, hot tubs. Do not scrub over incision. 2. Weight-bear as tolerated with walker / cane until follow-up. 3. Ice and elevate when necessary. Do not exceed 20 minutes per hour with ice pack. 4. Utilize compression sleeve until seen at first follow up appointment. 5. Pain meds and anticoagulants per prescription. 6. Pain medication has potential to cause constipation. Increase oral fluid and fiber intake. Contact primary care provider if you have not had a bowel movement within 48 hours after discharge. 7. No anti-inflammatory medication until discussed at first post operative visit, this including Motrin, Aleve, Mobic, Diclofenac. 8. Follow up in office at 2 weeks postop with Vinod Ballard PA-C/Richard Mayen PA-C 9. Follow up with your primary care doctor 7-10 days after discharge. 10. Contact [facility] with any questions, . Wound care instructions: 1. Okay to remove foam dressing on 08/23/2021 2. Keep incision covered and dry when showering, this with foam dressing on and off Discharge Disposition: HOME WITH HOME HEALTH SERVICES
--- NOTE | 2021-08-17 13:43 | P.CONS ---
History of Present Illness - Reason for Consult Consult date: 08/17/21 Medical management hypertension, anxiety Requesting physician: Juventino Bhatt - Chief Complaint Left hip osteoarthritis status post anterior total hip arthroplasty - History of Present Illness This is a 76-year-old with past medical history of CAD, stenting of the obtuse marginal and circumflex, carotid artery disease, hypertension, hyperlipidemia status post left carotid endarterectomy, anxiety, fibromyalgia, gastroesophageal reflux disease, osteoarthritis and multiple other medical issues, status post direct anterior left total hip arthroplasty. Tolerated procedure well. Ambulating with PT, tolerated exertion well. Denies lightheadedness or dizziness. Reports initially had mild nausea post op, which has resolved. Passing flatus, no bowel movement. Pain controlled. Labs pending. Denies chest pain, palpitations or shortness of breath. Afebrile. Review of Systems Constitutional: Denied any fatigue denied any fever. Cardio vascular: denied any chest pain, palpitations Gastrointestinal denied any nausea vomiting Pulmonary: Denied any shortness of breath cough Neurologic denied any new focal deficits ROS Statement: Those systems with pertinent positive or pertinent negative responses have been documented in the HPI. ROS Other: All systems not noted in ROS Statement are negative. Past Medical History Past Medical History: Coronary Artery Disease (CAD), Cancer, Chest Pain / Angina, Fibromyalgia, GERD/Reflux, Hyperlipidemia, Hypertension, Osteoarthritis (OA) Additional Past Medical History / Comment(s): HX RIGHT BREAST CANCER 12 YRS AGO, FREQUENT UTI'S. History of Any Multi-Drug Resistant Organisms: None Reported Past Surgical History: Appendectomy, Breast Surgery, Cholecystectomy, Heart Catheterization With Stent, Hernia Repair, Joint Replacement, Orthopedic Surgery Additional Past Surgical History / Comment(s): RODNEY FUNDOPLASTY FOR HIATAL HERNIA. RIGHT MASTECTOMY. BILATERAL CATARACTS. Right knee replacement, left rotator cuff, right hip replacement, PAIN CLINIC PROCEDURES, 4 CARDIAC STENTS 01/2019 & 10/2018, 1 stent in neck 11/12/20, LEFT CAROTID ENDARTERECTOMY (JUL 2019), LEFT BREAST BIOPSY. Past Anesthesia/Blood Transfusion Reactions: Previous Problems w/ Anesthesia, Motion Sickness Additional Past Anesthesia/Blood Transfusion Reaction / Comm: Had "terrible hallucinations" after knee surgery. "Takes longer to come out...real bad." Date of Last Stent Placement:: 11/12/20 Past Psychological History: Anxiety Additional Psychological History / Comment(s): . Smoking Status: Former smoker Past Alcohol Use History: None Reported Additional Past Alcohol Use History / Comment(s): STARTED SMOKING AT AGE 17 QUIT IN 1994. Smoked 1-2 PPD. Past Drug Use History: None Reported - Past Family History Mother Family Medical History: Coronary Artery Disease (CAD) Additional Family Medical History / Comment(s): . Father Family Medical History: Myocardial Infarction ([place]) Medications and Allergies Home Medications Medication Instructions Recorded Confirmed Type Escitalopram [Lexapro] 10 mg PO QAM 09/12/14 08/16/21 History Meloxicam [Mobic] 15 mg PO QAM 01/03/18 08/09/21 History Aspirin 81 mg PO QAM 11/15/18 08/09/21 History Cholecalciferol (Vitamin D3) 2,000 unit PO DAILY 11/15/18 08/09/21 History [Vitamin D3] Nitroglycerin Sl Tabs [Nitrostat] 0.4 mg SUBLINGUAL Q5M PRN #25 tab 11/21/18 08/16/21 Rx Atorvastatin [Lipitor] 80 mg PO QAM 10/26/20 08/16/21 History Metoprolol Succinate [Toprol XL] 50 mg PO HS 10/26/20 08/16/21 History Calcium Carbonate/Vitamin D3 1 each PO DAILY 08/09/21 08/09/21 History [Calcium 600 mg-Vit D3 5 mcg (200 unit)] Clopidogrel [Plavix] 75 mg PO QAM 08/09/21 08/16/21 History Pantoprazole [Protonix] 40 mg PO DAILY 08/16/21 08/16/21 History Ferrous Sulfate [Iron (65 MG 325 mg PO BID #30 tab 08/17/21 Rx Elemental)] HYDROcodone/APAP 5-325MG [[place] 1 - 2 tab PO Q6HR PRN #42 tab 08/17/21 Rx 5-325] Allergies Allergy/AdvReac Type Severity Reaction Status Date / Time adhesive tape Allergy Itching Verified 08/09/21 10:47 ciprofloxacin [From Cipro] Allergy Rash/Hives. Verified 08/09/21 10:47 HOT FLASHES. ciprofloxacin HCl Allergy Rash/Hives. Verified 08/09/21 10:47 [From Cipro] HOT FLASHES. Influenza Virus Vaccines Allergy redness/ Verified 08/09/21 10:47 Sulfa (Sulfonamide Allergy Rash/Hives. Verified 08/09/21 10:47 Antibiotics) HOT FLASHES, skin turns red Physical Exam Vitals: Vital Signs Temp Pulse Pulse Resp BP Pulse Ox 08/17/21 08:00 98 F 59 L 16 130/80 97 08/17/21 02:00 98.0 F 96 17 130/55 92 L 08/16/21 19:58 86 17 08/16/21 19:34 98.1 F 86 17 124/57 93 L 08/16/21 14:00 97.8 F 73 16 95/56 91 L Intake and Output 08/16/21 08/17/21 08/17/21 22:59 06:59 14:59 Intake Total 1480 Balance 1480 Intake: Intake, IV Titration 1000 Amount Lactated Ringers 1,000 ml 1000 @ 70 mls/hr IV .[id number] KOURTNEY Rx#:[id number] Oral 480 Other: # Voids 1 Physical Exam: Alert and oriented 3, no acute distress Head: Atraumatic normocephalic. HEENT:[Neck is supple.] [No neck masses.] [No thyromegaly.] [Neck supple, no JVD Chest: [Clear throughout, no crackles, no rhonchi, no wheezes.]symmetrical chest expansion Cardiac Exam: [Normal S1 and S2, no S3 gallop, no murmur.] Abdomen: [Soft, nontender, no megaly, no rebound, no guarding, normal bowel sounds.] Extremities: Left lower extremity dressing clean dry and intact, minimal edema/ecchymosis. No clubbing, no calf tenderness, positive DP ,motor and strength grossly intact. Neurological Exam: No nerves II through XII grossly intact, No focal deficit. Psychiatric: Normal mood affect and normal mental status examination. Skin: Warm and dry, No rashes. Results CBC & Chem 7: 08/17/21 06:51 Labs: Abnormal Lab Results - Last 24 Hours (Table) 08/17/21 Range/Units 06:51 WBC 15.80 H (4.50-10.00) X 10*3/uL RBC 3.08 L (4.10-5.20) X 10*6/uL Hgb 9.6 L (12.0-15.0) g/dL Hct 31.1 L (37.2-46.3) % MCV 101.0 H (80.0-97.0) fL MCHC 30.9 L (32.0-37.0) g/dL Immature Gran # 0.06 H (0.00-0.04) X 10*3/uL Neutrophils # 12.99 H (1.80-7.70) X 10*3/uL Monocytes # 1.20 H (0.20-1.00) X 10*3/uL Eosinophils # 0 L (0.04-0.35) X 10*3/uL Assessment and Plan Assessment: Left hip osteoarthritis, status post direct anterior left total arthroplasty Acute postoperative blood loss anemia, expected surgical outcome CAD, previous stents Hypertension Hyperlipidemia Gastroesophageal reflux disease History of breast cancer and previous mastectomy Remote smoking history [id number] smoker, presently does not smoke, quit smoking over 25 years ago. Degenerative joint disease History of fibromyalgia History of multiple surgeries including Rodney fundoplasty. Plan: Continue on current medication regime ,monitoring and symptomatic treatment. Labs pending. Increase ambulation with PT as tolerated. Pain management/DVT prophylaxis as per orthopedic surgery. Medically cleared for discharge. Follow-up with PCP, Dr. Dodge in 1 week. Repeat CBC with BMP in 3 days outpatient. Thank you Dr. Bhatt for the consult. The impression and plan of care has been dictated as directed. : I performed a history and examination of this patient, discussed the same with the dictator. I agree with the dictator's note ,documented as a scribe. Any additional findings or plans will be noted.
== END 2021-08-17 13:30 | disposition home health service (06) ==
LOC: OR 06:19 → 4SSUR 12:08 → OR 08-17 13:30
PROVIDERS: ATTEND Orthopaedic Surgery
DX: M16.12 Unilateral primary osteoarthritis, left hip (principal); I25.10 Atherosclerotic heart disease of native coronary artery without angina pectoris; I10 Essential (primary) hypertension; E78.5 Hyperlipidemia, unspecified; Z79.899 Other long term (current) drug therapy; Z88.1 Allergy status to other antibiotic agents; Z88.0 Allergy status to penicillin; Z88.2 Allergy status to sulfonamides; M79.7 Fibromyalgia; K21.9 Gastro-esophageal reflux disease without esophagitis; Z87.891 Personal history of nicotine dependence; Z85.3 Personal history of malignant neoplasm of breast; Z79.82 Long term (current) use of aspirin; Z95.5 Presence of coronary angioplasty implant and graft
CPT/HCPCS: 97161; 97165; 86900; 86901; 85025; 86850; 87635; 73501; 27130; C1776; J0171; J1100; J0690 ×2; J2405; J1650; J1885; J2795; J0735; J1170; 88305; 88311

== ENCOUNTER → 2021-12-14 | Outpatient (CLI) | payer MEDICARE ==
--- NOTE | 2021-12-15 09:28 | USB ---
Reason for exam: clinical finding. History: Patient is postmenopausal, has history of breast cancer at age 62, and is nulliparous. Benign MG stereo VAD BX LT of the left breast, September 25, 2018. Mastectomy of the right breast, 2006. 3 excisional biopsies of the left breast. Took estrogen for 5 years. Took progesterone for 5 years. Taking antineoplastic for 4 years beginning at age 62. Indicated problem(s): pain in both breasts. Physical Findings: Nurse did not find any significant physical abnormalities on exam. US Breast Axilla RT Right breast axilla ultrasound demonstrates a 0.9 x 0.9 x 0.8cm lymph node at the axilla versus 1.2 x 0.8 x 0.7cm, 2.5mm cortex. Normal sized node. Left breast axilla scanned for comparison and pain. No abnormality seen. These results were verbally communicated with the patient and result sheet given to the patient on 12/14/21. ASSESSMENT: Benign, BI-RAD 2 RECOMMENDATION: Routine screening mammogram of both breasts in 6 months. Back on schedule for May 2022. Manage on a clinical basis with regard to left axilla pain and right axilla pain.
== END | disposition home or self-care (01) ==
LOC: RADUSWWP 14:16
PROVIDERS: ATTEND Family Medicine
DX: R92.8 Other abnormal and inconclusive findings on diagnostic imaging of breast (principal); Z78.0 Asymptomatic menopausal state; Z85.3 Personal history of malignant neoplasm of breast

== ENCOUNTER 2022-05-15 14:46 | Emergency (ER) | payer MEDICARE ==
[2022-05-15 14:50] VITALS: TEMP 98
[2022-05-15] MEDS ORDERED: diazePAM 2 MG TAB PO STA (15:54)
--- NOTE | 2022-05-15 16:40 | CT ---
EXAMINATION TYPE: CT cervical spine wo con CT DLP: 402.4 mGycm, Automated exposure control for dose reduction was used. DATE OF EXAM: 05/15/2022 4:25 PM COMPARISON: CT angiogram neck 03/09/2021.. CLINICAL INDICATION:Female, 77 years old with history of pain; neck pain and stiffness x3 days, diffi culty moving side to side TECHNIQUE: Axial CT images from the skull base to the inferior aspect of T2 we obtained without intra venous contrast. Coronal and sagittal reformatted images were also reviewed. FINDINGS: Fracture: None. Osseous structures: Multilevel degenerative disc disease changes with endplate spurring and disc oste ophyte complex's. Vertebral alignment: Within normal limits. Spinal canal/Neural Foramina: No evidence of significant spinal canal narrowing. No evidence for sign ificant neural foraminal stenosis.Neck soft tissues: Prevertebral soft tissues are within normal limi ts. Other: The airway is patent. The lung apices are clear. IMPRESSION: 1. No evidence of cervical spine fracture. 2. Mild multilevel degenerative disc disease.
--- NOTE | 2022-05-15 17:49 | ED ---
General Adult HPI - General Chief complaint: Neck Pain/Injury Stated complaint: Neck pain,difficulty swallowing Time Seen by Provider: 05/15/22 15:30 Source: patient, RN notes reviewed, old records reviewed Mode of arrival: ambulatory Limitations: no limitations - History of Present Illness Initial comments: Shows a 77-year-old female who presents emergency Department complaining of worsening bilateral neck pain. States it is over the neck muscles on either side of her neck. Goes down into her shoulders and up to the base of her skull. States it is hinging her inability to turn her neck secondary to pain. Denies any midline spinal tenderness palpation. Denies any radiation of the pain down either arm. His no numbness. This is a mild headache when the pain is severe. Has noticed it over the last few days, and she's Been camping and she believes that may have triggered it. No history of this. Presents emergency department for further evaluation. Denies any blurry vision, weakness, numbness otherwise. Unknown palliative or provocative factors. - Related Data Home Medications Medication Instructions Recorded Confirmed Escitalopram [Lexapro] 10 mg PO QAM 09/12/14 08/16/21 Meloxicam [Mobic] 15 mg PO QAM 01/03/18 08/09/21 Aspirin 81 mg PO QAM 11/15/18 08/09/21 Cholecalciferol (Vitamin D3) 2,000 unit PO DAILY 11/15/18 08/09/21 [Vitamin D3] Atorvastatin [Lipitor] 80 mg PO QAM 10/26/20 08/16/21 Metoprolol Succinate [Toprol XL] 50 mg PO HS 10/26/20 08/16/21 Calcium Carbonate/Vitamin D3 1 each PO DAILY 08/09/21 08/09/21 [Calcium 600 mg-Vit D3 5 mcg (200 unit)] Clopidogrel [Plavix] 75 mg PO QAM 08/09/21 08/16/21 Pantoprazole [Protonix] 40 mg PO DAILY 08/16/21 08/16/21 Previous Rx's Medication Instructions Recorded Nitroglycerin Sl Tabs [Nitrostat] 0.4 mg SUBLINGUAL Q5M PRN #25 tab 11/21/18 Ferrous Sulfate [Iron (65 MG 325 mg PO BID #30 tab 08/17/21 Elemental)] HYDROcodone/APAP 5-325MG [[place] 1 - 2 tab PO Q6HR PRN #42 tab 08/17/21 5-325] methocarbamoL [Robaxin-750] 750 mg PO TID PRN 7 Days #21 tab 05/15/22 Allergies Allergy/AdvReac Type Severity Reaction Status Date / Time adhesive tape Allergy Itching Verified 05/15/22 14:50 ciprofloxacin [From Cipro] Allergy Rash/Hives. Verified 05/15/22 14:50 HOT FLASHES. ciprofloxacin HCl Allergy Rash/Hives. Verified 05/15/22 14:50 [From Cipro] HOT FLASHES. Influenza Virus Vaccines Allergy redness/ Verified 05/15/22 14:50 Sulfa (Sulfonamide Allergy Rash/Hives. Verified 05/15/22 14:50 Antibiotics) HOT FLASHES, skin turns red Review of Systems ROS Statement: Those systems with pertinent positive or pertinent negative responses have been documented in the HPI. Review of Systems: CONST: Denies fever EYES: Denies blurry vision ENT: Denies nasal congestion C/V: Denies Chest pain RESP: Denies shortness of breath GI: Denies abdominal pain : Denies dysuria SKIN: Denies rash. MSK: Endorses lateral neck pain. NEURO: Denies headache ROS Other: All systems not noted in ROS Statement are negative. Past Medical History Past Medical History: Coronary Artery Disease (CAD), Cancer, Chest Pain / Angina, Fibromyalgia, GERD/Reflux, Hyperlipidemia, Hypertension, Osteoarthritis (OA) Additional Past Medical History / Comment(s): Hx hiatal hernia (surgery), RIGHT BREAST CA., FREQUENT UTI'S, History of Any Multi-Drug Resistant Organisms: None Reported Past Surgical History: Appendectomy, Breast Surgery, Cholecystectomy, Heart Catheterization With Stent, Hernia Repair, Joint Replacement, Orthopedic Surgery Additional Past Surgical History / Comment(s): RODNEY FUNDOPLASTY. RIGHT MASTECTOMY. EDMUNDO CATARACTS. rt knee replacement, left rotator cuff, rt hip replacement, PAIN CLINIC PROCEDURES, CARDIAC STENTS 01/2019 & 10/2018, 1 stent circ 11/12/20, LEFT CAROTID ENDARTERECTOMY (JUL 2019), LEFT BREAST BX. Past Anesthesia/Blood Transfusion Reactions: Previous Problems w/ Anesthesia, Motion Sickness Additional Past Anesthesia/Blood Transfusion Reaction / Comment(s): Had "terrible hallucinations" after knee surgery. "takes longer to come out...real bad' Date of Last Stent Placement:: 01/2019 Past Psychological History: Anxiety Smoking Status: Former smoker Past Alcohol Use History: Rare - Past Family History Mother Family Medical History: Coronary Artery Disease (CAD) Additional Family Medical History / Comment(s): . Father Family Medical History: Myocardial Infarction ([place]) General Exam - General Exam Comments Initial Comments: General: Appears in no acute distress. HEAD: Normal with no signs of head trauma. EYES: PERRLA, EOMI, conjunctiva normal, no discharge. It'll see millimeters and equal bilaterally. ENT: Hearing grossly intact, normal oropharynx. No stridor. RESPIRATORY: Clear breath sounds bilaterally. No wheezes, rales, or rhonchi. C/V: Regular rate and rhythm. S1 and S2 auscultated, no edema, peripheral pulses 2+ and intact throughout ABD: Abd is nondistended. EXT: Reduced range of motion of the neck secondary to pain. Tender to palpation over bilateral trapezius muscles lines. Extend from shoulders to base of skull. No midline cervical, thoracic, lumbar spine tenderness to palpation. SKIN: No rashes or lesions observed on exposed skin. NEURO: Alert and oriented x 4. Cranial nerves II-XII intact. No focal sensory or strength deficits. GCS of 15. NIH of 0. Limitations: no limitations Course Vital Signs 05/15/22 05/15/22 14:48 17:53 Temperature 98 F Pulse Rate 108 H 85 Respiratory 16 18 Rate Blood Pressure 128/65 124/61 O2 Sat by Pulse 96 96 Oximetry Medical Decision Making - Medical Decision Making Based on the patient's presentation and physical exam, she is likely experiencing muscle strains of her neck. She is uncertain if anything else but it causes, I did offer CT cervical spine which she accepted. She'll be provided with Valium for pain control as well. She was in agreement this plan. CT cervical spine shows no acute process. It does show chronic degenerative disc disease. I discussed the findings with the patient. I believe it is safer to be discharged home with close follow-up with her PCP. She was in agreement this plan. Pain is somewhat improved at this time. We'll provide her with a prescription for muscle relaxers. I will provide the patient with a prescription for Robaxin. I instructed the patient to follow up with their PCP in the next 1-3 days. I explained that the patient should return to the emergency department if they experience any wo rsening symptoms. Strict return precautions were discussed with the patient. The patient expressed understanding of these instructions. I answered all questions that the patient had. The patient was discharged home in good condition with their prescriptions and follow up information. Disposition Clinical Impression: Strain of neck muscle Disposition: HOME SELF-CARE Condition: Good Instructions (If sedation given, give patient instructions): Cervical Strain (ED) Prescriptions: methocarbamoL [Robaxin-750] 750 mg PO TID PRN 7 Days #21 tab PRN Reason: Pain Is patient prescribed a controlled substance at d/c from ED?: No Referrals: Bobby Dodge DO [Primary Care Provider] - 1-2 days Time of Disposition: 17:30
[2022-05-15 17:59] VITALS: BP 124/61; PULSE 85; RESP 18
== END 2022-05-15 17:54 | disposition home or self-care (01) ==
LOC: EC 14:46
DX: S16.1XXA Strain of muscle, fascia and tendon at neck level, initial encounter (principal); E78.5 Hyperlipidemia, unspecified; K21.9 Gastro-esophageal reflux disease without esophagitis; Z79.83 Long term (current) use of bisphosphonates; Z87.891 Personal history of nicotine dependence; Z82.49 Family history of ischemic heart disease and other diseases of the circulatory system; Z91.048 Other nonmedicinal substance allergy status; Z88.5 Allergy status to narcotic agent; Z88.7 Allergy status to serum and vaccine; Z88.2 Allergy status to sulfonamides
CPT/HCPCS: 72125; 99284

== ENCOUNTER → 2022-06-20 | Outpatient (CLI) | payer MEDICARE ==
--- NOTE | 2022-06-20 10:55 | MM ---
Reason for Exam: Hx of breast cancer, mastectomy. Last screening mammogram was performed 12 month(s) ago. Patient History: Menarche at age 11. Patient has no children. Postmenopausal. Breast cancer, right, age 62. Patient used Estrogen for 5 years. Patient used Progesterone for 5 years. Excisional Biopsy on the Left side. Excisional Biopsy on the Left side. Excisional Biopsy on the Left side. 2006, Mastectomy on the Right side. 09/25/2018, Benign Core Biopsy on the left side. Prior Study Comparison: 08/01/2006 Screening Mammogram, [facility]. 07/18/2007 Screening Mammogram, [facility]. 08/30/2016 Left Diagnostic Mammogram, [facility]. 08/11/2017 Left Diagnostic Mammogram, [facility]. 09/05/2018 Left Diagnostic Mammogram, [facility]. 03/28/2019 Left Diagnostic Mammogram, [facility]. 06/03/2020 Left Diagnostic Mammogram, [facility]. 06/09/2021 Left Diagnostic Mammogram, [facility]. Tissue Density: Left: The breast tissue is heterogeneously dense. This may lower the sensitivity of mammography. Findings: Analyzed By CAD. Benign-appearing calculations and left breast biopsy clip. The right breast is surgically absent. No new suspicious masses calcifications or distortions. Overall Assessment: Benign, BI-RAD 2 Management: Screening Mammogram of the left breast. A clinical breast exam by your physician is recommended on an annual basis and results should be correlated with mammographic findings. This exam should not preclude additional follow-up of suspicious palpable abnormalities. Results were given to the patient verbally at the time of exam. Electronically signed and approved by: Michael Johnson DO
== END | disposition home or self-care (01) ==
LOC: RADMAMWWP 10:13
PROVIDERS: ATTEND Family Medicine
DX: R92.8 Other abnormal and inconclusive findings on diagnostic imaging of breast (principal); Z85.3 Personal history of malignant neoplasm of breast; Z78.0 Asymptomatic menopausal state
CPT/HCPCS: 77065; G0279; 77061

== ENCOUNTER → 2022-11-21 | Outpatient (CLI) | payer MEDICARE ==
--- NOTE | 2022-11-21 11:55 | XR ---
EXAMINATION TYPE: XR chest 2V DATE OF EXAM: 11/21/2022 COMPARISON: NONE TECHNIQUE: PA and lateral views submitted. HISTORY: COPD FINDINGS: The lungs are clear and there is no pneumothorax, pleural effusion, or focal pneumonia. Heart size normal and no overt failure. Osseous structures demonstrate hypertrophic and degenerative changes of the spine. Atherosclerotic change aorta. Hyperinflation suggests COPD. Hypertrophic and degenerative change of the spine. IMPRESSION: 1. No acute process. 2. Mild COPD.
== END | disposition home or self-care (01) ==
LOC: RADXRMAIN 11:23
PROVIDERS: ATTEND Family Medicine
DX: J44.9 Chronic obstructive pulmonary disease, unspecified (principal); I50.9 Heart failure, unspecified
CPT/HCPCS: 71046

== ENCOUNTER → 2023-06-21 | Outpatient (CLI) | payer MEDICARE ==
--- NOTE | 2023-06-21 10:51 | MM ---
Reason for Exam: Hx of breast cancer, mastectomy. Last screening mammogram was performed 12 month(s) ago. Patient History: Menarche at age 11. Patient has no children. Postmenopausal. Breast cancer, right, age 62. Patient used Estrogen for 5 years. Patient used Progesterone for 5 years. Excisional Biopsy on the Left side. Excisional Biopsy on the Left side. Excisional Biopsy on the Left side. 2006, Mastectomy on the Right side. 09/25/2018, Benign Core Biopsy on the left side. Prior Study Comparison: 06/03/2020 Left Diagnostic Mammogram, [facility]. 06/09/2021 Left Diagnostic Mammogram, [facility]. 06/20/2022 Left MG 3D diag mammo w/cad , [facility]. Tissue Density: Left: There are scattered fibroglandular densities. Findings: Analyzed By CAD. Grouped coarse calcifications are unchanged. No significant change from prior exams. Overall Assessment: Benign, BI-RAD 2 Management: Screening Mammogram of the left breast in 1 year. Results were given to the patient verbally at the time of exam. Patient should continue monthly self-breast exams. A clinical breast exam by your physician is recommended on an annual basis. This exam should not preclude additional follow-up of suspicious palpable abnormalities. Electronically signed and approved by: Sumaya Hassan M.D. Radiologist
== END | disposition home or self-care (01) ==
LOC: RADMAMWWP 09:28
PROVIDERS: ATTEND Family Medicine
DX: R92.8 Other abnormal and inconclusive findings on diagnostic imaging of breast (principal); Z85.3 Personal history of malignant neoplasm of breast; Z78.0 Asymptomatic menopausal state; Z90.11 Acquired absence of right breast and nipple
CPT/HCPCS: 77065; G0279; 77061

== ENCOUNTER → 2023-10-04 | Outpatient (CLI) | payer MEDICARE ==
[2023-10-04 10:40] VITALS: BP 139/63; PULSE 68; RESP 16; TEMP 98.2
--- NOTE | 2023-10-04 12:50 | P.PAINPG ---
PQRS Measure Charge Sheet Comment: HISTORY OF PRESENT ILLNESS: A 78 yr old female as a referral from Dr Bobby Dodge presents today w severe and chronic LBP secondary to DDD, spondylosis and facet arthropathy without myelopathy for evaluation. Pt states pain level is provoked at 8 /10 in intensity, constant, localized in the lower lumbar spine, predominantly axial, burning in character w occasional shooting pain towards the hip and groin. Pain is provoked by walking/ standing for periods >10 min. Pain is alleviated by heat, ice, medications (Tyl), topical, PT in 2018, chiropractic treatments monthly in 2020, repositioning and rest. Oswestry axial pain score at 24. PMH: OA, CAD, Breast CA, Angina, Fibromyalgia, GERD, Hyperlipidemia, HTN, Anxiety PSH: R Breast Masectomy, L Breast Biopsy, HH Surgery, Appendectomy, Cholecystectomy, Heart Catheterization With Stent x 2 (2019), Hernia Repair, R Knee Replacement, L RCT Repair, R Hip Replacement, Cindy Fundoplasty, BL Cataract Extraction, L Carotid Endarectomy (2019) SH: Former tobacco user, Rare ETOH use, No illicit drug use FH: Mo- CAD. Fa- PA All: See list Meds: See list REVIEW OF ORGAN SYSTEMS: CONSTITUTIONAL: No fevers or chills. No recent weight loss. NEUROLOGICAL: + numbness and tingling along the distal extremities. No seizure disorders or headaches. MUSCULOSKELETAL: + pain PSYCHIATRIC: Denies current depression or suicidal thoughts. Physical Examinations : Constitutional : Cooperative , not in acute distress . Neurologic : Cranial nerve II to XII intact. No focal neurological deficits. Psychiatric : alert & oriented x 3. Matching mood & appropriate affect. Judgment & insight intact. Musculoskeletal : Cervical Spine Motor strength in the deltoid and biceps: Normal right side. Normal Left side Motor strength biceps and the wrist extensors: Normal right side . Normal left side Motor strength in the triceps muscle: Normal right side. Normal left side Deep tendon reflexes: Normal at the biceps. Normal at Brachioradialis. Normal at triceps Vertebral body tenderness to deep palpation over Cervical facet loading test: positive bilaterally Spurling test: positive bilaterally Neck distraction test: positive bilaterally Rancho sign: positive bilaterally Lumbar spine Motor strength lower extremities ,thigh and legs 5/5 Right side , 5/5 Left side Deep tendon reflexes : Normal Knee Jerk. Normal Ankle Jerk Vertebral body tenderness over L3 Pacheco Test positive over BL L3-L4 Lumbar facet Loading Test: positive Right / positive Left Range of motion of the lumbar spine Flexion 30 degrees, extension 10 degrees Straight Leg Raise test: Left/ Right positive at degree Duane test: positive right / positive left. Severe tenderness over the Sacroiliac joint on the Right / Left sides Gaenslen test: positive bilaterally Seated flexion test: positive bilaterally. Sacral spine : Severe tenderness over the Sacroiliac joint: right side / left side Range of motion: Flexion of the lumbar spine <60 degrees Range of motion: Extension of the lumbar spine <20 degrees Gaenslen's Test positive Duane test: positive right side / left side Thigh Thrust Test Sacral Thrust Test Imaging: CT non contrast of the lumbar spine from 05/15/22 reviewed Assessment/ Plan : Lumbar DDD Recommendation of PT x 6 wks M51.36. All questions answered. I have spent greater than 30 minutes on patient care today. Dr Morales was available by phone for the evaluation of this patient. The time was used to review the medical records including relevant urine studies and Prescription history (MAPs), review of the available imaging, evaluation and examination of the patient, coordination of care with the medical staff and if applicable referring physicians, as well as creation of the medical record PQRS Narrative: Smoking Status Former smoker Hx Alcohol Use (MH) No Home Medications: Ambulatory Orders Escitalopram [Lexapro] 10 mg PO QAM 09/12/14 Meloxicam [Mobic] 15 mg PO QAM 01/03/18 Aspirin 81 mg PO QAM 11/15/18 Cholecalciferol (Vitamin D3) [Vitamin D3] 2,000 unit PO DAILY 11/15/18 Nitroglycerin Sl Tabs [Nitrostat] 0.4 mg SUBLINGUAL Q5M PRN #25 tab 11/21/18 Atorvastatin [Lipitor] 80 mg PO QAM 10/26/20 Metoprolol Succinate [Toprol XL] 50 mg PO HS 10/26/20 Calcium Carbonate/Vitamin D3 [Calcium 600 mg-Vit D3 5 mcg (200 unit)] 1 each PO DAILY 08/09/21 Clopidogrel [Plavix] 75 mg PO QAM 08/09/21 Pantoprazole [Protonix] 40 mg PO DAILY 08/16/21 Ferrous Sulfate [Iron (65 MG Elemental)] 325 mg PO BID #30 tab 08/17/21 HYDROcodone/APAP 5-325MG [[place] 5-325] 1 - 2 tab PO Q6HR PRN #42 tab 08/17/21 methocarbamoL [Robaxin-750] 750 mg PO TID PRN 7 Days #21 tab 05/15/22 diazePAM [Valium] 5 mg PO DAILY PRN 1 Days #2 tab 10/04/23 Controlled Substance Measures - Controlled Substance Measures Is patient prescribed a controlled substance at discharge?: No
== END ==
LOC: PNWHC3 09:10
PROVIDERS: ATTEND Specialist
DX: M47.816 Spondylosis without myelopathy or radiculopathy, lumbar region (principal); M51.36 Other intervertebral disc degeneration, lumbar region; Z91.048 Other nonmedicinal substance allergy status; Z88.2 Allergy status to sulfonamides; Z88.7 Allergy status to serum and vaccine; Z88.1 Allergy status to other antibiotic agents; Z87.891 Personal history of nicotine dependence
CPT/HCPCS: 99211

== ENCOUNTER → 2023-12-06 | Outpatient (CLI) | payer MEDICARE ==
[2023-12-06 11:12] VITALS: BP 116/62; PULSE 72; RESP 15; TEMP 98.6
--- NOTE | 2023-12-06 11:57 | XR ---
EXAMINATION TYPE: XR lumbar spine 2 or 3V DATE OF EXAM: 12/06/2023 10:55 AM CLINICAL INDICATION:Female, 78 years old with history of [id number]; PHH COMPARISON: None TECHNIQUE: XR lumbar spine 2 or 3V - Frontal, lateral and coned in L5-S1 lateral views of the spine. FINDINGS: No evidence of any acute osseous pathology. No evidence of loss of vertebral body height i s seen. There is normal alignment of the lumbar vertebral bodies. Mild to moderate scattered disc spa ce narrowing. Multilevel marginal osteophyte formation throughout the visualized spine. There is face t joint arthropathy throughout the spine. Scattered at least moderate neural foraminal stenosis worse at L5-S1. Atherosclerosis of the arterial vasculature. IMPRESSION: 1. No acute fracture. 2. Moderate multilevel disc degeneration.
--- NOTE | 2023-12-06 14:28 | P.PAINPG ---
PQRS Measure Charge Sheet Comment: HISTORY OF PRESENT ILLNESS: A 78 yr old female presents today w severe and chronic LBP secondary to DDD, spondylosis and facet arthropathy without myelopathy for evaluation. Pt states pain level is provoked at 7 /10 in intensity, constant, localized in the lower lumbar spine, predominantly axial, burning in character w occasional shooting pain towards the hip and groin. Pain is provoked by walking/ standing for periods >10 min. Pain is alleviated by heat, ice, medications, topical, PT x 6 wks which ended in Nov 2023, chiropractic treatments monthly in 2020, repositioning and rest. Oswestry axial pain score at 23. Interventional procedures include Medications include ASA, Mobic, Robaxin, Dunlap 5/325mg #60 REVIEW OF ORGAN SYSTEMS: CONSTITUTIONAL: No fevers or chills. No recent weight loss. NEUROLOGICAL: + numbness and tingling along the distal ext remities. No seizure disorders or headaches. MUSCULOSKELETAL: + pain PSYCHIATRIC: Denies current depression or suicidal thoughts. Physical Examinations : Constitutional : Cooperative , not in acute distress . Neurologic : Cranial nerve II to XII intact. No focal neurological deficits. Psychiatric : alert & oriented x 3. Matching mood & appropriate affect. Judgment & insight intact. Musculoskeletal : Cervical Spine Motor strength in the deltoid and biceps: Normal right side. Normal Left side Motor strength biceps and the wrist extensors: Normal right side . Normal left side Motor strength in the triceps muscle: Normal right side. Normal left side Deep tendon reflexes: Normal at the biceps. Normal at Brachioradialis. Normal at triceps Vertebral body tenderness to deep palpation over Cervical facet loading test: positive bilaterally Spurling test: positive bilaterally Neck distraction test: positive bilaterally Rancho sign: positive bilaterally Lumbar spine Motor strength lower extremities ,thigh and legs 5/5 Right side , 5/5 Left side Deep tendon reflexes : Normal Knee Jerk. Normal Ankle Jerk Vertebral body tenderness over L3 Pacheco Test positive over BL L3-L4 Lumbar facet Loading Test: positive Right / positive Left Range of motion of the lumbar spine Flexion 30 degrees, extension 10 degrees Straight Leg Raise test: Left/ Right positive at degree Duane test: positive right / positive left. Severe tenderness over the Sacroiliac joint on the Right / Left sides Gaenslen test: positive bilaterally Seated flexion test: positive bilaterally. Sacral spine : Severe tenderness over the Sacroiliac joint: right side / left side Range of motion: Flexion of the lumbar spine <60 degrees Range of motion: Extension of the lumbar spine <20 degrees Gaenslen's Test positive Duane test: positive right side / left side Thigh Thrust Test Sacral Thrust Test Imaging: CT non contrast of the cervical spine from 05/15/22 reviewed Assessment/ Plan : Lumbar DDD Recommendation of lumbar x ray M51.36 May need additional testing if indicated. All questions answered. I have spent greater than 30 minutes on patient care today. Dr Morales was available by phone for the evaluation of this patient. The time was used to review the medical records including relevant urine studies and Prescription history (MAPs), review of the available imaging, evaluation and examination of the patient, coordination of care with the medical staff and if applicable referring physicians, as well as creation of the medical record PQRS Narrative: Smoking Status Former smoker Hx Alcohol Use (MH) No Home Medications: Ambulatory Orders Escitalopram [Lexapro] 10 mg PO QAM 09/12/14 Meloxicam [Mobic] 15 mg PO QAM 01/03/18 Aspirin 81 mg PO QAM 11/15/18 Cholecalciferol (Vitamin D3) [Vitamin D3] 2,000 unit PO DAILY 11/15/18 Nitroglycerin Sl Tabs [Nitrostat] 0.4 mg SUBLINGUAL Q5M PRN #25 tab 11/21/18 Atorvastatin [Lipitor] 80 mg PO QAM 10/26/20 Metoprolol Succinate [Toprol XL] 50 mg PO HS 10/26/20 Calcium Carbonate/Vitamin D3 [Calcium 600 mg-Vit D3 5 mcg (200 unit)] 1 each PO DAILY 08/09/21 Clopidogrel [Plavix] 75 mg PO QAM 08/09/21 Pantoprazole [Protonix] 40 mg PO DAILY 08/16/21 Ferrous Sulfate [Iron (65 MG Elemental)] 325 mg PO BID #30 tab 08/17/21 HYDROcodone/APAP 5-325MG [Dunlap 5-325] 1 - 2 tab PO Q6HR PRN #42 tab 08/17/21 methocarbamoL [Robaxin-750] 750 mg PO TID PRN 7 Days #21 tab 05/15/22 Controlled Substance Measures - Controlled Substance Measures Is patient prescribed a controlled substance at discharge?: No
== END ==
LOC: PNWHC3 09:53
PROVIDERS: ATTEND Specialist
DX: M51.36 Other intervertebral disc degeneration, lumbar region (principal); M47.816 Spondylosis without myelopathy or radiculopathy, lumbar region; Z79.82 Long term (current) use of aspirin; Z91.048 Other nonmedicinal substance allergy status; Z88.1 Allergy status to other antibiotic agents; Z88.2 Allergy status to sulfonamides; Z88.7 Allergy status to serum and vaccine; Z87.891 Personal history of nicotine dependence
CPT/HCPCS: 72100; G0463; 99211

== ENCOUNTER → 2023-12-08 | Outpatient (CLI) | payer MEDICARE ==
--- NOTE | 2023-12-08 10:03 | CT ---
EXAMINATION TYPE: CT lumbar spine wo con CT DLP: 957 mGycm, Automated exposure control for dose reduction was used. DATE OF EXAM: 12/08/2023 9:16 AM COMPARISON: 12/06/2023. CLINICAL INDICATION:Female, 78 years old with history of M51.36 OTHER INTERVERTEBRAL DISC DEGENERATIO N, LUM; PHH, BACK PAIN TECHNIQUE: Multiple axial images were obtained from the midportion of T11 through the sacroiliac audrey nts. Soft tissue and bone windows in coronal and sagittal planes were obtained and reviewed. Contrast used: mL of , (None, if empty). Oral contrast used: (None, if empty). FINDINGS: Alignment: There are 5 lumbar type vertebral bodies within normal alignment. Bone: Multilevel degeneration changes of the spine. There is pseudoarthrosis of the spinous processe s. Facet joint arthropathy disc space narrowing, vacuum disc phenomenon and osteophytes are present. Findings are worse at L5-S1. Discs: T12-L1: No spinal canal or neural foraminal stenosis is identified. L1-L2: No spinal canal or neural foraminal stenosis is identified. L2-L3: No spinal canal or neural foraminal stenosis is identified. L3-L4: Facet joint arthropathy, osteophytes and disc bulging result in mild spinal canal stenosis and mild bilateral neural foraminal stenosis. L4-L5: Facet joint arthropathy and disc bulging result with mild to moderate spinal canal stenosis an d mild bilateral neural foraminal stenosis. L5-S1: Facet joint arthropathy and disc bulging result with mild to moderate spinal canal stenosis an d moderate bilateral neural foraminal stenosis. Other: Right upper quadrant cholecystectomy clips. IMPRESSION: 1. No evidence for spinal fracture. 2. Multilevel degeneration worse at L5-S1. 3. Findings suggestive Baastrup's disease. 4. No evidence for significant spinal canal or neural foraminal stenosis.
== END | disposition home or self-care (01) ==
LOC: RADCTMAIN 08:47
PROVIDERS: ATTEND Specialist
DX: M51.37 Other intervertebral disc degeneration, lumbosacral region (principal); M51.34 Other intervertebral disc degeneration, thoracic region
CPT/HCPCS: 72131

== ENCOUNTER → 2023-12-27 | Outpatient (CLI) | payer MEDICARE ==
[2023-12-27 11:03] VITALS: BP 109/62; PULSE 70; RESP 15; TEMP 98.3
--- NOTE | 2023-12-27 13:57 | P.PAINPG ---
PQRS Measure Charge Sheet Comment: HISTORY OF PRESENT ILLNESS: A 78 yr old female presents today w severe and chronic LBP secondary to DDD, spondylosis and facet arthropathy without myelopathy for evaluation. Pt states pain level is provoked at 6 /10 in intensity, constant, localized in the lower lumbar spine, predominantly axial, burning in character w occasional shooting pain towards the hip and groin. Pain is provoked by walking/ standing for periods >10 min. Pain is alleviated by heat, medications, topical, PT x 6 wks which ended in Nov 2023, chiropractic treatments monthly in 2020, repositioning and rest. Oswestry axial pain score at 23. Interventional procedures include SILVA L4-L5 x1 (2018) Medications include ASA, Mobic, Robaxin, Gilson 5/325mg #60 REVIEW OF ORGAN SYSTEMS: CONSTITUTIONAL: No fevers or chills. No recent weight loss. NEUROLOGICAL: + numbness and tingling along the distal extremities. No seizure disorders or headaches. MUSCULOSKELETAL: + pain PSYCHIATRIC: Denies current depression or suicidal thoughts. Physical Examinations : Constitutional : Cooperative , not in acute distress . Neurologic : Cranial nerve II to XII intact. No focal neurological deficits. Psychiatric : alert & oriented x 3. Matching mood & appropriate affect. Judgment & insight intact. Musculoskeletal : Cervical Spine Motor strength in the deltoid and biceps: Normal right side. Normal Left side Motor strength biceps and the wrist extensors: Normal right side . Normal left side Motor strength in the triceps muscle: Normal right side. Normal left side Deep tendon reflexes: Normal at the biceps. Normal at Brachioradialis. Normal at triceps Vertebral body tenderness to deep palpation over Cervical facet loading test: positive bilaterally Spurling test: positive bilaterally Neck distraction test: positive bilaterally Rancho sign: positive bilaterally Lumbar spine Motor strength lower extremities ,thigh and legs 5/5 Right side , 5/5 Left side Deep tendon reflexes : Normal Knee Jerk. Normal Ankle Jerk Vertebral body tenderness over L4 Pacheco Test positive over BL L3-L4 Lumbar facet Loading Test: positive Right / positive Left Range of motion of the lumbar spine Flexion 30 degrees, extension 10 degrees Straight Leg Raise test: Left/ Right positive at < 35 degrees Duane test: positive right / positive left. Severe tenderness over the Sacroiliac joint on the Right / Left sides Gaenslen test: positive bilaterally Seated flexion test: positive bilaterally. Sacral spine : Severe tenderness over the Sacroiliac joint: right side / left side Range of motion: Flexion of the lumbar spine <60 degrees Range of motion: Extension of the lumbar spine <20 degrees Gaenslen's Test positive Duane test: positive right side / left side Thigh Thrust Test Sacral Thrust Test Imaging: CT non contrast of the cervical spine from 05/15/[address] non contrast of the lumbar spine from 12/08/23 reviewed Assessment/ Plan : Lumbar DDD, Cervical DDD Recommendation of SILVA L4-L5 #1. May need a series of injections for optimal pain relief. Risks, benefits of procedure discussed and pt verbalized understanding. Protocol for discontinuation/ continuation of medications susanne procedure discussed. All questions answered. I have spent greater than 30 minutes on patient care today. Dr Morales was available by phone for the evaluation of this patient. The time was used to review the medical records including relevant urine studies and Prescription history (MAPs), review of the available imaging, evaluation and examination of the patient, coordination of care with the medical staff and if applicable referring physicians, as well as creation of the medical record PQRS Narrative: Smoking Status Former smoker Hx Alcohol Use (MH) No Home Medications: Ambulatory Orders Escitalopram [Lexapro] 10 mg PO QAM 09/12/14 Meloxicam [Mobic] 15 mg PO QAM 01/03/18 Aspirin 81 mg PO QAM 11/15/18 Cholecalciferol (Vitamin D3) [Vitamin D3] 2,000 unit PO DAILY 11/15/18 Nitroglycerin Sl Tabs [Nitrostat] 0.4 mg SUBLINGUAL Q5M PRN #25 tab 11/21/18 Atorvastatin [Lipitor] 80 mg PO QAM 10/26/20 Metoprolol Succinate [Toprol XL] 50 mg PO HS 10/26/20 Calcium Carbonate/Vitamin D3 [Calcium 600 mg-Vit D3 5 mcg (200 unit)] 1 each PO DAILY 08/09/21 Clopidogrel [Plavix] 75 mg PO QAM 08/09/21 Pantoprazole [Protonix] 40 mg PO DAILY 08/16/21 Ferrous Sulfate [Iron (65 MG Elemental)] 325 mg PO BID #30 tab 08/17/21 HYDROcodone/APAP 5-325MG [Gilson 5-325] 1 - 2 tab PO Q6HR PRN #42 tab 08/17/21 methocarbamoL [Robaxin-750] 750 mg PO TID PRN 7 Days #21 tab 05/15/22 Controlled Substance Measures - Controlled Substance Measures Is patient prescribed a controlled substance at discharge?: No
== END ==
LOC: PNWHC3 10:27
PROVIDERS: ATTEND Specialist
DX: M51.36 Other intervertebral disc degeneration, lumbar region (principal); M50.30 Other cervical disc degeneration, unspecified cervical region; Z87.891 Personal history of nicotine dependence; Z79.82 Long term (current) use of aspirin; Z91.048 Other nonmedicinal substance allergy status; Z88.1 Allergy status to other antibiotic agents; Z88.7 Allergy status to serum and vaccine; Z88.2 Allergy status to sulfonamides
CPT/HCPCS: 99211

== ENCOUNTER 2024-01-23 09:57 | Day surgery (SDC) | payer MEDICARE ==
[2024-01-23] MEDS ORDERED: methylPREDNISolone ACETATE 40 MG/ML 1 ML VIAL ONE (10:32)
[2024-01-23] MEDS ORDERED: IOPAMIDOL M200 10 ML VIAL ONE (10:32)
--- NOTE | 2024-01-23 10:40 | P.PCN ---
Date of Procedure: 01/23/24 Description of Procedure: PREOPERATIVE DIAGNOSIS: lumbar radiculopathy POSTOPERATIVE DIAGNOSIS: Lumbar radiculopathy PROCEDURE 1. Lumbar epidural steroid injection under fluoroscopic guidance at the L5-S1 level. 2. Lumbar epidurogram. Imaging: Fluoroscopy was used, images where saved to the medical record ANESTHESIA: Patient re-evaluated immediately prior to sedation local only EBL: Minimal PROCEDURE INDICATION: The patient with low back pain and radiculitis symptoms unresponsive to conservative treatment. Fluoroscopy was used to optimize visualization of the needle placement and to maximize safety. PROCEDURE DESCRIPTION / TECHNIQUE: The patient was seen and identified in the preoperative area. Risks, benefits, complications including but not limited to infections, bleeding, allergic reaction to medications, nerve damage and incomplete pain relief, as well as alternatives to the procedure were discussed with the patient. The patient agreed to proceed with the procedure and signed the consent. IV was started if indicated above, and vital signs were stable. Patient was taken to the OR and time out was completed. The patient was placed in the prone position on procedure table and a pillow was placed under the abdomen to reduce lumbar lordosis. The lumbosacral area was prepped and draped in the usual sterile fashion. Vitals were closely monitored during the procedure. Using anterior-posterior fluoroscopy, the L5-S1 interlaminar space was identified and the skin over this site was marked and then infiltrated with 1% lidocaine subcutaneously. Subsequently, a 20-gauge Tuohy epidural needle was inserted and advanced toward the epidural space using the Loss of resistance technique and guided by AP and lateral fluoroscopy. The correct needle position in the epidural space was verified with the injection of 1 mL of Omnipaque 180 contrast to observe an acceptable epidurogram, after negative aspiration for blood and CSF and in the absence of paresthesias. Again after negative aspiration, a 3 ml mixture containing 40mg of depomedrol and 2 ml of preservative free Normal Saline was injected and a washout of epidurogram was seen. Needle was withdrawn intact, skin was cleansed, and bandages were applied. patient has a lot of pressure with the injectate in the left side of the lumbar spine likely due to spinal stenosis. The injection was performed very slowly. There was no radicular symptoms or any paresthesias. COMPLICATIONS: None DISPOSITION / PLANS: The patient was placed in a supine position and transferred to the recovery area in a stable condition for observation. There was no evidence of lower extremity motor or sensory deficit after the procedure. Patient was discharged from the recovery room after meeting discharge criteria. Home discharge instructions were given to the patient by the staff. The patient was reexamined prior to discharge. The patient will follow up as directed.
[2024-01-23 10:44] VITALS: TEMP 97.4
[2024-01-23 11:23] VITALS: BP 105/65; PULSE 60; RESP 16
--- NOTE | 2024-01-23 11:28 | FL ---
EXAMINATION TYPE: FL guided pain mgmt statistic Intraoperative/procedural fluoroscopic services were provided. Total fluoroscopy time is 1.8 seconds with a total of 1 submitted images to PACS. Please se e the operative/procedural note for further details. DAP: [id number] mGym2
== END 2024-01-23 11:11 | disposition home or self-care (01) ==
LOC: ORPAIN 09:57
PROVIDERS: ATTEND Hospitalist
DX: M54.16 Radiculopathy, lumbar region (principal); Z88.2 Allergy status to sulfonamides; Z88.1 Allergy status to other antibiotic agents; Z91.040 Latex allergy status; Z91.012 Allergy to eggs; Z88.7 Allergy status to serum and vaccine; Z79.82 Long term (current) use of aspirin; Z79.899 Other long term (current) drug therapy
CPT/HCPCS: 62323; J1030; Q9966

== ENCOUNTER → 2024-02-07 | Outpatient (CLI) | payer MEDICARE ==
[2024-02-07 11:17] VITALS: BP 130/62; PULSE 72; RESP 15; TEMP 98.4
--- NOTE | 2024-02-07 14:55 | P.PAINPG ---
PQRS Measure Charge Sheet Comment: HISTORY OF PRESENT ILLNESS: A 78 yr old female presents today w severe and chronic LBP secondary to DDD, spondylosis and facet arthropathy without myelopathy for evaluation s/p SILVA L5- S1 #1. Pt states she experienced 80 % pain relief x 3 days s/p procedure. Pt states pain level is provoked at 7 /10 in intensity, constant, localized in the lower lumbar spine, predominantly axial, burning in character without shooting pain. Pain is provoked by walking/ standing for periods >10 min. Pain is alleviated by heat, medications, topical, PT x 6 wks which ended in Nov 2023, chiropractic treatments monthly in 2020, repositioning and rest. Oswestry axial pain score at 21. Interventional procedures include SILVA L4-L5 x1 (2018), SILVA L5-S1 x1 Medications include ASA, Mobic, Robaxin, [place] 5/325mg #60 REVIEW OF ORGAN SYSTEMS: CONSTITUTIONAL: No fevers or chills. No recent weight loss. NEUROLOGICAL: + numbness and tingling along the distal extremities. No seizure disorders or headaches. MUSCULOSKELETAL: + pain PSYCHIATRIC: Denies current depression or suicidal thoughts. Physical Examinations : Constitutional : Cooperative , not in acute distress . Neurologic : Cranial nerve II to XII intact. No focal neurological deficits. Psychiatric : alert & oriented x 3. Matching mood & appropriate affect. Judgment & insight intact. Musculoskeletal : Cervical Spine Motor strength in the deltoid and biceps: Normal right side. Normal Left side Motor strength biceps and the wrist extensors: Normal right side . Normal left side Motor strength in the triceps muscle: Normal right side. Normal left side Deep tendon reflexes: Normal at the biceps. Normal at Brachioradialis. Normal at triceps Vertebral body tenderness to deep palpation over Cervical facet loading test: positive bilaterally Spurling test: positive bilaterally Neck distraction test: positive bilaterally Rancho sign: positive bilaterally Lumbar spine Motor strength lower extremities ,thigh and legs 5/5 Right side , 5/5 Left side Deep tendon reflexes : Normal Knee Jerk. Normal Ankle Jerk Vertebral body tenderness Pacheco Test positive over BL L3-L4 Lumbar facet Loading Test: positive Right / positive Left L4-L5, L5-S1 Range of motion of the lumbar spine Flexion 30 degrees, extension 10 degrees Straight Leg Raise test: Left/ Right positive at < 35 degrees Duane test: positive right / positive left. Severe tenderness over the Sacroiliac joint on the Right / Left sides Gaenslen test: positive bilaterally Seated flexion test: positive bilaterally. Sacral spine : Severe tenderness over the Sacroiliac joint: right side / left side Range of motion: Flexion of the lumbar spine <60 degrees Range of motion: Extension of the lumbar spine <20 degrees Gaenslen's Test positive Duane test: positive right side / le ft side Thigh Thrust Test Sacral Thrust Test Imaging: CT non contrast of the cervical spine from 05/15/[address] non contrast of the lumbar spine from 12/08/23 reviewed Assessment/ Plan : Lumbar DDD, Cervical DDD Recommendation of BL MBB L4-L5, L5-S1 #1. May need a series of injections, up until RFA, for optimal pain relief. Risks, benefits of procedure discussed and pt verbalized understanding. Protocol for discontinuation/ continuation of medications susanne procedure discussed. All questions answered. I have spent greater than 30 minutes on patient care today. Dr Morales was available by phone for the evaluation of this patient. The time was used to review the medical records including relevant urine studies and Prescription history (MAPs), review of the available imaging, evaluation and examination of the patient, coordination of care with the medical staff and if applicable referring physicians, as well as creation of the medical record PQRS Narrative: Smoking Status Former smoker Hx Alcohol Use (MH) No Home Medications: Ambulatory Orders Escitalopram [Lexapro] 10 mg PO QAM 09/12/14 Aspirin 81 mg PO QAM 11/15/18 Atorvastatin [Lipitor] 80 mg PO QAM 10/26/20 Calcium Carbonate/Vitamin D3 [Calcium 600 mg-Vit D3 5 mcg (200 unit)] 1 each PO DAILY 08/09/21 Pantoprazole [Protonix] 40 mg PO DAILY 08/16/21 Ferrous Sulfate [Iron (65 MG Elemental)] 325 mg PO DAILY 01/16/24 Losartan [Cozaar] 50 mg PO DAILY 01/16/24 Metoprolol Succinate (ER) [Toprol Xl] 25 mg PO DAILY 01/16/24 hydroCHLOROthiazide 25 mg PO DAILY 01/16/24 Controlled Substance Measures - Controlled Substance Measures Is patient prescribed a controlled substance at discharge?: No
== END | disposition home or self-care (01) ==
LOC: PNWHC3 10:09
PROVIDERS: ATTEND Specialist
DX: M51.37 Other intervertebral disc degeneration, lumbosacral region (principal); M50.30 Other cervical disc degeneration, unspecified cervical region; Z91.048 Other nonmedicinal substance allergy status; Z88.1 Allergy status to other antibiotic agents; Z88.7 Allergy status to serum and vaccine; Z88.2 Allergy status to sulfonamides; Z87.891 Personal history of nicotine dependence
CPT/HCPCS: 99211

== ENCOUNTER → 2024-03-01 | Day surgery (SDC) | payer MEDICARE ==
[~2024-03-01] MED LIST changes: -ACETAMINOPHEN TAB 500 MG TAB PO PRN; -MELOXICAM 7.5 MG TAB PO PRN; +MIDAZOLAM 2 MG/2 ML VIAL ONE; -ROPIVACAINE 246.25 MG, EPINEPHrine 0.5 MG, KETOROLAC 30 MG, cloNIDine HCL/PF 80 MCG, WA... MISCELLANE PRN; +ROPIVACAINE 5MG/ML 20ML VIAL ONE; -TRANEXAMIC ACID 1,000 MG in SODIUM CHLORIDE 0.9% 100 ML IVPB PRN; +fentaNYL (PF) 50 MCG/ML 2 ML AMP ONE
[2024-03-01] MEDS: LACTATED RINGERS 1,000 ML IV SCH (10:20)
[2024-03-01 10:44] VITALS: RESP 16; TEMP 97.1
--- NOTE | 2024-03-01 11:02 | P.PCN ---
Date of Procedure: 03/01/24 Surgeon: Palmira Amaro Pathology: none sent Condition: stable Disposition: PACU Description of Procedure: PREOPERATIVE DIAGNOSIS : 1- Lumbar spondylosis with Facet Arthropathy without myelopathy . 2- Lumber degenerative disc disease POSTOPERATIVE DIAGNOSIS: 1- Lumbar spondylosis with Facet Arthropathy without myelopathy . 2- Lumber degenerative disc disease PROCEDURE: Diagnostic bilateral L4 -5 , and L5-S1 medial branch block under fluoroscopy Physician: Palmira Amaro MD ANESTHESIA: Local with 1% lidocaine;and IV moderate conscious sedation by the anesthesia department EBL: Negligible COMPLICATION: None. PROCEDURE INDICATION: Chronic low back pain secondary to Facet arthropathy unresponsive to conservative treatment. PROCEDURE DESCRIPTION: the patient was seen and identified in the preop holding area , risks and benefits and possible complications of the procedure and alternatives were discussed with the patient, and the patient agreed to proceed with the procedure and signed the consent. IV was started and vital signs monitored during the procedure and fluoroscopy was used to maximize the benefit and accuracy of the needle placement, sedation was given to decrease patient anxiety, patient was taken to the procedure room and placed in prone position vital signs monitored. The patient was brought into the procedure room and placed in prone position. Skin was prepped with Chloraprep and draped in a sterile manner. Lidocaine 1% was used to numb the skin up at the target points that were chosen as follows: at the L5-S1 level which corresponds to the dorsal ramus of L5 the target points were at the superior medial aspect of the sacral ala on each side of the spine on the AP view of fluoroscopy, and for the L3 and L4 medial branches the target points were the connection between the transverse process and the superior articular process of L4 and L5 respectively on the oblique views of fluoroscopy. I used 22-gauge 3-1/2 inch Quincke spinal needles for this procedure and after contacting bone at the target points mentioned above I injected 1 mL of Ropivacaine 0.5% PF in each needle . Patient tolerated procedure well. At the end of the procedure the needles removed and a bandage applied after the skin was cleaned the cleaning solution. patient was then taken to the recovery room in stable condition and monitored in the recovery room for 20-30 minutes and discharged home in stable condition after discharge criteria met . A copy of the needle placement picture was saved to the C-arm machine.
--- NOTE | 2024-03-01 11:16 | FL ---
EXAMINATION TYPE: FL guided pain mgmt statistic DATE OF EXAM: 03/01/2024 HISTORY: Fluoroscopy time Total dose area product (DAP) in uGy*m?, mGy*cm? (or similar): 0.12543 IMPRESSION: 1. Fluoroscopy time.
[2024-03-01 11:29] VITALS: BP 127/67; PULSE 60
[2024-03-01] MEDS: LACTATED RINGERS 1,000 ML IV ONE (11:40)
== END ==
LOC: ORPAIN 09:57
PROVIDERS: ATTEND Anesthesiology
DX: M51.36 Other intervertebral disc degeneration, lumbar region (principal); M47.816 Spondylosis without myelopathy or radiculopathy, lumbar region; I10 Essential (primary) hypertension; E78.5 Hyperlipidemia, unspecified; I25.10 Atherosclerotic heart disease of native coronary artery without angina pectoris; K21.9 Gastro-esophageal reflux disease without esophagitis; Z79.899 Other long term (current) drug therapy; Z98.890 Other specified postprocedural states; Z88.2 Allergy status to sulfonamides; Z88.8 Allergy status to other drugs, medicaments and biological substances; Z79.82 Long term (current) use of aspirin
CPT/HCPCS: 64494 ×2; 64493; J2250; J3010; J2795

== ENCOUNTER 2024-03-06 14:51 | Emergency (ER) | payer MEDICARE ==
[2024-03-06 15:23] VITALS: RESP 18; TEMP 98
--- NOTE | 2024-03-06 15:45 | ED ---
Fall HPI - General Source: patient, RN notes reviewed Mode of arrival: wheelchair <Myesha Huffman - Last Filed: 03/06/24 15:43> <Connie Maurer - Last Filed: 03/06/24 17:07> - General Chief Complaint: Fall Stated Complaint: Fall-head injury Time Seen by Provider: 03/06/24 15:03 - History of Present Illness Initial Comments: Quick Note- this is an 79-year-old female presents emergency department chief complaint of a fall and subsequent headache and bruising. Patient said she was weed whacking when she tripped down a slanted hill landing and hitting the right side of her head. She remembers the fall happening and denies loss of consciousness during this, the fall was not witnessed. She is endorsing a headache and pressure over the right head. Denies use of blood thinners. (Myesha Huffman) 79-year-old female presents to the emergency department for evaluation of fall with head injury. Patient states that she [place] one of the paving blocks came loose causing her to fall forward. She states that she hit the right side of her face and head on the ground. She notes swelling above her right eye. She does admit to headache and pressure over the right side of her head and face. She admits to pain in her left hip which is her typical pain just somewhat worse. She has been able to ambulate. She did not lose consciousness, denies blood thinners. (Connie Maurer) - Related Data Home Medications Medication Instructions Recorded Confirmed Escitalopram [Lexapro] 10 mg PO QAM 09/12/14 02/27/24 Aspirin 81 mg PO QAM 11/15/18 02/27/24 Atorvastatin [Lipitor] 80 mg PO QAM 10/26/20 02/27/24 Calcium Carbonate/Vitamin D3 1 each PO DAILY 08/09/21 02/27/24 [Calcium 600 mg-Vit D3 5 mcg (200 unit)] Pantoprazole [Protonix] 40 mg PO DAILY 08/16/21 02/27/24 Ferrous Sulfate [Iron (65 MG 325 mg PO DAILY 01/16/24 02/27/24 Elemental)] Losartan [Cozaar] 50 mg PO DAILY 01/16/24 02/27/24 Metoprolol Succinate (ER) [Toprol 25 mg PO DAILY 01/16/24 02/27/24 Xl] hydroCHLOROthiazide 25 mg PO DAILY 01/16/24 02/27/24 Allergies Allergy/AdvReac Type Severity Reaction Status Date / Time adhesive tape Allergy Itching Verified 03/06/24 15:07 ciprofloxacin [From Cipro] Allergy Rash/Hives. Verified 03/06/24 15:07 HOT FLASHES. ciprofloxacin HCl Allergy Rash/Hives. Verified 03/06/24 15:07 [From Cipro] HOT FLASHES. Influenza Virus Vaccines Allergy redness/ Verified 03/06/24 15:07 Sulfa (Sulfonamide Allergy Rash/Hives. Verified 03/06/24 15:07 Antibiotics) HOT FLASHES, skin turns red Review of Systems ROS Other: All systems not noted in ROS Statement are negative. <Myesha Huffman - Last Filed: 03/06/24 15:43> ROS Other: All systems not noted in ROS Statement are negative. <Connie Maurer - Last Filed: 03/06/24 17:07> ROS Statement: Those systems with pertinent positive or pertinent negative responses have been documented in the HPI. Past Medical History Past Medical History: Coronary Artery Disease (CAD), Cancer, Chest Pain / Angina, Fibromyalgia, GERD/Reflux, Hyperlipidemia, Hypertension, Osteoarthritis (OA) Additional Past Medical History / Comment(s): hiatal hernia (surgery), RIGHT BREAST CA., FREQUENT UTI'S History of Any Multi-Drug Resistant Organisms: None Reported Past Surgical History: Appendectomy, Breast Surgery, Cholecystectomy, Heart Catheterization With Stent, Hernia Repair, Joint Replacement, Orthopedic Surgery Additional Past Surgical History / Comment(s): RODNEY FUNDOPLASTY. RIGHT MASTECTOMY. EDMUNDO CATARACTS. Rt. TKA, left rotator cuff, Bilat. VARGAS, PAIN CLINIC PROCEDURES, CARDIAC STENTS x 4 total 01/2019 & 10/2018, 2020,1 stent circ 11/12/20, LEFT CAROTID ENDARTERECTOMY (JUL 2019), LEFT BREAST BX. Past Anesthesia/Blood Transfusion Reactions: Previous Problems w/ Anesthesia, Motion Sickness Additional Past Anesthesia/Blood Transfusion Reaction / Comment(s): Had "terrible hallucinations" after knee surgery. "takes longer to come out...real bad' Date of Last Stent Placement:: 01/2019 Past Psychological History: Anxiety, Depression Smoking Status: Former smoker Past Alcohol Use History: None Reported Past Drug Use History: None Reported - Past Family History Mother Family Medical History: Coronary Artery Disease (CAD) Additional Family Medical History / Comment(s): . <Myesha Huffman - Last Filed: 03/06/24 15:43> General Exam Limitations: no limitations <Tone Huffmanoe - Last Filed: 03/06/24 15:43> Limitations: no limitations General appearance: alert, in no apparent distress Head exam: Present: other (hematoma to right forehead) Eye exam: Present: normal appearance, PERRL, EOMI. Absent: scleral icterus, conjunctival injection, periorbital swelling ENT exam: Present: normal exam, mucous membranes moist Neck exam: Present: normal inspection, full ROM. Absent: tenderness, meningismus, lymphadenopathy Respiratory exam: Present: normal lung sounds bilaterally. Absent: respiratory distress, wheezes, rales, rhonchi, stridor Cardiovascular Exam: Present: regular rate, normal rhythm, normal heart sounds. Absent: systolic murmur, diastolic murmur, rubs, gallop, clicks Extremities exam: Present: normal inspection, full ROM, normal capillary refill. Absent: tenderness, pedal edema, joint swelling, calf tenderness Back exam: Present: normal inspection Neurological exam: Present: alert, oriented X3, CN II-XII intact Psychiatric exam: Present: normal affect, normal mood Skin exam: Present: warm, dry, normal color, abrasion (abrasion to right sided forehead with hematoma present). Absent: rash <Connie Maurer - Last Filed: 03/06/24 17:07> - General Exam Comments Initial Comments: Visual Physical Exam Vital signs reviewed General: Well-appearing, nontoxic, no acute distress. Head: Normocephalic, atraumatic Eyes: PERRLA, EOMI ENT: Airway patent Chest: Nonlabored breathing Skin: No visual rash, normal skin tone Neuro: Alert and oriented 3 Musculoskeletal: No gross abnormalities (Jose JeleMyesha woodard) Course Vital Signs 03/06/24 15:03 Temperature 98.0 F Pulse Rate 79 Respiratory 18 Rate O2 Sat by Pulse 97 Oximetry Medical Decision Making <Myesha Huffman - Last Filed: 03/06/24 15:43> <Connie Maurer - Last Filed: 03/06/24 17:07> - Medical Decision Making I completed the quick note portion of this chart signed Myesha Huffman PA-C (Myesha Huffman) Was pt. sent in by a medical professional or institution ([facility], [facility], urgent care, hospital, or halfway...) When possible be specific @ -No Did you speak to anyone other than the patient for history (EMS, parent, family, police, friend...)? What history was obtained from this source @ -No Did you review nursing and triage notes (agree or disagree)? Why? @ -I reviewed and agree with nursing and triage notes Were old charts reviewed (outside hosp., previous admission, EMS record, old EKG, old radiological studies, urgent care reports/EKG's, halfway records)? Report findings @ -No old charts were reviewed Differential Diagnosis (chest pain, altered mental status, abdominal pain women, abdominal pain men, vaginal bleeding, weakness, fever, dyspnea, syncope, headache, dizziness, GI bleed, back pain, seizure, CVA, palpatations, mental health, musculoskeletal)? @ -Fall, head injury, intracranial hemorrhage, this list is not all inclusive EKG interpreted by me (3pts min.). @ -None X-rays interpreted by me (1pt min.). @ -None done CT interpreted by me (1pt min.). @ -CT brain show no evidence of acute intracranial hemorrhage or mass effect CT facial bones shows no acute fracture U/S interpreted by me (1pt. min.). @ -None done What testing was considered but not performed or refused? (CT, X-rays, U/S, labs)? Why? @ -None What meds were considered but not given or refused? Why? @ -None Did you discuss the management of the patient with other professionals (professionals i.e. [facility], [facility], lab, RT, psych nurse, social service coordinator, retail merchandiser, teacher, mobile patrol officer, oil field caser)? Give summary @ -No Was smoking cessation discussed for >3mins.? @ -No Was critical care preformed (if so, how long)? @ -No Were there social determinants of health that impacted care today? How? (Homelessness, low income, unemployed, alcoholism, drug addiction, transportation, low edu. Level, literacy, decrease access to med. care, halfway, rehab)? @ -No Was there de-escalation of care discussed even if they declined (Discuss DNR or withdrawal of care, Hospice)? DNR status @ -No What co-morbidities impacted this encounter? (DM, HTN, Smoking, COPD, CAD, Cancer, CVA, ARF, Chemo, Hep., AIDS, mental health diagnosis, sleep apnea, morbid obesity)? @ -None Was patient admitted / discharged? Hospital course, mention meds given and route, prescriptions, significant lab abnormalities, going to OR and other pertinent info. @ -Discharged. Patient presented to the emergency department for evaluation of fall with head injury. Denies blood thinners, loss of consciousness. CT brain obtained shows no evidence of acute intracranial process, CT facial bones shows no acute fracture. Patient provided medication for headache. Advised patient on findings and follow up with her PCP. Strict return precautions discussed. Patient understanding and agreeable with plan. Patient stable at time of discharge. Case discussed with Dr. James Undiagnosed new problem with uncertain prognosis? @ -No Drug Therapy requiring intensive monitoring for toxicity (Heparin, Nitro, Insulin, Cardizem)? @ -No Were any procedures done? @ -No Diagnosis/symptom? @ -Fall, head injury Acute, or Chronic, or Acute on Chronic? @ -acute Uncomplicated (without systemic symptoms) or Complicated (systemic symptoms)? @ -uncomplicated Side effects of treatment? @ -No Exacerbation, Progression, or Severe Exacerbation? @ -No Poses a threat to life or bodily function? How? (Chest pain, USA, SD, pneumonia, PE, COPD, DKA, ARF, appy, cholecystitis, CVA, Diverticulitis, Homicidal, Suicidal, threat to staff... and all critical care pts) @ -No (Connie Maurer) Disposition <Myesha Huffman - Last Filed: 03/06/24 15:43> Is patient prescribed a controlled substance at d/c from ED?: No <Connie Maurer - Last Filed: 03/06/24 17:07> Clinical Impression: Fall, Head injury Disposition: HOME SELF-CARE Condition: Stable Instructions (If sedation given, give patient instructions): Fall Prevention for Older Adults (ED) Additional Instructions: Please follow up with your primary care provider. Return to the emergency department for new or worsening symptoms. Referrals: Bobby Dodge DO [Primary Care Provider] - 1-2 days
--- NOTE | 2024-03-06 16:21 | CT ---
EXAMINATION TYPE: CT brain wo con DATE OF EXAM: 03/06/2024 COMPARISON: 09/05/2010 HISTORY: Fall, bruising and swelling above rt eye. CT DLP: Combined DLP of 1234.[address] of the brain was performed. The ventricles, basal cisterns and sulci overlying the cerebral convexities demonstrate mild enlargem ent. There is no evidence for intracranial hemorrhage or sulcal effacement. There is decreased attenuation about the periventricular white matter and deep white matter of both c erebral hemispheres, compatible with chronic small vessel ischemia. Differential diagnosis does inclu de demyelination. No mass effects are seen.No midline shift. Osseous calvarium is intact. Right frontal right periorbital soft tissue swelling seen. If symptoms persist consider MRI. IMPRESSION: 1. Age related atrophic and chronic small vessel ischemic change without acute intracranial process s een at this time.
--- NOTE | 2024-03-06 16:23 | CT ---
EXAMINATION TYPE: CT facial bones wo con DATE OF EXAM: 03/06/2024 COMPARISON: None HISTORY: Fall, bruising and swelling above rt eye. CT DLP: Combined DLP of 1234.[address] of the facial bones was performed in the axial and coronal planes. Bone and soft tissu e window settings are submitted. Right supraorbital and right frontal soft tissue hematoma. I do not see evidence for displaced facial bone fracture or depressed facial bone fracture. The globes are intact. Paranasal sinuses are well-aerated. IMPRESSION: 1. No evidence for depressed or displaced facial bone fracture.
[2024-03-06] MEDS: DIPH,PERTUS(ACELL)TETVAC-LF 0.5 ML VIAL IM ONE (17:00)
[2024-03-06] MEDS: ACETAMINOPHEN TAB 325 MG TAB PO STA (17:01)
[2024-03-06] MEDS: traMADol 50 MG TAB PO STA (17:03)
[2024-03-06] MEDS: traMADol 50 MG STARTER PACK 3 TAB BTL PO STA (17:04)
[2024-03-06 17:46] VITALS: BP 109/61; PULSE 66
== END 2024-03-06 17:13 | disposition home or self-care (01) ==
LOC: EC 14:51
DX: S00.81XA Abrasion of other part of head, initial encounter (principal); Z87.891 Personal history of nicotine dependence; Z88.1 Allergy status to other antibiotic agents; Z88.7 Allergy status to serum and vaccine; Z88.2 Allergy status to sulfonamides; Z88.8 Allergy status to other drugs, medicaments and biological substances; Z23 Encounter for immunization; W01.10XA Fall on same level from slipping, tripping and stumbling with subsequent striking against unspecified object, initial encounter
CPT/HCPCS: 70450; 70486; 90471; 90715; 99284

== ENCOUNTER → 2024-05-30 | Outpatient (CLI) | payer MEDICARE ==
--- NOTE | 2024-06-20 14:56 | P.PAINPG ---
PQRS Measure Charge Sheet Comment: HISTORY OF PRESENT ILLNESS: An 79 yr old female presents today (05/30/24) w severe and chronic LBP secondary to DDD, spondylosis and facet arthropathy without myelopathy for evaluation s/p BL MBB L4-L5, L5-S1 #1. Pt states she experienced 80 % pain relief x 1 day s/p procedure. Pt states pain level is provoked at 8 /10 in intensity, intermittent, localized in the lower lumbar spine, predominantly axial, sharp in character without shooting pain. Pain is provoked by walking/ standing for periods >10 min. Pain is alleviated by heat, medications, topical, PT x 6 wks which ended in Nov 2023, physician guided HEP stretches daily since Nov 2023. chiropractic treatments monthly in 2020, repositioning and rest. Interventional procedures include SILVA L4-L5 x1 (2018), SILVA L5-S1 x1, BL MBB L4- L5/ L5-S1 x1 Medications include ASA, Mobic, Robaxin, [place] 5/325mg #60 REVIEW OF ORGAN SYSTEMS: CONSTITUTIONAL: No fevers or chills. No recent weight loss. NEUROLOGICAL: + numbness and tingling along the distal extremities. No seizure disorders or headaches. MUSCULOSKELETAL: + pain PSYCHIATRIC: Denies current depression or suicidal thoughts. Physical Examinations : Constitutional : Cooperative , not in acute distress . Neurologic : Cranial nerve II to XII intact. No focal neurological deficits. Psychiatric : alert & oriented x 3. Matching mood & appropriate affect. Judgment & insight intact. Musculoskeletal : Cervical Spine Motor strength in the deltoid and biceps: Normal right side. Normal Left side Motor strength biceps and the wrist extensors: Normal right side . Normal left side Motor strength in the triceps muscle: Normal right side. Normal left side Deep tendon reflexes: Normal at the biceps. Normal at Brachioradialis. Normal at triceps Vertebral body tenderness to deep palpation over Cervical facet loading test: positive bilaterally Spurling test: positive bilaterally Neck distraction test: positive bilaterally Rancho sign: positive bilaterally Lumbar spine Motor strength lower extremities ,thigh and legs 5/5 Right side , 5/5 Left side Deep tendon reflexes : Normal Knee Jerk. Normal Ankle Jerk Vertebral body tenderness Pacheco Test positive over BL L3-L4 Lumbar facet Loading Test: positive Right / positive Left L4-L5, L5-S1 Range of motion of the lumbar spine Flexion 30 degrees, extension 10 degrees Straight Leg Raise test: Left/ Right positive at < 35 degrees Duane test: positive right / positive left. Severe tenderness over the Sacroiliac joint on the Right / Left sides Gaenslen test: positive bilaterally Seated flexion test: positive bilaterally. Sacral spine : Severe tenderness over the Sacroiliac joint: right side / left side Range of motion: Flexion of the lumbar spine <60 degrees Range of motion: Extension of the lumbar spine <20 degrees Gaenslen's Test positive Duane test: positive right side / left side Thigh Thrust Test Sacral Thrust Test Imaging: CT non contrast of the cervical spine from 05/15/[address] non contrast of the lumbar spine from 12/08/23 reviewed Assessment/ Plan : Lumbar DDD, Cervical DDD Recommendation of BL MBB L4-L5, L5-S1 #3. Risks, benefits of procedure discussed and pt verbalized understanding. Protocol for discontinuation/ continuation of medications susanne procedure discussed.Minimal anesthesia including Versed and Fentanyl if clinically indicated. All questions answered. I have spent greater than 30 minutes on patient care today. Dr Morales was available by phone for the evaluation of this patient. The time was used to review the medical records including relevant urine studies and Prescription history (MAPs), review of the available imaging, evaluation and examination of the patient, coordination of care with the medical staff and if applicable referring physicians, as well as creation of the medical record PQRS Narrative: Smoking Status Former smoker Hx Alcohol Use (MH) No Home Medications: Ambulatory Orders Escitalopram [Lexapro] 10 mg PO QAM 09/12/14 Aspirin 81 mg PO QAM 11/15/18 Atorvastatin [Lipitor] 80 mg PO QAM 10/26/20 Calcium Carbonate/Vitamin D3 [Calcium 600 mg-Vit D3 5 mcg (200 unit)] 1 each PO DAILY 08/09/21 Pantoprazole [Protonix] 40 mg PO DAILY 08/16/21 Ferrous Sulfate [Iron (65 MG Elemental)] 325 mg PO DAILY 01/16/24 Losartan [Cozaar] 50 mg PO DAILY 01/16/24 Metoprolol Succinate (ER) [Toprol Xl] 25 mg PO DAILY 01/16/24 hydroCHLOROthiazide 25 mg PO DAILY 01/16/24 Controlled Substance Measures - Controlled Substance Measures Is patient prescribed a controlled substance at discharge?: No
== END ==
LOC: PNWHC3 10:30
PROVIDERS: ATTEND Specialist
DX: M47.816 Spondylosis without myelopathy or radiculopathy, lumbar region
CPT/HCPCS: 99211

== ENCOUNTER 2024-07-11 11:05 | Day surgery (SDC) | payer MEDICARE ==
--- NOTE | 2024-07-03 10:43 | MM ---
Reason for Exam: Follow-up at short interval from prior study. Last mammogram was performed 1 year(s) and 1 month(s) ago. Patient History: Menarche at age 11. Patient has no children. Postmenopausal. Breast cancer, right, age 62. Patient used Estrogen for 5 years. Patient used Progesterone for 5 years. Excisional Biopsy on the Left side. Excisional Biopsy on the Left side. Excisional Biopsy on the Left side. 2006, Mastectomy on the Right side. 09/25/2018, Benign Core Biopsy on the left side. Prior Study Comparison: 06/09/2021 Left Diagnostic Mammogram, [facility]. 06/20/2022 Left MG 3D diag mammo w/cad LT, [facility]. 06/21/2023 Left MG 3D diag mammo w/cad LT, [facility]. Tissue Density: Left: The breasts are heterogeneously dense, which may obscure small masses. Findings: Analyzed By CAD. Stable benign calcifications left breast. No evidence for mass or distortion. Overall Assessment: Benign, BI-RAD 2 Management: Diagnostic Mammogram of the left breast in 1 year. . Results were given to the patient verbally at the time of exam. Patient should continue monthly self-breast exams. A clinical breast exam by your physician is recommended on an annual basis. This exam should not preclude additional follow-up of suspicious palpable abnormalities. Note on Rhea scores and lifetime risk: 1. A Rhea score greater than 3% is considered moderate risk. If this is the case, consider specialist referral to assess eligibility for a risk reducing agent. 2. If overall lifetime risk for the development of breast cancer is 20% or higher, the patient may qualify for future screening with alternating mammogram and breast MRI. Electronically signed and approved by: Aurelio Bolanos M.D. Radiologis
[2024-07-11 12:56] VITALS: RESP 18; TEMP 97
[2024-07-11] MEDS: LACTATED RINGERS 1,000 ML IV SCH (13:11)
[2024-07-11 13:13] LABS: Glucose,Whole Blood 106 mg/dL (70-110)
[2024-07-11] MEDS: IV FLUID CONTINUATION 1,000 ML IV ONE ×2 (13:14→13:58)
[2024-07-11] MEDS ORDERED: fentaNYL (PF) 50 MCG/ML 2 ML AMP ONE (13:30)
[2024-07-11] MEDS ORDERED: MIDAZOLAM 2 MG/2 ML VIAL ONE (13:30)
[2024-07-11] MEDS ORDERED: ROPIVACAINE 5MG/ML 20ML VIAL ONE (13:30)
--- NOTE | 2024-07-11 13:56 | P.PCN ---
Description of Procedure: Preprocedure diagnosis. 1. Lumbar spondylosis with facet joint arthropathy without myelopathy. 2. Lumbar degenerative disc disease. Postprocedure diagnosis. As above. Procedure done. Bilateral diagnostic block with local anesthetics at L3, L4, L5 medial branch to target the facet joint L4- 5 and L5-S1 with fluoroscopic guidan ce (fluoroscopy images are available in the radiology department) . Anesthesia. Moderate sedation with intravenous Versed 2 mg and 50 fentanyl and local infiltration with local anesthetics. In OR, continuous pulse ox, EKG, blood pressure and verbal communication was maintained. Time. Blood loss. Minimal. Indication. The patient has low back pain secondary to lumbar facet joint arthropathy. Discussed the procedure and alternative and complications which includes infection, bleeding, nerve damage, paralysis ,aggravation of pain. Patient understands and all questions were answered. Patient iunderstands that if any pain relief occurs it will last for a few hours to a few days maximum. Procedure description. After getting consent patient was taken in the OR in prone position. Back prepped with chlorhexidine and draped in sterile fashion. After injecting 5 mL of plain 1% lidocaine subcutaneously, a 22-gauge spinal needle was introduced under tunnel vision of the fluoroscope at the junction of the superior articular process with RIGHT ala of the sacrum. With slight oblique fluoroscope, after injecting 5 mL of plain 1% lidocaine subcutaneously, a 22-gauge spinal needle was introduced under tunnel vision of the fluoroscope at the junction of the superior articular process with RIGHT L5 transverse process, junction of the superior articular process with the RIGHT L4 transverse process. Negative CSF, negative blood, negative paresthesia. After needle position confirmation by AP and crosstable lateral view, after negative aspiration, half milliliters of solution were injected at each point. Total 1- 1/2 mL of solution was injected on the right side which consists of 0.5% ropivacaine. In exactly same way, LEFT sided injections were done at the following 3 points. Junction of the superior articular process with left ala of the sacrum, junction of the superior articular process with the left L5 transverse process, junction of the superior articular process with left L4 transverse process using 0.5 mL of solution at each point. Total 1-1/2 mL of solution was injected on the left side which consists of 0.5% ropivacaine . Spinal needles were taken out and bandages were applied. Disposition. Patient tolerated the procedure well. No complication. Discharged home in stable condition
[2024-07-11 14:11] VITALS: BP 160/63; PULSE 55
--- NOTE | 2024-07-25 10:36 | FL ---
EXAMINATION TYPE: FL guided pain mgmt statistic DATE OF EXAM: 07/11/2024 1:53 PM COMPARISON: Pre Operative Images if available both CT/MRI or plain film CLINICAL INDICATION: Female, 79 years old with history of Jerardo Lumbar Facet; TECHNIQUE: FL guided pain mgmt statistic, multiple fluoroscopic images provided for procedure. Total fluoroscopy time: 47 seconds Total submitted images to PACS: 5 DAP: [id number] mGym2 Gycm2 uGym2 cGycm2 or equivalent. FINDINGS: IMPRESSION: 1. No evidence for intraoperative complication. 2. Please see the operative/procedural note for further details. [facility], , 07/25/2024 10:33 AM
== END 2024-07-11 14:27 | disposition home or self-care (01) ==
LOC: ORPAIN 11:05
PROVIDERS: ATTEND Pain Medicine Interventional Pain Medicine
DX: M47.816 Spondylosis without myelopathy or radiculopathy, lumbar region
CPT/HCPCS: 99152; 99153

== ENCOUNTER → 2024-07-22 | Outpatient (CLI) | payer MEDICARE ==
[2024-07-22 10:33] VITALS: BP 99/64; PULSE 62; RESP 16; TEMP 97.8
--- NOTE | 2024-07-22 12:36 | P.PAINPG ---
PQRS Measure Charge Sheet Comment: HISTORY OF PRESENT ILLNESS: An 79 yr old female presents today (05/30/24) w severe and chronic LBP secondary to radiculopathy, spondylosis and facet arthropathy without myelopathy for evaluation s/p BL MBB L4-L5, L5-S1 #2. Pt states she experienced 80 % pain relief x 1 day s/p procedure. Pt states pain level is provoked at 6 /10 in intensity, intermittent, localized in the lower lumbar spine, predominantly axial, sharp in character without shooting pain. Pain is provoked by walking/ standing for periods >10 min. Pain is alleviated by heat, medications, topical, PT x 6 wks which ended in Nov 2023, physician guided HEP stretches daily since Nov 2023, chiropractic treatments monthly in 2020, repositioning and rest. Interventional procedures include SILVA L4-L5 x1 (2018), SILVA L5-S1 x1, BL MBB L4- L5/ L5-S1 x2 Medications include ASA, Mobic, Robaxin, Tramadol REVIEW OF ORGAN SYSTEMS: CONSTITUTIONAL: No fevers or chills. No recent weight loss. NEUROLOGICAL: + numbness and tingling along the distal extremities. No seizure disorders or headaches. MUSCULOSKELETAL: + pain PSYCHIATRIC: Denies current depression or suicidal thoughts. Physical Examinations : Constitutional : Cooperative , not in acute distress . Neurologic : Cranial nerve II to XII intact. No focal neurological deficits. Psychiatric : alert & oriented x 3. Matching mood & appropriate affect. Judgment & insight intact. Musculoskeletal : Cervical Spine Motor strength in the deltoid and biceps: Normal right side. Normal Left side Motor strength biceps and the wrist extensors: Normal right side . Normal left side Motor strength in the triceps muscle: Normal right side. Normal left side Deep tendon reflexes: Normal at the biceps. Normal at Brachioradialis. Normal at triceps Vertebral body tenderness to deep palpation over Cervical facet loading test: positive bilaterally Spurling test: positive bilaterally Neck distraction test: positive bilaterally Rancho sign: positive bilaterally Lumbar spine Motor strength lower extremities ,thigh and legs 5/5 Right side , 5/5 Left side Deep tendon reflexes : Normal Knee Jerk. Normal Ankle Jerk Vertebral body tenderness Pacheco Test positive over BL L3-L4 Lumbar facet Loading Test: positive Right / positive Left L4-L5, L5-S1 Range of motion of the lumbar spine Flexion 30 degrees, extension 10 degrees Straight Leg Raise test: Left/ Right positive at < 35 degrees Duane test: positive right / positive left. Severe tenderness over the Sacroiliac joint on the Right / Left sides Gaenslen test: positive bilaterally Seated flexion test: positive bilaterally. Sacral spine : Severe tenderness over the Sacroiliac joint: right side / left side Range of motion: Flexion of the lumbar spine <60 degrees Range of motion: Extension of the lumbar spine <20 degrees Gaenslen's Test positive Duane test: positive right side / left side Thigh Thrust Test Sacral Thrust Test Imaging: CT non contrast of the cervical spine from 05/15/[address] non contrast of the lumbar spine from 12/08/23 reviewed Assessment/ Plan : Lumbar radiculopathy, Cervical radiculopathy Recommendation of BL RFA L4-L5, L5-S1. Risks, benefits of procedure discussed and pt verbalized understanding. Protocol for discontinuation/ continuation of medications susanne procedure discussed.Minimal anesthesia including Versed and Fentanyl if clinically indicated. All questions answered. I have spent greater than 30 minutes on patient care today. Dr Morales was available by phone for the evaluation of this patient. The time was used to review the medical records including relevant urine studies and Prescription history (MAPs), review of the available imaging, evaluation and examination of the patient, coordination of care with the medical staff and if applicable referring physicians, as well as creation of the medical record PQRS Narrative: Smoking Status Former smoker Hx Alcohol Use (MH) No Home Medications: Ambulatory Orders Escitalopram [Lexapro] 10 mg PO QAM 09/12/14 Aspirin 81 mg PO QAM 11/15/18 Atorvastatin [Lipitor] 80 mg PO QAM 10/26/20 Calcium Carbonate/Vitamin D3 [Calcium 600 mg-Vit D3 5 mcg (200 unit)] 1 each PO DAILY 08/09/21 Pantoprazole [Protonix] 40 mg PO DAILY 08/16/21 Ferrous Sulfate [Iron (65 MG Elemental)] 325 mg PO DAILY 01/16/24 Losartan [Cozaar] 50 mg PO DAILY 01/16/24 Metoprolol Succinate (ER) [Toprol Xl] 25 mg PO DAILY 01/16/24 hydroCHLOROthiazide 25 mg PO DAILY 01/16/24 Controlled Substance Measures - Controlled Substance Measures Is patient prescribed a controlled substance at discharge?: No
== END | disposition home or self-care (01) ==
LOC: PNWHC3 10:15
PROVIDERS: ATTEND Specialist
DX: M47.26 Other spondylosis with radiculopathy, lumbar region (principal)
CPT/HCPCS: 99211

== ENCOUNTER 2024-08-15 09:01 | Day surgery (SDC) | payer MEDICARE ==
[2024-08-15] MEDS: IV FLUID CONTINUATION 1,000 ML IV ONE ×2 (09:00→10:35)
[2024-08-15 09:20] VITALS: TEMP 97.6
[2024-08-15] MEDS: LACTATED RINGERS 1,000 ML IV SCH (09:29)
[2024-08-15] MEDS ORDERED: fentaNYL (PF) 50 MCG/ML 2 ML AMP ONE (09:55)
[2024-08-15] MEDS ORDERED: ROPIVACAINE 5MG/ML 20ML VIAL ONE (09:55)
[2024-08-15] MEDS ORDERED: MIDAZOLAM 2 MG/2 ML VIAL ONE (09:55)
--- NOTE | 2024-08-15 10:39 | P.PCN ---
Description of Procedure: Preprocedure diagnosis. 1. Lumbar spondylosis with facet joint arthropathy without myelopathy. 2. Lumbar degenerative disc disease. Procedure diagnosis. 1. Lumbar spondylosis with facet joint arthropathy without myelopathy. Space 2. Lumbar degenerative disc disease. Procedure.Bilateral radiofrequency thermocoagulation L3, L4 and L5 medial branch, with fluoroscopic guidance (fluoroscopy images are available in the radiology department) (to Denervate the facet joint at bilateral L4- 5 and L5-S1 levels) Anesthesia. Moderate sedation with intravenous Versed 2 mg and fentanyl 100 g and local infiltration with Lidocaine. Continuous pulse OX,BP,EKG and verbal communication was maintained with patient. Time. EBL minimal. Procedure indication. The patient with low back pain secondary to lumbar facet arthropathy who he had more than 50% relief of her pain with previous diagnostic lumbar medial branch block with local anesthetics.The patient was seen and identified in the preoperative area. Risks: Benefits, complications, including but not limited to risk of infection, bleeding, ALLERGIC reaction to the medica tions and no complete pain relief and alternatives were discussed with the patient, the patient admitted to proceed with the procedure and signed the consent. Procedure description/technique. Patient was taken to the OR and timeout was completed. The patient was placed in prone position on the procedure table. The lumbar area was prepped and draped in the usual sterile fashion. After injecting 5 ml of 1% Lidocaine subcutaneously,using AP and then oblique, lateral view of fluoroscopy, 18-gauge 100 mm radiofrequency cannula with a 10 mm active tip was advanced and guided by fluoroscopy at the junction of supirior articular process with RIGHT ala of the sacrum, transverse process of L4&L5. Each site then underwent positive sensory testing with 50 Hz and 0-1 V and negative motor testing at 2.5 Hz and 0-3 V with local stimulation but no radicular symptoms down the leg. Thereafter each sites underwent radiofrequency thermocoagulation at 80C for 90 seconds after injecting 1 mL of preservative- free 0.5% ropivacaine. Repeat radiofrequency ablation was done at each points after rotating the needle 180 with same setting. This same procedure was repeated twice on the LEFT side at the junction of superior articular process with ala of sacrum,transverse process of L4, L5 with the same settings after positive sensory,negative motor stimulation and infiltration of 1.0 ml 5% Ropivacaine at each site . RF needles were taken out. At the end of the procedure the skin was cleansed and Band-Aids were applied. Disposition patient tolerated the procedure well. No complication. She was placed in supine position and transferred to the recovery area in stable condition for observation and was discharged home from recovery room after meeting discharge criteria. Discharge instructions given to the patient by the staff. The patient were examined prior to discharge the patient will schedule a follow-up in the clinic in 2-4 weeks.
[2024-08-15 10:54] VITALS: BP 117/72; PULSE 59; RESP 18
--- NOTE | 2024-08-15 13:06 | FL ---
EXAMINATION TYPE: FL guided pain mgmt statistic DATE OF EXAM: 08/15/2024 FLUOROSCOPY STEROID INJECTION, 43SEC FL TIME, LEO=[id number] 5 views submitted. [facility], , 08/15/2024 1:04 PM
== END 2024-08-15 11:12 | disposition home or self-care (01) ==
LOC: ORPAIN 09:01
PROVIDERS: ATTEND Pain Medicine Interventional Pain Medicine
DX: M47.816 Spondylosis without myelopathy or radiculopathy, lumbar region (principal); M51.369 Other intervertebral disc degeneration, lumbar region without mention of lumbar back pain or lower extremity pain; Z88.1 Allergy status to other antibiotic agents; Z91.012 Allergy to eggs; Z91.040 Latex allergy status
CPT/HCPCS: 64635; 64636; J2250; J3010; J2795; 99152; 99153

== ENCOUNTER → 2024-09-04 | Outpatient (CLI) | payer MEDICARE ==
[2024-09-04 10:37] VITALS: BP 135/84; PULSE 64; RESP 16
--- NOTE | 2024-09-04 16:05 | P.PAINPG ---
Objective - Vital Signs Vital signs: Intake & Output 09/03/24 09/04/24 09/04/24 18:59 06:59 18:59 Weight 78.018 kg PQRS Measure Charge Sheet Comment: HISTORY OF PRESENT ILLNESS: An 79 yr old female presents today w severe and chronic LBP secondary to radiculopathy, spondylosis and facet arthropathy without myelopathy for evaluation s/p BL RFA L4-L5, L5-S1. Pt states she experienced 80 % pain relief s/p procedure. Pt states pain level is provoked at 3 /10 in intensity, intermittent, localized in the lower lumbar spine, predominantly axial, dull in character without shooting pain. Pain is provoked by walking/ standing for periods >10 min. Pain is alleviated by heat, medications, topical, PT x 6 wks which ended in Nov 2023, physician guided HEP stretches daily since Nov 2023, chiropractic treatments monthly in 2020, repositioning and rest. Interventional procedures include SILVA L4-L5 x1 (2017), SILVA L5-S1 x1, BL RFA L4- L5/ L5-S1 (Jul 2024) Medications include ASA, Mobic, Robaxin, Tramadol REVIEW OF ORGAN SYSTEMS: CONSTITUTIONAL: No fevers or chills. No recent weight loss. NEUROLOGICAL: + numbness and tingling along the distal extremities. No seizure disorders or headaches. MUSCULOSKELETAL: + pain PSYCHIATRIC: Denies current depression or suicidal thoughts. Physical Examinations : Constitutional : Cooperative , not in acute distress . Neurologic : Cranial nerve II to XII intact. No focal neurological deficits. Psychiatric : alert & oriented x 3. Matching mood & appropriate affect. Judgment & insight intact. Musculoskeletal : Cervical Spine Motor strength in the deltoid and biceps: Normal right side. Normal Left side Motor strength biceps and the wrist extensors: Normal right side . Normal left side Motor strength in the triceps muscle: Normal right side. Normal left side Deep tendon reflexes: Normal at the biceps. Normal at Brachioradialis. Normal at triceps Vertebral body tenderness to deep palpation over Cervical facet loading test: positive bilaterally Spurling test: positive bilaterally Neck distraction test: positive bilaterally Rancho sign: positive bilaterally Lumbar spine Motor strength lower extremities ,thigh and legs 5/5 Right side , 5/5 Left side Deep tendon reflexes : Normal Knee Jerk. Normal Ankle Jerk Vertebral body tenderness Pacheco Test positive over BL L3-L4 Lumbar facet Loading Test: positive Right / positive Left L4-L5, L5-S1 Range of motion of the lumbar spine Flexion 30 degrees, extension 10 degrees Straight Leg Raise test: Left/ Right positive at < 35 degrees Duane test: positive right / positive left. Severe tenderness over the Sacroiliac joint on the Right / Left sides Gaenslen test: positive bilaterally Seated flexion test: positive bilaterally. Sacral spine : Severe tenderness over the Sacroiliac joint: right side / left side Range of motion: Flexion of the lumbar spine <60 degrees Range of motion: Extension of the lumbar spine <20 degrees Gaenslen's Test positive Duane test: positive right side / left side Thigh Thrust Test Sacral Thrust Test Imaging: CT non contrast of the cervical spine from 05/15/[address] non contrast of the lumbar spine from 12/08/23 reviewed Assessment/ Plan : Lumbar radiculopathy, Cervical radiculopathy Will manage residual pain and may RTC on an as needed basis. All questions answered. I have spent greater than 30 minutes on patient care today. Dr Morales was available by phone for the evaluation of this patient. The time was used to review the medical records including relevant urine studies and Prescription history (MAPs), review of the available imaging, evaluation and examination of the patient, coordination of care with the medical staff and if applicable referring physicians, as well as creation of the medical record PQRS Narrative: Smoking Status Former smoker Hx Alcohol Use (MH) No Home Medications: Ambulatory Orders Escitalopram [Lexapro] 10 mg PO QAM 09/12/14 Aspirin 81 mg PO QAM 11/15/18 Atorvastatin [Lipitor] 80 mg PO QAM 10/26/20 Calcium Carbonate/Vitamin D3 [Calcium 600 mg-Vit D3 5 mcg (200 unit)] 1 each PO DAILY 08/09/21 Pantoprazole [Protonix] 40 mg PO DAILY 08/16/21 Ferrous Sulfate [Iron (65 MG Elemental)] 325 mg PO DAILY 01/16/24 Losartan [Cozaar] 50 mg PO DAILY 01/16/24 Metoprolol Succinate (ER) [Toprol Xl] 25 mg PO DAILY 01/16/24 hydroCHLOROthiazide 25 mg PO DAILY 01/16/24 Controlled Substance Measures - Controlled Substance Measures Is patient prescribed a controlled substance at discharge?: No
== END ==
LOC: PNWHC3 10:22
PROVIDERS: ATTEND Specialist
DX: M47.26 Other spondylosis with radiculopathy, lumbar region (principal); Z87.891 Personal history of nicotine dependence; Z91.048 Other nonmedicinal substance allergy status; Z88.1 Allergy status to other antibiotic agents; Z88.2 Allergy status to sulfonamides; Z88.7 Allergy status to serum and vaccine; Z91.040 Latex allergy status
CPT/HCPCS: 99211

== ENCOUNTER → 2024-12-16 | Outpatient (CLI) | payer MEDICARE ==
--- NOTE | 2024-12-16 13:42 | US ---
EXAMINATION TYPE: US axilla RT DATE OF EXAM: 12/16/2024 COMPARISON: CLINICAL INDICATION: Female, 79 years old with history of M79.621 PAIN IN RT UPPER ARM; Right mastect anuj. Right arm pain and tightening. Hx of prominent lymph node. TECHNIQUE: Sonographic images taken of area of concern. FINDINGS: Area of concern scanned. No prominent masses, fluid collections or lesions seen. Promine nt lymph node with short axis = 0.8 cm and cortical thickness= 3.6 mm. IMPRESSION: As above. A prominent benign-appearing right axillary lymph node is marked by the techno logist. Otherwise unremarkable study. [facility], , 12/16/2024 1:40 PM
== END | disposition home or self-care (01) ==
LOC: RADUSWWP 13:17
PROVIDERS: ATTEND Family Medicine
DX: M79.621 Pain in right upper arm (principal)

== ENCOUNTER → 2025-04-22 | Outpatient (CLI) | payer MEDICARE ==
--- NOTE | 2025-04-22 13:49 | MR ---
EXAMINATION TYPE: MR knee LT wo con DATE OF EXAM: 04/22/2025 10:58 AM COMPARISON: None. CLINICAL INDICATION: Female, 80 years old with history of M25.562 PAIN IN LEFT KNEE, Left knee pain, history of surgery IV Contrast: cc (None if empty) TECHNIQUE: Multiplanar, multisequence imaging of the left knee is performed without IV contrast. FINDINGS: There is no bone contusion or fracture. There is a tiny joint effusion. There is moderate to marked thinning of the articular cartilage of the patellofemoral compartment wit h small subchondral cyst within the patella. There is moderate thinning of the articular cartilage in the medial compartment with mild hypertrophic spurring. There is mild to moderate narrowing of the a rticular cartilage in the lateral compartment with mild hypertrophic spurring. There is diffuse abnormal signal intensity within the posterior horn and body of both the medial and lateral meniscus. There is a probable small tear of the posterior horn medial meniscus extending to t he inferior surface. There is a horizontal tear of the body of the lateral meniscus The cruciate and collateral ligaments are intact. The patellar and quadriceps tendons are intact. IMPRESSION: 1. Small joint effusion. 2. 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 3. 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 4. No ligamentous injury [facility], , 04/22/2025 1:47 PM
== END | disposition home or self-care (01) ==
LOC: RADMRIMAIN 09:48
PROVIDERS: ATTEND Orthopaedic Surgery
DX: M17.12 Unilateral primary osteoarthritis, left knee (principal); M23.362 Other meniscus derangements, other lateral meniscus, left knee